=== PATIENT | male | born 1980 | race Native Hawaiian/Other Pacific Islander ===

== ENCOUNTER 2019-01-21 13:11 | Emergency (ER) | payer OTHER ==
[2019-01-21 13:20] VITALS: RESP 18
[2019-01-21] MEDS ORDERED: KETOROLAC 60 MG/2 ML VIAL IM STA (13:45)
--- NOTE | 2019-01-21 13:51 | ED ---
Back Pain HPI - General Chief Complaint: Back Pain/Injury Stated Complaint: back pain Time Seen by Provider: 01/21/19 13:37 Source: patient, RN notes reviewed Limitations: no limitations - History of Present Illness Initial Comments: 38-year-old male presents emergency Department with chief complaint of low back pain. Patient states he did fall a few weeks ago and then mild discomfort states he woke up this morning very stiff left low back pain rates into his hip. Patient states he has some symptoms associated numbness but no saddle anesthesias. Patient denies any bowel bladder incontinence or retention. Denies any abdominal pain. Patient is a known diabetic well-controlled. Patient denies any chest pain, shortness breath, headache, dizziness, fever or chills. - Related Data Previous Rx's Medication Instructions Recorded Cyclobenzaprine [Flexeril] 10 mg PO TID PRN #15 tab 01/21/19 Hydrocodone/Acetaminophen [[place] 1 tab PO Q6HR PRN #12 tab 01/21/19 5-325] Ibuprofen [Motrin] 600 mg PO Q8HR PRN #30 tab 01/21/19 Allergies Allergy/AdvReac Type Severity Reaction Status Date / Time No Known Allergies Allergy Verified 01/21/19 13:20 Review of Systems ROS Statement: Those systems with pertinent positive or pertinent negative responses have been documented in the HPI. ROS Other: All systems not noted in ROS Statement are negative. Past Medical History Past Medical History: Diabetes Mellitus History of Any Multi-Drug Resistant Organisms: None Reported Past Surgical History: No Surgical Hx Reported Past Psychological History: No Psychological Hx Reported Smoking Status: Current every day smoker Past Alcohol Use History: Occasional Past Drug Use History: None Reported General Exam Limitations: no limitations General appearance: alert, in no apparent distress Head exam: Present: atraumatic, normocephalic, normal inspection Eye exam: Present: normal appearance, PERRL, EOMI. Absent: scleral icterus, conjunctival injection, periorbital swelling ENT exam: Present: normal exam, mucous membranes moist Neck exam: Present: normal inspection, full ROM. Absent: tenderness, meningismus, lymphadenopathy Respiratory exam: Present: normal lung sounds bilaterally. Absent: respiratory distress, wheezes, rales, rhonchi, stridor Cardiovascular Exam: Present: regular rate, normal rhythm, normal heart sounds. Absent: systolic murmur, diastolic murmur, rubs, gallop, clicks GI/Abdominal exam: Present: soft, normal bowel sounds. Absent: distended, tenderness, guarding, rebound, rigid Extremities exam: Present: other (Lower extremity strength equal bilaterally, neurovascular intact equal color equal warmth there is pain with left straight leg raise) Back exam: Present: full ROM (Moderate discomfort), tenderness (Left low back), muscle spasm, paraspinal tenderness. Absent: vertebral tenderness Neurological exam: Present: alert, oriented X3, CN II-XII intact, reflexes normal. Absent: motor sensory deficit Skin exam: Present: warm, dry, intact, normal color. Absent: rash Course Vital Signs 01/21/19 13:18 Temperature 97.7 F Pulse Rate 83 Respiratory 18 Rate Blood Pressure 123/71 O2 Sat by Pulse 98 Oximetry Medical Decision Making - Medical Decision Making 38-year-old male presents emergency Department chief complaint of left low back pain. Patient's pain is worse with movement and reproducible. Patient symptoms consistent with lumbar region With it. X-rays obtained secondary to recent fall onto his back which showed no evidence of compression fracture though there is moderate spurring noted. Patient we discharged with pain medication, muscle relaxer. Disposition Clinical Impression: Lumbar radiculopathy Disposition: HOME SELF-CARE Condition: Stable Instructions (If sedation given, give patient instructions): Acute Low Back Pain (ED) Additional Instructions: Please return to the Emergency Department if symptoms worsen or any other concerns. Prescriptions: Cyclobenzaprine [Flexeril] 10 mg PO TID PRN #15 tab PRN Reason: Muscle Spasm Ibuprofen [Motrin] 600 mg PO Q8HR PRN #30 tab PRN Reason: Pain Hydrocodone/Acetaminophen [[place] 5-325] 1 tab PO Q6HR PRN #12 tab PRN Reason: Pain Is patient prescribed a controlled substance at d/c from ED?: No Referrals: Giuliano De Jesus MD [Primary Care Provider] - 1-2 days Time of Disposition: 14:29
--- NOTE | 2019-01-21 14:08 | XR ---
EXAMINATION TYPE: XR lumbosacral spine min 4V DATE OF EXAM: 01/21/2019 COMPARISON: NONE HISTORY: Back pain TECHNIQUE: 5 views FINDINGS: Lumbar vertebra have normal alignment. Posterior elements are intact. There is minor spurri ng of the endplates. Disc spaces are fairly normal. Sacroiliac joints appear normal. IMPRESSION: Minimal spurring. Otherwise negative exam. No fracture.
[2019-01-21 14:46] VITALS: BP 129/80; PULSE 76; TEMP 97.9
== END 2019-01-21 14:46 | disposition home or self-care (01) ==
LOC: EC 13:11
DX: M54.16 Radiculopathy, lumbar region (principal); F17.200 Nicotine dependence, unspecified, uncomplicated; Z91.81 History of falling
CPT/HCPCS: 72110; 99283; 96372; J1885

== ENCOUNTER → 2020-07-02 | Outpatient (CLI) | payer OTHER ==
[2020-07-02 11:57] LABS: Basophils % (A) 1 %; Eosinophils # (A) 0.2 k/uL (0-0.7); Eosinophils % (A) 3 %; HCT 44.4 % (39.0-53.0); HGB 14.4 gm/dL (13.0-17.5); Lymphocytes # (A) 1.4 k/uL (1.0-4.8); Lymphocytes % (A) 23 %; MCH 28.6 pg (25.0-35.0); MCHC 32.5 g/dL (31.0-37.0); MCV 88.1 fL (80.0-100.0); Mean Platelet Volume 7.3; Monocytes # (A) 0.2 k/uL (0-1.0); Monocytes % (A) 4 %; Neutrophils # (A) 4.1 k/uL (1.3-7.7); Neutrophils % (A) 68 %; Platelet Count 132 k/uL (150-450); RBC 5.04 m/uL (4.30-5.90); RDW 13.6 % (11.5-15.5)
[2020-07-03 01:01] LABS: Hemoglobin A1C 7.9 % (4.0-6.0)
[2020-07-03 03:44] LABS: African American GFR (CKD) 130.4 (60.0-200.0); Albumin 4.4 g/dL (3.80-4.90); Albumin/Globulin Ratio 1.52 (1.60-3.17); Anion Gap 9.1 mmol/L (4.00-12.00); BUN/Creat Ratio 18.75 Ratio (12.00-20.00); Calcium 9.3 mg/dL (8.7-10.3); Carbon Dioxide 26.9 mmol/L (21.6-31.8); Chol/HDL Ratio 6.79; Globulin 2.9 g/dL (1.6-3.3); LDL Cholesterol,Calculated 123.2 mg/dL (0.0-131.0); Non-African American GFR(CKD) 112.5 (60.0-200.0); Potassium 4.2 mmol/L (3.5-5.5); Total Bilirubin 0.6 mg/dL (0.3-1.2); Total Protein 7.3 g/dL (6.2-8.2); VLDL Calculation 38.8 mg/dL (5.00-40.00)
== END | disposition home or self-care (01) ==
LOC: LABWHC1 09:52
PROVIDERS: ATTEND Family Medicine
DX: E11.9 Type 2 diabetes mellitus without complications (principal); Z20.9 Contact with and (suspected) exposure to unspecified communicable disease
CPT/HCPCS: 36415; 80053; 80061; 83036; 85025; 86803

== ENCOUNTER → 2020-09-01 | Outpatient (CLI) | payer OTHER ==
[2020-09-01 10:33] LABS: Basophils # (A) 0.1 k/uL (0-0.2); Basophils % (A) 1 %; Eosinophils # (A) 0.2 k/uL (0-0.7); Eosinophils % (A) 3 %; HGB 14.8 gm/dL (13.0-17.5); Lymphocytes # (A) 1.2 k/uL (1.0-4.8); Lymphocytes % (A) 23 %; MCH 30.2 pg (25.0-35.0); MCHC 34.5 g/dL (31.0-37.0); MCV 87.5 fL (80.0-100.0); Mean Platelet Volume 7.3; Monocytes # (A) 0.3 k/uL (0-1.0); Monocytes % (A) 5 %; Neutrophils # (A) 3.4 k/uL (1.3-7.7); Neutrophils % (A) 67 %; Platelet Count 123 k/uL (150-450); RBC 4.92 m/uL (4.30-5.90); WBC 5.1 k/uL (3.8-10.6)
[2020-09-01 15:50] LABS: African American GFR (CKD) 124.3 (60.0-200.0); Albumin 4.4 g/dL (3.80-4.90); Albumin/Globulin Ratio 1.42 (1.60-3.17); Anion Gap 9.7 mmol/L (4.00-12.00); BUN/Creat Ratio 15.56 Ratio (12.00-20.00); Calcium 9.4 mg/dL (8.7-10.3); Carbon Dioxide 24.3 mmol/L (21.6-31.8); Chol/HDL Ratio 6.58; Globulin 3.1 g/dL (1.6-3.3); Non-African American GFR(CKD) 107.2 (60.0-200.0); Potassium 4.1 mmol/L (3.5-5.5); Total Bilirubin 0.6 mg/dL (0.2-1.2); Total Protein 7.5 g/dL (6.2-8.2)
== END | disposition home or self-care (01) ==
LOC: LABWHC1 09:25
PROVIDERS: ATTEND Nurse Practitioner Family
DX: E11.9 Type 2 diabetes mellitus without complications (principal)
CPT/HCPCS: 36415; 80053; 80061; 83036; 85025

== ENCOUNTER → 2020-09-03 | Outpatient (CLI) | payer OTHER ==
--- NOTE | 2020-09-03 12:04 | XR ---
EXAMINATION TYPE: XR tibia fibula LT DATE OF EXAM: 09/03/2020 COMPARISON: NONE HISTORY: Pain TECHNIQUE: Two views are submitted. FINDINGS: The osseous structures are intact. The joint spaces are preserved. Chronic deformity involving the medial malleolus. Large calcaneal spurs are seen and there is calcification along the plantar a bone erosive. Small amount of soft tissue edema posterior to the distal tibia and fibula. Correlate clinic ally. Pes planus deformity suspected. IMPRESSION: 1. No acute osseous abnormality. See above.
--- NOTE | 2020-09-03 12:06 | XR ---
EXAMINATION TYPE: XR wrist complete LT DATE OF EXAM: 09/03/2020 COMPARISON: NONE HISTORY: Pain TECHNIQUE: Four views submitted. FINDINGS: The osseous structures are intact. The joint spaces are preserved and there is no acute fracture or dislocation. Chronic appearing deformity of the fifth metacarpal. IMPRESSION: 1. No definite acute fracture or dislocation if symptoms persist, follow-up study in 7 to 10 days wo uld be suggested
== END | disposition home or self-care (01) ==
LOC: RADXRMAIN 11:35
PROVIDERS: ATTEND Nurse Practitioner Family
DX: M79.605 Pain in left leg (principal); M25.532 Pain in left wrist

== ENCOUNTER → 2020-09-12 | Outpatient (CLI) | payer OTHER ==
--- NOTE | 2020-09-12 09:41 | US ---
EXAMINATION TYPE: US venous doppler duplex LE LT DATE OF EXAM: 09/12/2020 8:44 AM COMPARISON: NONE CLINICAL HISTORY: M79.605 PAIN IN LT LEG. Pain in leg. No injury. No redness. No swelling. SIDE PERFORMED: Left TECHNIQUE: The lower extremity deep venous system is examined utilizing real time linear array sonog subhash with graded compression, doppler sonography and color-flow sonography. VESSELS IMAGED: Common Femoral Vein Deep Femoral Vein Greater Saphenous Vein * Femoral Vein Popliteal Vein Small Saphenous Vein * Proximal Calf Veins (* superficial vessels) Left Leg: Negative for DVT IMPRESSION: 1. Left lower extremity negative for deep venous thrombosis.
--- NOTE | 2020-09-14 10:22 | US ---
EXAMINATION TYPE: US liver DATE OF EXAM: 09/12/2020 COMPARISON: NONE CLINICAL HISTORY: R74.01 ELEVATED LEVELS OF LIVER TRANSINASE. Abnormal labs. EXAM MEASUREMENTS: Liver Length: 15.1 cm Gallbladder Wall: 0.2 cm Right Kidney: 12.0 x 5.8 x 6.5 cm Pancreas: Tail obscured by overlying bowel gas Liver: Echogenic and coarse. Hypoechoic area visualized adjacent to GB = 2.1 x 2.4 x 1.9 cm . This is nonspecific. Additional workup with contrast CT is recommended Gallbladder: wnl Evidence for sonographic Damon's sign: neg CBD: Obscured by overlying bowel gas Right Kidney: No hydronephrosis or masses seen IMPRESSION: 1. Moderate fatty infiltration liver. 2. Hypoechoic area adjacent to the gallbladder bed fossa. Consider CT examination with contrast for a dditional evaluation.
== END | disposition home or self-care (01) ==
LOC: RADUSWWP 08:17
PROVIDERS: ATTEND Family Medicine
DX: R74.01 Elevation of levels of liver transaminase levels (principal)
CPT/HCPCS: 76705

== ENCOUNTER → 2020-09-22 | Outpatient (CLI) | payer OTHER ==
[2020-09-22 11:29] LABS: African American GFR (CKD) >90 (>60 ml/min/1.73 sqM); Blood Urea Nitrogen 15 mg/dL (9-20); Non-African American GFR(CKD) >90 (>60 ml/min/1.73 sqM)
--- NOTE | 2020-09-22 12:27 | CT ---
EXAMINATION TYPE: CT abdomen w con DATE OF EXAM: 09/22/2020 COMPARISON: NONE HISTORY: 40-year-old male liver mass, R16.0 Hepatomegaly not elsewhere classified. TECHNIQUE: Contiguous axial scanning of the abdomen following administration of 100 ml Omnipaque 300 IV contrast. Delayed images through the kidneys and coronal/sagittal reconstructions performed. CT DLP: 2026.5 mGycm Automated exposure control for dose reduction was used. FINDINGS: Heart normal size without pericardial effusion. Strandy atelectasis inferior lingula. Lung bases othe rwise clear without pleural effusion. There is subtle contour nodularity of the liver. No focal lesion is seen. Liver measures 16.7 cm cran iocaudal which is upper limits of normal. Portal venous system is patent. No biliary ductal dilatatio n. Gallbladder hydropic at 12.0 x 5.4 cm but without any surrounding inflammation or wall thickening [place] arent by CT. The adrenal glands, kidneys, and pancreas appear within normal limits. Spleen enlarged at 18.1 cm. No dilated small bowel, free fluid, or free air. No mesenteric or retroperitoneal lymphadenopathy. Mild stool burden. No pericolonic inflammatory change. The pelvis is not imaged. Bones: Degenerative bridging ankylosis SI joints. DISH within the visualized lower thoracic spine. IMPRESSION: 1. SUBTLE CONTOUR NODULARITY OF THE LIVER. FURTHER CLINICAL CORRELATION/WORKUP RECOMMENDED FOR UNDERL EMILEE CIRRHOSIS. 2. SPLENOMEGALY AT 18.1 CM. 3. HYDROPIC GALLBLADDER PROBABLY DUE TO FASTING STATE. IF RIGHT UPPER QUADRANT PAIN, FOLLOW-UP ULTRAS OUND OR HIDA SCAN. 4. PELVIS NOT IMAGED.
== END | disposition home or self-care (01) ==
LOC: RADCTMAIN 10:08
PROVIDERS: ATTEND Family Medicine
DX: R16.1 Splenomegaly, not elsewhere classified (principal); K82.8 Other specified diseases of gallbladder; K76.89 Other specified diseases of liver
CPT/HCPCS: 82565; 84520; 74160; 36415; Q9967

== ENCOUNTER → 2020-09-29 | Outpatient (CLI) | payer OTHER ==
[2020-09-29 13:04] LABS: HCT 42.7 % (39.0-53.0); HGB 14.9 gm/dL (13.0-17.5); MCH 30.4 pg (25.0-35.0); MCHC 34.8 g/dL (31.0-37.0); MCV 87.2 fL (80.0-100.0); Mean Platelet Volume 7.5; Platelet Count 108 k/uL (150-450); RBC 4.89 m/uL (4.30-5.90); RDW 13.2 % (11.5-15.5); WBC 5.5 k/uL (3.8-10.6)
[2020-09-29 20:38] LABS: African American GFR (CKD) 130.4 (60.0-200.0); Albumin 4.7 g/dL (3.80-4.90); Albumin/Globulin Ratio 1.47 (1.60-3.17); Anion Gap 5.2 mmol/L (4.00-12.00); Calcium 9.6 mg/dL (8.7-10.3); Carbon Dioxide 29.8 mmol/L (21.6-31.8); Chol/HDL Ratio 6.75; Globulin 3.2 g/dL (1.6-3.3); LDL Cholesterol,Calculated 136.4 mg/dL (0.0-131.0); Non-African American GFR(CKD) 112.5 (60.0-200.0); Potassium 4.5 mmol/L (3.5-5.5); Total Bilirubin 0.5 mg/dL (0.3-1.2); Total Protein 7.9 g/dL (6.2-8.2); VLDL Calculation 47.6 mg/dL (5.00-40.00)
[2020-09-29 21:07] LABS: Hemoglobin A1C 8.2 % (4.0-6.0)
== END | disposition home or self-care (01) ==
LOC: LABWHC1 11:12
PROVIDERS: ATTEND Nurse Practitioner Family
DX: E11.9 Type 2 diabetes mellitus without complications (principal)
CPT/HCPCS: 36415; 80053; 80061; 83036; 85027

== ENCOUNTER → 2020-10-24 | Outpatient (CLI) | payer OTHER ==
[2020-10-24 11:12] LABS: Basophils # (A) 0.1 k/uL (0-0.2); Basophils % (A) 1 %; Eosinophils # (A) 0.1 k/uL (0-0.7); Eosinophils % (A) 3 %; HCT 42.4 % (39.0-53.0); HGB 14.8 gm/dL (13.0-17.5); Lymphocytes # (A) 1.2 k/uL (1.0-4.8); Lymphocytes % (A) 23 %; MCH 30.4 pg (25.0-35.0); MCHC 35.1 g/dL (31.0-37.0); MCV 86.7 fL (80.0-100.0); Mean Platelet Volume 7.3; Monocytes # (A) 0.3 k/uL (0-1.0); Monocytes % (A) 5 %; Neutrophils # (A) 3.5 k/uL (1.3-7.7); Neutrophils % (A) 67 %; Platelet Count 110 k/uL (150-450); RBC 4.88 m/uL (4.30-5.90); RDW 13.3 % (11.5-15.5); WBC 5.1 k/uL (3.8-10.6)
[2020-10-24 11:32] LABS: Prothrombin Time 10.7 sec (9.0-12.0)
[2020-10-24 15:28] LABS: Protein, Total 7.3 g/dL (6.2-8.2)
[2020-10-24 16:19] LABS: Hepatitis B Surface Antigen Non-Reactive (Non-Reactive)
[2020-10-24 16:20] LABS: Hepatitis A Antibody IgM Non-Reactive (Non-Reactive); Hepatitis B Core IgM Non-Reactive (Non-Reactive); Hepatitis C IgG Antibody Non-Reactive (Non-Reactive)
[2020-10-24 17:00] LABS: % Iron Saturation 23.59 (15.00-50.00); African American GFR (CKD) 124.3 (60.0-200.0); Albumin 4.6 g/dL (3.80-4.90); Albumin/Globulin Ratio 1.7 (1.60-3.17); Anion Gap 10.5 mmol/L (4.00-12.00); BUN/Creat Ratio 13.33 Ratio (12.00-20.00); Calcium 9.6 mg/dL (8.7-10.3); Carbon Dioxide 26.5 mmol/L (21.6-31.8); Globulin 2.7 g/dL (1.6-3.3); Non-African American GFR(CKD) 107.2 (60.0-200.0); Potassium 4.3 mmol/L (3.5-5.5); Total Bilirubin 0.7 mg/dL (0.2-1.2); Total Protein 7.3 g/dL (6.2-8.2)
[2020-10-24 17:41] LABS: HIV 2 AB Non-Reactive (Non-Reactive); HIV AB P24 Non-Reactive (Non-Reactive); HIV P24 AG Non-Reactive (Non-Reactive)
[2020-10-24 20:09] LABS: Alpha Fetoprotein, Tumor Mkr 2.9 ng/mL (0.0-7.9)
[2020-10-26 09:03] LABS: Ceruloplasmin 23.7 mg/dL (20.0-60.0)
== END | disposition home or self-care (01) ==
LOC: LABWHC1 09:45
PROVIDERS: ATTEND Nurse Practitioner
DX: D69.6 Thrombocytopenia, unspecified (principal); R74.01 Elevation of levels of liver transaminase levels; Z71.3 Dietary counseling and surveillance
CPT/HCPCS: 36415; 80053; 80074; 82103; 82105; 82390; 82728; 83516; 83540; 83550; 84165; 85025; 85610; 86038; 86376; 87390

== ENCOUNTER 2020-10-30 07:25 | Day surgery (SDC) | payer OTHER ==
[2020-10-29 10:45] VITALS: BMI 37.3
[~2020-10-30 07:25] MED LIST: LACTATED RINGERS 1,000 ML IV SCH; LIDOCAINE 1% (10MG/ML) FOR IV START INTRADERMA PRN
[2020-10-30 08:09] VITALS: RESP 16; TEMP 971
[2020-10-30 08:12] LABS: Glucose,Whole Blood 163 mg/dL (75-99)
[2020-10-30] MEDS ORDERED: PROPOFOL 10 MG/ML 20 ML VIAL IV ONE (08:43)
[2020-10-30] MEDS ORDERED: LIDOCAINE 1% INJ 10MG/ML (20 ML MDV) ONE (08:43)
--- NOTE | 2020-10-30 09:01 | P.PCN ---
Date of Procedure: 10/30/20 Description of Procedure: BRIEF HISTORY: Patient is a 40-year-old male presenting for EGD for evaluation of heartburn. The patient was seen in the clinic and started on omeprazole therapy for symptoms of reflux. He was also evaluated for elevated liver enzymes and splenomegaly and is scheduled to follow up in the clinic for results of serologic workup. PROCEDURE PERFORMED: Esophagogastroduodenoscopy with biopsy. PREOPERATIVE DIAGNOSIS: Heartburn, GERD, rule out esophageal varices. ESTIMATED BLOOD LOSS: Minimal. IV sedation per anesthesia. PROCEDURE: After informed consent was obtained, the patient was brought into the endoscopy unit. IV sedation was administered by Anesthesia under continuous monitoring. Initially the Olympus GIF-190 video endoscope was inserted into the mouth. Esophagus intubated without any difficulty. It was gradually advanced into the stomach and duodenum and carefully examined. The bulb and the second part of the duodenum appeared normal, with biopsies taken. The scope at this time was withdrawn to the stomach, adequately insufflated with air, and upon careful examination, mucosa of the antrum, body, cardia and the fundus appeared normal, except for some mild scattered erythema in the antrum and body suggestive of mild gastritis with biopsies taken. The scope was then withdrawn into the esophagus. The GE junction was located at 41 cm from the incisors. The esophagus appeared normal. There were no erosions or ulcerations or varices noted seen and the patient tolerated the procedure well. IMPRESSION: 1. Mild gastritis. 2. Normal-appearing esophagus with no varices noted. 3. Biopsies of the duodenum, antrum and body. RECOMMENDATIONS: The findings of this examination were discussed with the patient. Okay to resume diet. Okay to resume medications. Continue omeprazole therapy. Follow- up in GI clinic as scheduled. If diagnosis of cirrhosis is confirmed would recommend repeat EGD in 2 years for evaluation of esophageal varices.
[2020-10-30] MEDS ORDERED: ONDANSETRON 4 MG/2 ML VIAL ONE (09:02)
[2020-10-30 09:20] VITALS: BP 128/84; PULSE 66
== END 2020-10-30 09:54 | disposition home or self-care (01) ==
LOC: ORWHC2ENDO 07:25
PROVIDERS: ATTEND Internal Medicine
DX: K29.50 Unspecified chronic gastritis without bleeding (principal); B96.81 Helicobacter pylori [H. pylori] as the cause of diseases classified elsewhere; K21.9 Gastro-esophageal reflux disease without esophagitis; E11.9 Type 2 diabetes mellitus without complications; F17.200 Nicotine dependence, unspecified, uncomplicated; Z79.84 Long term (current) use of oral hypoglycemic drugs; Z79.899 Other long term (current) drug therapy
CPT/HCPCS: 43239; J2405; J2001; J2704; 88305; 88342

== ENCOUNTER → 2020-11-06 | Outpatient (CLI) | payer OTHER ==
--- NOTE | 2020-11-07 00:04 | MR ---
EXAMINATION TYPE: MR liver wo/w con DATE OF EXAM: 11/06/2020 COMPARISON: CT scan 09/22/2020 HISTORY: Abnormal CT, Liver Nodule CONTRAST: Standard multiplanar, multisequence MRI departmental protocol utilizing 12 mL intravenous Gadavist ga dolinium contrast. Spleen is moderately enlarged and measures 18 cm. Liver shows no focal defect. The bile ducts are not dilated. Common bile duct appears normal. Liver shows no focal defect. Spleen shows no focal defect. There is no sign of pancreatic mass. Gallbladder appears normal. I see no gallbladder wall thickenin g. There is no evidence of ascites. There is no adrenal mass. Heart size is normal. There is no sign of pericardial effusion. There is no ascites. There is no evidence of pleural effusion. There is normal flow-void in the portal venous sy stem. Contrast images show normal enhancement of the portal venous system. There is no pathologic enh ancement of the liver and spleen. Kidneys show normal contrast enhancement. Kidneys have normal size and contour. There is no hydronephrosis. IMPRESSION: There is moderate splenomegaly not changed compared to recent CT scan. No focal abnormality. No abnor mality of the liver.
== END | disposition home or self-care (01) ==
LOC: RADMRIMAIN 11:22
PROVIDERS: ATTEND Nurse Practitioner
DX: R16.1 Splenomegaly, not elsewhere classified (principal); R93.2 Abnormal findings on diagnostic imaging of liver and biliary tract
CPT/HCPCS: 74183; A9585

== ENCOUNTER 2020-11-27 08:40 | Day surgery (SDC) | payer OTHER ==
[2020-11-27 09:15] LABS: Platelet Count 116 k/uL (150-450)
[2020-11-27 09:30] VITALS: RESP 16; TEMP 98
[2020-11-27] MEDS ORDERED: ALPRAZolam 0.5 MG TAB PO STA (09:38)
[2020-11-27 09:39] LABS: Prothrombin Time 10.6 sec (9.0-12.0)
[2020-11-27] MEDS ORDERED: HYDROmorphone 0.5 MG/0.5 ML SYRINGE IVP STA (10:07)
--- NOTE | 2020-11-27 10:34 | CT ---
EXAMINATION TYPE: CT biopsy liver DATE OF EXAM: 11/27/2020 COMPARISON: NONE HISTORY: Elevated LFTs CT DLP: 1029mGycm The procedure was explained to the patient. The risks, complications, benefits, and alternatives wer e discussed and any questions were answered. Informed consent was obtained. Patient was placed supi ne on the CT table and prepped and draped in the usual sterile fashion. All elements of maximal barrier and sterile technique utilized. Utilizing CT guidance, an 18 gauge core biopsy needle access into the left lobe of the liver was ach ieved and a single 18 gauge core sample was obtained. The patient was stable throughout the procedur e and remained stable upon discharge. IMPRESSION: 1. Successful 18 gauge core biopsy of the liver.
[2020-11-27 13:33] VITALS: PULSE 78
[2020-11-27 14:13] VITALS: BP 116/69
== END 2020-11-27 14:26 | disposition home or self-care (01) ==
LOC: RADPROMAIN 08:40
PROVIDERS: ATTEND Internal Medicine Gastroenterology
DX: K74.60 Unspecified cirrhosis of liver (principal); K75.81 Nonalcoholic steatohepatitis (NASH); F17.210 Nicotine dependence, cigarettes, uncomplicated; E11.9 Type 2 diabetes mellitus without complications; E78.5 Hyperlipidemia, unspecified; E66.9 Obesity, unspecified; Z68.37 Body mass index [BMI] 37.0-37.9, adult; R16.1 Splenomegaly, not elsewhere classified; Z86.19 Personal history of other infectious and parasitic diseases; D69.6 Thrombocytopenia, unspecified; Z83.3 Family history of diabetes mellitus; Z79.84 Long term (current) use of oral hypoglycemic drugs; Z79.899 Other long term (current) drug therapy
CPT/HCPCS: 82947; 85049; 85610; 88313; 88307; 96374; 36415; 47000; 77012; J1170

== ENCOUNTER → 2020-12-02 | Outpatient (CLI) | payer OTHER ==
[2020-12-02 18:35] LABS: Basophils # (A) 0.03 X 10*3/uL (0.00-0.10); Basophils % (A) 0.6 %; Eosinophils % (A) 1.9 %; HCT 43.6 % (39.6-50.0); HGB 14.8 g/dL (13.0-17.0); Lymphocytes # (A) 1.29 X 10*3/uL (0.90-5.00); Lymphocytes % (A) 24.5 %; MCH 29.8 pg (27.0-32.0); MCHC 33.9 g/dL (32.0-37.0); MCV 87.9 fL (80.0-97.0); Mean Platelet Volume 10.3 fL (9.5-12.2); Monocytes # (A) 0.29 X 10*3/uL (0.20-1.00); Monocytes % (A) 5.5 %; Neutrophils # (A) 3.54 X 10*3/uL (1.80-7.70); Neutrophils % (A) 67.3 %; Platelet Count 127 X 10*3/uL (140-440); RBC 4.96 X 10*6/uL (4.40-5.60); RDW 13.2 % (11.5-14.5); WBC 5.26 X 10*3/uL (4.50-10.00)
[2020-12-02 18:59] LABS: Prothrombin Time 10.9 sec (9.9-11.9)
[2020-12-02 23:39] LABS: Albumin 4.3 g/dL (3.80-4.90); Albumin/Globulin Ratio 1.13 (1.60-3.17); Bilirubin, Conjugated 0.2 mg/dL (0.20-0.40); Bilirubin,Unconjugated 0.4 mg/dL; Globulin 3.8 g/dL (1.6-3.3); Total Bilirubin 0.6 mg/dL (0.3-1.2); Total Protein 8.1 g/dL (6.2-8.2)
== END | disposition home or self-care (01) ==
LOC: LABWHC1 10:08
PROVIDERS: ATTEND Nurse Practitioner
DX: R74.01 Elevation of levels of liver transaminase levels (principal); D73.1 Hypersplenism; A04.8 Other specified bacterial intestinal infections
CPT/HCPCS: 36415; 80076; 83013; 85025; 85610

== ENCOUNTER → 2021-01-05 | Outpatient (CLI) | payer OTHER ==
[2021-01-05 16:47] LABS: Hemoglobin A1C 7.3 % (4.0-6.0)
[2021-01-05 22:51] LABS: Chol/HDL Ratio 6.77
== END | disposition home or self-care (01) ==
LOC: LABWHC1 09:21
PROVIDERS: ATTEND Nurse Practitioner Family
DX: E11.9 Type 2 diabetes mellitus without complications (principal)
CPT/HCPCS: 36415; 80061; 83036

== ENCOUNTER 2021-02-09 16:11 | Emergency (ER) | payer OTHER ==
[2021-02-09 16:15] VITALS: RESP 18
[2021-02-09] MEDS ORDERED: SODIUM CHLORIDE 0.9% 1,000 ML IV STA (16:47)
[2021-02-09] MEDS ORDERED: MORPHINE SULFATE 4 MG/ML SYRINGE IVP STA (16:48)
[2021-02-09] MEDS ORDERED: PANTOPRAZOLE 40 MG/10 ML VIAL IVP STA (16:48)
--- NOTE | 2021-02-09 17:13 | ED ---
Dizziness HPI - General Chief Complaint: Dizziness Stated Complaint: Weakness Time Seen by Provider: 02/09/21 16:41 Source: patient, RN notes reviewed Mode of arrival: ambulatory Limitations: no limitations - History of Present Illness Initial Comments: Patient is a 40-year-old male that presents to emergency room complaining of dizziness and black stools. He notes that he was recently diagnosed with PRESTON. He notes over the last several days he's been lightheaded and noticed that his stools were dark in color. He denied any medical history involving his intestines stomach aresymmetric. He did note that he was recently told he might have irritable bowel syndrome. He was in no pain or discomfort while sitting up in bed during the exam interview. She denied any chest pain shortness of breath headache vomiting diarrhea constipation fever fatigue chills. - Related Data Home Medications Medication Instructions Recorded Confirmed metFORMIN HCL 1,000 mg PO BID 10/29/20 11/27/20 Multivitamins, Thera [Multivitamin 1 tab PO DAILY 11/12/20 11/27/20 (formulary)] Omeprazole 20 mg PO DAILY 11/12/20 11/12/20 Allergies Allergy/AdvReac Type Severity Reaction Status Date / Time No Known Allergies Allergy Verified 02/09/21 16:12 Review of Systems ROS Statement: Those systems with pertinent positive or pertinent negative responses have been documented in the HPI. ROS Other: All systems not noted in ROS Statement are negative. Past Medical History Past Medical History: Diabetes Mellitus, GERD/Reflux Additional Past Medical History / Comment(s): abnormal liver function---having liver biopsy 11/18/20 History of Any Multi-Drug Resistant Organisms: None Reported Past Surgical History: No Surgical Hx Reported Additional Past Surgical History / Comment(s): recent EGD--H.pylori found and on antibiotics. Should be done before liver biopsy planned for 11/18/20 Past Anesthesia/Blood Transfusion Reactions: No Reported Reaction Past Psychological History: No Psychological Hx Reported Smoking Status: Current every day smoker Past Alcohol Use History: Rare Past Drug Use History: None Reported - Past Family History Father Family Medical History: Liver Disease Additional Family Medical History / Comment(s): ETOH cirrhosis General Exam Limitations: no limitations General appearance: alert, in no apparent distress, obese Head exam: Present: atraumatic, normocephalic, normal inspection Eye exam: Present: normal appearance, PERRL, EOMI. Absent: scleral icterus, conjunctival injection, periorbital swelling ENT exam: Present: normal exam, mucous membranes moist Neck exam: Present: normal inspection Respiratory exam: Present: normal lung sounds bilaterally. Absent: respiratory distress, wheezes, rales, rhonchi, stridor Cardiovascular Exam: Present: regular rate, normal rhythm, normal heart sounds. Absent: systolic murmur, diastolic murmur, rubs, gallop, clicks GI/Abdominal exam: Present: soft, tenderness (In the left lower suprapubic and right upper quadrant.), normal bowel sounds. Absent: distended, guarding, rebound, rigid Extremities exam: Present: normal inspection, full ROM, normal capillary refill. Absent: tenderness, pedal edema, joint swelling, calf tenderness Neurological exam: Present: alert, oriented X3, CN II-XII intact Psychiatric exam: Present: normal affect, normal mood Skin exam: Present: warm, dry, intact, normal color. Absent: rash Course Vital Signs 02/09/21 16:13 Temperature 98.3 F Pulse Rate 97 Respiratory 18 Rate Blood Pressure 127/73 O2 Sat by Pulse 99 Oximetry Medical Decision Making - Medical Decision Making 40-year-old male complaining of dizziness with dark colored stools. Labs, occult blood test, EKG, laboratory monitor, CT of the abdomen and pelvis, 40 mg Protonix, 4 mg of morphine ordered Labs unremarkable. Case discussed with Dr. Figueredo, patient can discharge home with follow-up to primary care. - Lab Data Result diagrams: 02/09/21 17:45 02/09/21 17:45 Lab Results 02/09/21 02/09/21 02/09/21 Range/Units 17:45 17:45 17:45 WBC 3.4 L (3.8-10.6) k/uL RBC 5.05 (4.30-5.90) m/uL Hgb 14.5 (13.0-17.5) gm/dL Hct 43.3 (39.0-53.0) % MCV 85.8 (80.0-100.0) fL MCH 28.7 (25.0-35.0) pg MCHC 33.4 (31.0-37.0) g/dL RDW 14.0 (11.5-15.5) % Plt Count 106 L (150-450) k/uL MPV 7.2 Neutrophils % 54 % Lymphocytes % 31 % Monocytes % 9 % Eosinophils % 3 % Basophils % 1 % Neutrophils # 1.8 (1.3-7.7) k/uL Lymphocytes # 1.1 (1.0-4.8) k/uL Monocytes # 0.3 (0-1.0) k/uL Eosinophils # 0.1 (0-0.7) k/uL Basophils # 0.0 (0-0.2) k/uL PT 10.3 (9.0-12.0) sec INR 1.0 (<1.2) Sodium (137-145) mmol/L Potassium (3.5-5.1) mmol/L Chloride (98-107) mmol/L Carbon Dioxide (22-30) mmol/L Anion Gap mmol/L BUN (9-20) mg/dL Creatinine (0.66-1.25) mg/dL Est GFR (CKD-EPI)AfAm (>60 ml/min/1.73 sqM) Est GFR (CKD-EPI)NonAf (>60 ml/min/1.73 sqM) Glucose (74-99) mg/dL Plasma Lactic Acid Flo (0.7-2.0) mmol/L Calcium (8.4-10.2) mg/dL Total Bilirubin (0.2-1.3) mg/dL AST (17-59) U/L ALT (4-49) U/L Alkaline Phosphatase (38-126) U/L Total Protein (6.3-8.2) g/dL Albumin (3.5-5.0) g/dL Urine Color Urine Appearance (Clear) Urine pH (5.0-8.0) Ur Specific [place] (1.001-1.035) Urine Protein (Negative) Urine Glucose (UA) (Negative) Urine Ketones (Negative) Urine Blood (Negative) Urine Nitrite (Negative) Urine Bilirubin (Negative) Urine Urobilinogen (<2.0) mg/dL Ur Leukocyte Esterase (Negative) Stool Occult Blood Negative (Negative) 02/09/21 02/09/21 02/09/21 Range/Units 17:45 17:45 17:45 WBC (3.8-10.6) k/uL RBC (4.30-5.90) m/uL Hgb (13.0-17.5) gm/dL Hct (39.0-53.0) % MCV (80.0-100.0) fL MCH (25.0-35.0) pg MCHC (31.0-37.0) g/dL RDW (11.5-15.5) % Plt Count (150-450) k/uL MPV Neutrophils % % Lymphocytes % % Monocytes % % Eosinophils % % Basophils % % Neutrophils # (1.3-7.7) k/uL Lymphocytes # (1.0-4.8) k/uL Monocytes # (0-1.0) k/uL Eosinophils # (0-0.7) k/uL Basophils # (0-0.2) k/uL PT (9.0-12.0) sec INR (<1.2) Sodium 141 (137-145) mmol/L Potassium 4.0 (3.5-5.1) mmol/L Chloride 106 (98-107) mmol/L Carbon Dioxide 27 (22-30) mmol/L Anion Gap 8 mmol/L BUN 12 (9-20) mg/dL Creatinine 0.80 (0.66-1.25) mg/dL Est GFR (CKD-EPI)AfAm >90 (>60 ml/min/1.73 sqM) Est GFR (CKD-EPI)NonAf >90 (>60 ml/min/1.73 sqM) Glucose 117 H (74-99) mg/dL Plasma Lactic Acid Flo 1.0 (0.7-2.0) mmol/L Calcium 9.2 (8.4-10.2) mg/dL Total Bilirubin 0.6 (0.2-1.3) mg/dL AST 112 H (17-59) U/L ALT 115 H (4-49) U/L Alkaline Phosphatase 82 (38-126) U/L Total Protein 7.5 (6.3-8.2) g/dL Albumin 4.1 (3.5-5.0) g/dL Urine Color Yellow Urine Appearance Clear (Clear) Urine pH 5.5 (5.0-8.0) Ur Specific [place] 1.050 H (1.001-1.035) Urine Protein Negative (Negative) Urine Glucose (UA) Negative (Negative) Urine Ketones Negative (Negative) Urine Blood Negative (Negative) Urine Nitrite Negative (Negative) Urine Bilirubin Negative (Negative) Urine Urobilinogen <2.0 (<2.0) mg/dL Ur Leukocyte Esterase Negative (Negative) Stool Occult Blood (Negative) - EKG Data -: EKG Interpreted by Me EKG shows normal: sinus rhythm Rate: normal EKG Comments: Ventricular rate 84 bpm, AL interval 136 ms, QRS duration 88 ms, QT/QTC 366/432 ms, PRT axes 58/21/53. Normal sinus rhythm, normal ECG. - Radiology Data Radiology results: report reviewed, image reviewed CT of the abdomen and pelvis: Normal appendix. Splenomegaly unchanged. Dilated gallbladder unchanged and suggestive of gallbladder dysfunction. No dilated ducts. Disposition Clinical Impression: Dehydration Disposition: HOME SELF-CARE Condition: Stable Instructions (If sedation given, give patient instructions): Dizziness (ED) Additional Instructions: Please return to the Emergency Department if symptoms worsen or any other concerns. Increase oral fluid intake. Follow-up primary care in 3-5 days. Is patient prescribed a controlled substance at d/c from ED?: No Referrals: Irvin Hernandez MD [Primary Care Provider] - 1-2 days Time of Disposition: 20:35
[2021-02-09 18:02] LABS: Basophils % (A) 1 %; Eosinophils # (A) 0.1 k/uL (0-0.7); Eosinophils % (A) 3 %; HCT 43.3 % (39.0-53.0); HGB 14.5 gm/dL (13.0-17.5); Lymphocytes # (A) 1.1 k/uL (1.0-4.8); Lymphocytes % (A) 31 %; MCH 28.7 pg (25.0-35.0); MCHC 33.4 g/dL (31.0-37.0); MCV 85.8 fL (80.0-100.0); Mean Platelet Volume 7.2; Monocytes # (A) 0.3 k/uL (0-1.0); Monocytes % (A) 9 %; Neutrophils # (A) 1.8 k/uL (1.3-7.7); Neutrophils % (A) 54 %; Platelet Count 106 k/uL (150-450); RBC 5.05 m/uL (4.30-5.90); WBC 3.4 k/uL (3.8-10.6)
[2021-02-09 18:11] LABS: ALT 115 U/L (4-49); AST 112 U/L (17-59); African American GFR (CKD) >90 (>60 ml/min/1.73 sqM); Albumin 4.1 g/dL (3.5-5.0); Alkaline Phosphatase 82 U/L (38-126); Anion Gap 8 mmol/L; Blood Urea Nitrogen 12 mg/dL (9-20); Calcium 9.2 mg/dL (8.4-10.2); Carbon Dioxide 27 mmol/L (22-30); Chloride 106 mmol/L (98-107); Glucose 117 mg/dL (74-99); Non-African American GFR(CKD) >90 (>60 ml/min/1.73 sqM); Sodium 141 mmol/L (137-145); Total Bilirubin 0.6 mg/dL (0.2-1.3); Total Protein 7.5 g/dL (6.3-8.2)
[2021-02-09 18:18] LABS: Prothrombin Time 10.3 sec (9.0-12.0)
--- NOTE | 2021-02-09 19:27 | CT ---
EXAMINATION TYPE: CT abdomen pelvis w con DATE OF EXAM: 02/09/2021 COMPARISON: 09/22/2020 HISTORY: Abdominal pain and dark stool. CT DLP: 1909.6 mGycm Automated exposure control for dose reduction was used. CONTRAST: Performed with IV Contrast, patient injected with 100ml mL of Isovue 300. Lung bases are clear. There is no pleural effusion. Heart size is normal. There is no pericardial eff usion. The liver spleen stomach pancreas appear intact. Spleen is enlarged and measures 18 cm. The bile duct s are not dilated. Gallbladder is dilated and measures 5.2 cm in diameter. I see no gallbladder wall thickening. There is no adrenal mass. Kidneys show satisfactory contrast opacification. There is no hydronephrosi s. Ureters are not dilated. There is no retroperitoneal adenopathy. Appendix is posterior and appears normal. Bladder distends smoothly. There is no inguinal hernia. There is no evidence of pelvic mass. There is no mesenteric edema. There is no ascites or free air. There is no bowel obstruction. The lum bar vertebra have normal alignment. There is no compression fracture. The bony pelvis is intact. Hip joints are intact. There is normal sacroiliac joints. There is no evidence of pelvic mass. IMPRESSION: Normal appendix. Splenomegaly unchanged. Dilated gallbladder unchanged and suggestive of gallbladder dysfunction. No dilated ducts.
[2021-02-09 19:55] LABS: Appearance,Urine Clear (Clear); Bilirubin,Urine Negative (Negative); Blood,Urine Negative (Negative); Color,Urine Yellow; Glucose,Urine (UA) Negative (Negative); Ketones,Urine Negative (Negative); Leukocyte Esterase,Urine Negative (Negative); Nitrite,Urine Negative (Negative); PH, Urine 5.5 (5.0-8.0); Protein,Urine Negative (Negative); Urobilinogen,Urine <2.0 mg/dL (<2.0)
[2021-02-09 20:53] VITALS: BP 111/74; PULSE 95; TEMP 98.1
== END 2021-02-09 20:53 | disposition home or self-care (01) ==
LOC: EC 16:11
DX: E86.0 Dehydration (principal); E11.9 Type 2 diabetes mellitus without complications; K21.9 Gastro-esophageal reflux disease without esophagitis; F17.200 Nicotine dependence, unspecified, uncomplicated; Z79.84 Long term (current) use of oral hypoglycemic drugs
CPT/HCPCS: 36415; 93005; 80053; 83605; 85025; 85610; 82272; 81003; 74177; 99285; 96374; 96361; C9113; Q9967

== ENCOUNTER → 2021-04-02 | Outpatient (CLI) | payer OTHER ==
[2021-04-02 15:22] LABS: Basophils # (A) 0.04 X 10*3/uL (0.00-0.10); Basophils % (A) 0.9 %; Eosinophils # (A) 0.13 X 10*3/uL (0.04-0.35); Eosinophils % (A) 2.9 %; HCT 39.4 % (39.6-50.0); HGB 13.2 g/dL (13.0-17.0); Lymphocytes # (A) 1.26 X 10*3/uL (0.90-5.00); Lymphocytes % (A) 27.8 %; MCH 29.3 pg (27.0-32.0); MCHC 33.5 g/dL (32.0-37.0); MCV 87.6 fL (80.0-97.0); Mean Platelet Volume 10.5 fL (9.5-12.2); Monocytes # (A) 0.25 X 10*3/uL (0.20-1.00); Monocytes % (A) 5.5 %; Neutrophils # (A) 2.85 X 10*3/uL (1.80-7.70); Neutrophils % (A) 62.7 %; Platelet Count 100 X 10*3/uL (140-440); RDW 13.5 % (11.5-14.5); WBC 4.54 X 10*3/uL (4.50-10.00)
[2021-04-02 15:44] LABS: African American GFR (CKD) 123.4 (60.0-200.0); Albumin 4.2 g/dL (3.80-4.90); Albumin/Globulin Ratio 1.35 (1.60-3.17); Anion Gap 6.6 mmol/L (4.00-12.00); BUN/Creat Ratio 13.33 Ratio (12.00-20.00); Calcium 9.1 mg/dL (8.7-10.3); Carbon Dioxide 27.4 mmol/L (21.6-31.8); Chol/HDL Ratio 6.36; Globulin 3.1 g/dL (1.6-3.3); LDL Cholesterol,Calculated 103.6 mg/dL (0.0-131.0); Non-African American GFR(CKD) 106.5 (60.0-200.0); Potassium 4.1 mmol/L (3.5-5.5); Total Bilirubin 0.7 mg/dL (0.3-1.2); Total Protein 7.3 g/dL (6.2-8.2); VLDL Calculation 30.4 mg/dL (5.00-40.00)
[2021-04-02 15:46] LABS: T4, Free (Free Thyroxine) 0.9 ng/dL (0.80-1.80)
[2021-04-02 17:39] LABS: Hemoglobin A1C 8.2 % (4.0-6.0)
== END | disposition home or self-care (01) ==
LOC: LABWHC1 09:53
PROVIDERS: ATTEND Family Medicine
DX: E11.9 Type 2 diabetes mellitus without complications (principal)
CPT/HCPCS: 36415; 80053; 80061; 83036; 84439; 84443; 85025

== ENCOUNTER → 2021-07-10 | Outpatient (CLI) | payer OTHER ==
[2021-07-10 15:04] LABS: Basophils # (A) 0.03 X 10*3/uL (0.00-0.10); Basophils % (A) 0.8 %; Eosinophils # (A) 0.09 X 10*3/uL (0.04-0.35); Eosinophils % (A) 2.5 %; HCT 41.4 % (39.6-50.0); HGB 13.7 g/dL (13.0-17.0); Lymphocytes # (A) 1.06 X 10*3/uL (0.90-5.00); Lymphocytes % (A) 28.9 %; MCH 27.8 pg (27.0-32.0); MCHC 33.1 g/dL (32.0-37.0); Mean Platelet Volume 10.2 fL (9.5-12.2); Monocytes # (A) 0.26 X 10*3/uL (0.20-1.00); Monocytes % (A) 7.1 %; Neutrophils # (A) 2.22 X 10*3/uL (1.80-7.70); Neutrophils % (A) 60.4 %; Platelet Count 100 X 10*3/uL (140-440); RBC 4.93 X 10*6/uL (4.40-5.60); RDW 12.8 % (11.5-14.5); WBC 3.67 X 10*3/uL (4.50-10.00)
[2021-07-10 18:01] LABS: African American GFR (CKD) 123.7 (60.0-200.0); Albumin 4.2 g/dL (3.8-4.9); Albumin/Globulin Ratio 1.23 (1.60-3.17); Anion Gap 13.3 mmol/L (4.00-12.00); BUN/Creat Ratio 12.42 Ratio (12.00-20.00); Blood Urea Nitrogen 11.1 mg/dL (9.0-27.0); Calcium 9.3 mg/dL (8.7-10.3); Carbon Dioxide 24.5 mmol/L (21.6-31.8); Chol/HDL Ratio 6.94 Ratio; Globulin 3.4 g/dL (1.6-3.3); HDL Cholesterol 18.6 mg/dL (40.00-60.00); LDL Cholesterol,Calculated 46.6 mg/dL (0.0-131.0); Non-African American GFR(CKD) 106.8 (60.0-200.0); Potassium 4.2 mmol/L (3.5-5.5); Total Bilirubin 1.1 mg/dL (0.30-1.20); Total Protein 7.7 g/dL (6.2-8.2); VLDL Calculation 63.8 mg/dL (5.00-40.00)
== END | disposition home or self-care (01) ==
LOC: LABWHC1 10:28
PROVIDERS: ATTEND Family Medicine
DX: E11.9 Type 2 diabetes mellitus without complications (principal)
CPT/HCPCS: 36415; 80053; 80061; 83036; 85025

== ENCOUNTER → 2021-07-27 | Outpatient (CLI) | payer OTHER ==
[2021-07-27 19:21] LABS: Basophils # (A) 0.03 X 10*3/uL (0.00-0.10); Eosinophils # (A) 0.07 X 10*3/uL (0.04-0.35); Eosinophils % (A) 2.3 %; HCT 42.8 % (39.6-50.0); HGB 13.9 g/dL (13.0-17.0); Lymphocytes # (A) 1.03 X 10*3/uL (0.90-5.00); Lymphocytes % (A) 33.8 %; MCH 28.3 pg (27.0-32.0); MCHC 32.5 g/dL (32.0-37.0); MCV 87.2 fL (80.0-97.0); Mean Platelet Volume 10.5 fL (9.5-12.2); Monocytes # (A) 0.17 X 10*3/uL (0.20-1.00); Monocytes % (A) 5.6 %; Neutrophils # (A) 1.74 X 10*3/uL (1.80-7.70); Platelet Count 99 X 10*3/uL (140-440); RBC 4.91 X 10*6/uL (4.40-5.60); RDW 13.3 % (11.5-14.5); WBC 3.05 X 10*3/uL (4.50-10.00)
[2021-07-27 19:30] LABS: Prothrombin Time 10.9 sec (9.9-11.9)
[2021-07-27 21:31] LABS: African American GFR (CKD) 129.5 (60.0-200.0); Albumin 4.3 g/dL (3.8-4.9); Albumin/Globulin Ratio 1.34 (1.60-3.17); Anion Gap 12.7 mmol/L (4.00-12.00); BUN/Creat Ratio 12.13 Ratio (12.00-20.00); Blood Urea Nitrogen 9.7 mg/dL (9.0-27.0); Calcium 9.5 mg/dL (8.7-10.3); Carbon Dioxide 23.3 mmol/L (21.6-31.8); Globulin 3.2 g/dL (1.6-3.3); Non-African American GFR(CKD) 111.7 (60.0-200.0); Potassium 4.2 mmol/L (3.5-5.5); Total Bilirubin 0.6 mg/dL (0.30-1.20); Total Protein 7.5 g/dL (6.2-8.2)
== END | disposition home or self-care (01) ==
LOC: LABWHC1 11:19
PROVIDERS: ATTEND Nurse Practitioner
DX: K74.60 Unspecified cirrhosis of liver (principal)
CPT/HCPCS: 36415; 80053; 82105; 85025; 85610

== ENCOUNTER → 2021-10-05 | Outpatient (CLI) | payer OTHER ==
[2021-10-05 21:02] LABS: ALT 61 U/L (10-49); AST 37 U/L (14-35); African American GFR (CKD) 123.4 (60.0-200.0); Albumin 4.3 g/dL (3.8-4.9); Albumin/Globulin Ratio 1.39 (1.60-3.17); Alkaline Phosphatase 82 U/L (41-126); BUN/Creat Ratio 10.78 Ratio (12.00-20.00); Blood Urea Nitrogen 9.7 mg/dL (9.0-27.0); Calcium 9.2 mg/dL (8.7-10.3); Carbon Dioxide 24.1 mmol/L (20.0-27.5); Chloride 104 mmol/L (96-109); Chol/HDL Ratio 5.21 Ratio; Globulin 3.1 g/dL (1.6-3.3); Glucose 199 mg/dL (70-110); Non-African American GFR(CKD) 106.5 (60.0-200.0); Potassium 4.4 mmol/L (3.5-5.5); Sodium 141 mmol/L (135-145); Total Protein 7.4 g/dL (6.2-8.2)
== END | disposition home or self-care (01) ==
LOC: LABWHC1 10:12
PROVIDERS: ATTEND Family Medicine
DX: E11.9 Type 2 diabetes mellitus without complications (principal)
CPT/HCPCS: 36415; 80053; 80061; 83036

== ENCOUNTER → 2022-01-04 | Outpatient (CLI) | payer OTHER ==
[2022-01-04 18:22] LABS: ALT 45 U/L (10-49); AST 41 U/L (14-35); African American GFR (CKD) 134.3 (60.0-200.0); Albumin/Globulin Ratio 1.45 (1.60-3.17); Alkaline Phosphatase 67 U/L (41-126); BUN/Creat Ratio 16.39 Ratio (12.00-20.00); Calcium 8.7 mg/dL (8.7-10.3); Carbon Dioxide 23.1 mmol/L (20.0-27.5); Chloride 109 mmol/L (96-109); Chol/HDL Ratio 3.36 Ratio; Globulin 2.8 g/dL (1.6-3.3); Glucose 140 mg/dL (70-110); Non-African American GFR(CKD) 115.9 (60.0-200.0); Potassium 4.3 mmol/L (3.5-5.5); Sodium 143 mmol/L (135-145); Total Protein 6.8 g/dL (6.2-8.2)
== END | disposition home or self-care (01) ==
LOC: LABWHC1 13:28
PROVIDERS: ATTEND Family Medicine
DX: E11.9 Type 2 diabetes mellitus without complications (principal)
CPT/HCPCS: 36415; 80053; 80061; 83036

== ENCOUNTER → 2022-03-16 | Outpatient (CLI) | payer OTHER ==
[2022-03-16 23:41] LABS: Basophils # (A) 0.02 X 10*3/uL (0.00-0.10); Basophils % (A) 0.5 %; Eosinophils # (A) 0.07 X 10*3/uL (0.04-0.35); Eosinophils % (A) 1.8 %; HCT 40.7 % (39.6-50.0); HGB 13.8 g/dL (13.0-17.0); Immature Grans, Automated 0.5 %; Lymphocytes # (A) 0.96 X 10*3/uL (0.90-5.00); Lymphocytes % (A) 24.4 %; MCH 28.8 pg (27.0-32.0); MCHC 33.9 g/dL (32.0-37.0); Mean Platelet Volume 10.4 fL (9.5-12.2); Monocytes # (A) 0.22 X 10*3/uL (0.20-1.00); Monocytes % (A) 5.6 %; NRBC Per 100 WBC 0 /100 WBCS (0.0-0.0); Neutrophils # (A) 2.65 X 10*3/uL (1.80-7.70); Neutrophils % (A) 67.2 %; Platelet Count 93 X 10*3/uL (140-440); RBC 4.79 X 10*6/uL (4.40-5.60); RDW 13.2 % (11.5-14.5); WBC 3.94 X 10*3/uL (4.50-10.00)
[2022-03-16 23:57] LABS: African American GFR (CKD) 128.6 (60.0-200.0); Albumin 4.2 g/dL (3.8-4.9); Albumin/Globulin Ratio 1.4 (1.60-3.17); BUN/Creat Ratio 13.38 Ratio (12.00-20.00); Blood Urea Nitrogen 10.7 mg/dL (9.0-27.0); Calcium 9.2 mg/dL (8.7-10.3); Potassium 3.6 mmol/L (3.5-5.5); Total Bilirubin 0.6 mg/dL (0.30-1.20); Total Protein 7.2 g/dL (6.2-8.2)
== END | disposition home or self-care (01) ==
LOC: LABWHC1 15:25
PROVIDERS: ATTEND Internal Medicine Gastroenterology
DX: K74.60 Unspecified cirrhosis of liver (principal)
CPT/HCPCS: 36415; 80053; 82105; 85025

== ENCOUNTER → 2022-03-25 | Outpatient (CLI) | payer OTHER ==
--- NOTE | 2022-03-25 09:10 | US ---
EXAMINATION TYPE: US liver DATE OF EXAM: 03/25/2022 COMPARISON: CT 2020 ultrasound 09/12/2020 CLINICAL HISTORY: K74.60 CIRRHOSIS OF LIVER. EXAM MEASUREMENTS: Liver Length: 14.0 cm Gallbladder Wall: 0.2 cm CBD: 0.4 cm Right Kidney: 10.1 x 5.9 x 6.5 cm Pancreas: obscured by overlying midline bowel gas Liver: mildly heterogeneous, scanned intercostally, limited by rib shadowing and overlying bowel gas Gallbladder: wnl Evidence for sonographic Damon's sign: no CBD: visualized portions wnl, limited by overlying bowel gas Right Kidney: wnl IMPRESSION: 1. Minimal fatty infiltration of the liver
== END | disposition home or self-care (01) ==
LOC: RADUSWWP 08:19
PROVIDERS: ATTEND Internal Medicine Gastroenterology
DX: K76.0 Fatty (change of) liver, not elsewhere classified (principal)
CPT/HCPCS: 76705

== ENCOUNTER → 2022-04-13 | Outpatient (CLI) | payer OTHER ==
[2022-04-13 18:57] LABS: Chol/HDL Ratio 4.11 Ratio; LDL Cholesterol,Calculated 82.8 mg/dL (0.0-131.0); VLDL Calculation 16.26 mg/dL (5.00-40.00)
[2022-04-13 19:09] LABS: ALT 32 U/L (10-49); AST 28 U/L (14-35); African American GFR (CKD) 123.7 (60.0-200.0); Albumin 4.5 g/dL (3.8-4.9); Albumin/Globulin Ratio 1.51 (1.60-3.17); Alkaline Phosphatase 80 U/L (41-126); BUN/Creat Ratio 13.64 Ratio (12.00-20.00); Calcium 9.3 mg/dL (8.7-10.3); Carbon Dioxide 24.3 mmol/L (20.0-27.5); Chloride 106 mmol/L (96-109); Glucose 129 mg/dL (70-110); Non-African American GFR(CKD) 106.7 (60.0-200.0); Potassium 3.9 mmol/L (3.5-5.5); Sodium 142 mmol/L (135-145); Total Protein 7.4 g/dL (6.2-8.2)
== END | disposition home or self-care (01) ==
LOC: LABWHC1 12:01
PROVIDERS: ATTEND Family Medicine
DX: E11.9 Type 2 diabetes mellitus without complications (principal)
CPT/HCPCS: 36415; 80053; 80061; 83036

== ENCOUNTER → 2022-09-10 | Outpatient (CLI) | payer OTHER ==
[2022-09-10 18:35] LABS: Basophils # (A) 0.01 X 10*3/uL (0.00-0.10); Basophils % (A) 0.3 %; Eosinophils # (A) 0.08 X 10*3/uL (0.04-0.35); Eosinophils % (A) 2.3 %; HCT 41.8 % (39.6-50.0); HGB 13.8 g/dL (13.0-17.0); Immature Grans, Automated 0.3 %; Lymphocytes # (A) 0.96 X 10*3/uL (0.90-5.00); Lymphocytes % (A) 27.6 %; MCH 28.8 pg (27.0-32.0); MCV 87.1 fL (80.0-97.0); Mean Platelet Volume 9.8 fL (9.5-12.2); Monocytes # (A) 0.25 X 10*3/uL (0.20-1.00); Monocytes % (A) 7.2 %; NRBC Per 100 WBC 0 /100 WBCS (0.0-0.0); Neutrophils # (A) 2.17 X 10*3/uL (1.80-7.70); Neutrophils % (A) 62.3 %; Platelet Count 101 X 10*3/uL (140-440); RDW 13.2 % (11.5-14.5); WBC 3.48 X 10*3/uL (4.50-10.00)
[2022-09-10 18:38] LABS: African American GFR (CKD) 107.9 (60.0-200.0); Albumin 4.4 g/dL (3.8-4.9); Albumin/Globulin Ratio 1.52 (1.60-3.17); Anion Gap 8.3 mmol/L (10.00-18.00); BUN/Creat Ratio 14.3 Ratio (12.00-20.00); Blood Urea Nitrogen 14.3 mg/dL (9.0-27.0); Calcium 9.6 mg/dL (8.7-10.3); Carbon Dioxide 28.7 mmol/L (20.0-27.5); Globulin 2.9 g/dL (1.6-3.3); Non-African American GFR(CKD) 93.1 (60.0-200.0); Potassium 4.1 mmol/L (3.5-5.5); Total Bilirubin 0.7 mg/dL (0.30-1.20); Total Protein 7.3 g/dL (6.2-8.2)
== END | disposition home or self-care (01) ==
LOC: LABWHC1 13:06
PROVIDERS: ATTEND Internal Medicine Gastroenterology
DX: K74.60 Unspecified cirrhosis of liver (principal)
CPT/HCPCS: 36415; 80053; 82105; 85025

== ENCOUNTER → 2022-09-27 | Outpatient (CLI) | payer OTHER ==
--- NOTE | 2022-09-27 11:48 | US ---
EXAMINATION TYPE: US liver DATE OF EXAM: 09/27/2022 COMPARISON: CT 02/09/2021, ultrasound 03/25/2021 CLINICAL HISTORY: K74.60 UNSPECIFIED CIRRHOSIS OF LIVER. Abnormal labs TECHNIQUE: Multiple sonographic images of the right upper quadrant are obtained. FINDINGS: EXAM MEASUREMENTS: Liver Length: 14.3 cm Gallbladder Wall: 0.2 cm CBD: 0.8 cm Right Kidney: 11.1 x 4.7 x 6.1 cm Pancreas: Head obscured by overlying bowel gas Liver: Appears coarse in appearance. There is a nodular contour present.. No focal lesions seen at time of scan. Gallbladder: wnl Evidence for sonographic Damon's sign: neg CBD: Slightly dilated Right Kidney: No hydronephrosis or masses seen IMPRESSION: Hepatic cirrhosis without evidence of suspicious mass.
== END | disposition home or self-care (01) ==
LOC: RADUSWWP 10:43
PROVIDERS: ATTEND Internal Medicine Gastroenterology
DX: K74.60 Unspecified cirrhosis of liver (principal)
CPT/HCPCS: 76705

== ENCOUNTER → 2022-09-27 | Outpatient (CLI) | payer OTHER ==
[2022-09-27 16:21] LABS: ALT 35 U/L (10-49); AST 29 U/L (14-35); African American GFR (CKD) 122.5 (60.0-200.0); Albumin 4.3 g/dL (3.8-4.9); Alkaline Phosphatase 73 U/L (41-126); BUN/Creat Ratio 12.22 Ratio (12.00-20.00); Carbon Dioxide 25.6 mmol/L (20.0-27.5); Chloride 107 mmol/L (96-109); Chol/HDL Ratio 3.93 Ratio; Globulin 3.3 g/dL (1.6-3.3); Glucose 137 mg/dL (70-110); LDL Cholesterol,Calculated 87.7 mg/dL (0.0-131.0); Non-African American GFR(CKD) 105.7 (60.0-200.0); Potassium 4.3 mmol/L (3.5-5.5); Sodium 141 mmol/L (135-145); Total Protein 7.6 g/dL (6.2-8.2)
[2022-09-27 16:54] LABS: Basophils # (A) 0.04 X 10*3/uL (0.00-0.10); Eosinophils # (A) 0.07 X 10*3/uL (0.04-0.35); Eosinophils % (A) 1.8 %; HCT 42.9 % (39.6-50.0); HGB 14.3 g/dL (13.0-17.0); Immature Grans, Automated 0.3 %; Lymphocytes # (A) 1.15 X 10*3/uL (0.90-5.00); Lymphocytes % (A) 29.9 %; MCH 29.1 pg (27.0-32.0); MCHC 33.3 g/dL (32.0-37.0); MCV 87.2 fL (80.0-97.0); Mean Platelet Volume 10.2 fL (9.5-12.2); Monocytes # (A) 0.24 X 10*3/uL (0.20-1.00); Monocytes % (A) 6.2 %; NRBC Per 100 WBC 0 /100 WBCS (0.0-0.0); Neutrophils # (A) 2.34 X 10*3/uL (1.80-7.70); Neutrophils % (A) 60.8 %; Platelet Count 100 X 10*3/uL (140-440); RBC 4.92 X 10*6/uL (4.40-5.60); RDW 13.3 % (11.5-14.5); WBC 3.85 X 10*3/uL (4.50-10.00)
== END | disposition home or self-care (01) ==
LOC: LABWHC1 11:43
PROVIDERS: ATTEND Family Medicine
DX: E11.9 Type 2 diabetes mellitus without complications (principal)
CPT/HCPCS: 36415; 80053; 80061; 83036; 85025

== ENCOUNTER → 2023-01-13 | Outpatient (CLI) | payer OTHER ==
[2023-01-13 15:43] LABS: Basophils # (A) 0.03 X 10*3/uL (0.00-0.10); Basophils % (A) 0.7 %; Eosinophils % (A) 2.5 %; HGB 14.1 g/dL (13.0-17.0); Immature Grans, Automated 0.2 %; Lymphocytes # (A) 1.23 X 10*3/uL (0.90-5.00); Lymphocytes % (A) 30.3 %; MCH 28.5 pg (27.0-32.0); MCHC 34.4 g/dL (32.0-37.0); Mean Platelet Volume 9.4 fL (9.5-12.2); Monocytes # (A) 0.36 X 10*3/uL (0.20-1.00); Monocytes % (A) 8.9 %; NRBC Per 100 WBC 0 /100 WBCS (0.0-0.0); Neutrophils # (A) 2.33 X 10*3/uL (1.80-7.70); Neutrophils % (A) 57.4 %; Platelet Count 97 X 10*3/uL (140-440); RBC 4.94 X 10*6/uL (4.40-5.60); RDW 13.5 % (11.5-14.5); WBC 4.06 X 10*3/uL (4.50-10.00)
[2023-01-13 16:05] LABS: African American GFR (CKD) 104.1 (60.0-200.0); Albumin 4.4 g/dL (3.8-4.9); Albumin/Globulin Ratio 1.42 (1.60-3.17); Anion Gap 11.9 mmol/L (10.00-18.00); BUN/Creat Ratio 13.11 Ratio (12.00-20.00); Blood Urea Nitrogen 13.5 mg/dL (9.0-27.0); Calcium 9.5 mg/dL (8.7-10.3); Carbon Dioxide 26.2 mmol/L (20.0-27.5); Globulin 3.1 g/dL (1.6-3.3); Non-African American GFR(CKD) 89.8 (60.0-200.0); Total Bilirubin 0.8 mg/dL (0.30-1.20); Total Protein 7.5 g/dL (6.2-8.2)
== END | disposition home or self-care (01) ==
LOC: LABWHC1 09:13
PROVIDERS: ATTEND Nurse Practitioner Family
DX: K74.60 Unspecified cirrhosis of liver (principal)
CPT/HCPCS: 36415; 80053; 82105; 85025

== ENCOUNTER 2023-02-25 07:47 | Day surgery (SDC) | payer OTHER ==
[~2023-02-25 07:47] MED LIST changes: -LIDOCAINE 1% (10MG/ML) FOR IV START INTRADERMA PRN
[2023-02-25 08:13] VITALS: RESP 14; TEMP 97.1
[2023-02-25 08:42] LABS: Glucose,Whole Blood 181 mg/dL (70-110)
[2023-02-25] MEDS ORDERED: LIDOCAINE 2% INJ 20 MG/ML (2 ML VIAL) ONE (08:45)
[2023-02-25] MEDS ORDERED: PROPOFOL 10 MG/ML 20 ML VIAL IV ONE (08:45)
--- NOTE | 2023-02-25 09:29 | P.PCN ---
Date of Procedure: 02/25/23 Procedure(s) Performed: Brief history: Patient is a pleasant [id number] white male scheduled for an elective upper endoscopy as well as colonoscopy as a part of evaluation of liver cirrhosis of screening for esophageal varices and intermittent rectal bleeding/abdominal pain Procedure performed: Esophagogastroduodenoscopy Colonoscopy with snare polypectomy and argon plasma coagulation and cold biopsy Preoperative diagnosis: Cirrhosis of the liver/screening for esophageal varices Lower abdominal pain and rectal bleeding Anesthesia: MAC Procedure: After informed consent was obtained from the patient was brought into the endoscopy unit and IV sedation was administered by anesthesia under continuous monitoring. Initially upper endoscopy was done. The Olympus GF 160 video endoscope was inserted inserted into the mouth and esophagus intubated without any difficulty and was gradually advanced into the stomach and duodenum and carefully examined. The bulb and second part of the duodenum appeared normal. The scope was then withdrawn into the stomach adequately insufflated with air and upon careful examination the antrum and body, changes consistent with mild portal hypertensive gastropathy. Mucosa of the cardia and fundus appeared normal. The gastric varices identified. The scope was then withdrawn into the esophagus. The GE junction was located at 40 cm to the incisors. It appeared regular with no erythema erosions or ulcerations. No esophageal varices seen. Rest of the esophagus appeared normal. Patient tolerated the procedure well. At this time the patient continued to remain sedation. Initial digital rectal examination was normal. Olympus CF 160 video colonoscope was then inserted into the rectum and gradually advanced to the cecum without any difficulty. Careful examination was performed as the scope was gradually being withdrawn. The prep was excellent. In the base of cecum there was a 3 cm broad-based polypoid lesion identified. Polypectomy was performed in a piecemeal fashion. At the polyp was mostly removed at [facility] that the polyp was involving the appendiceal orifice and part of it was inside appendiceal orifice that could not be removed completely. At this time I performed argon plasma coagulation. The erest of the cecum, ascending colon appeared normal. The transverse colon there was a 3- 4 mm polyp that was removed by cold biopsy. Rest of the, transverse colon, descending colon, sigmoid colon and rectum appeared normal. Retroflexion was performed in the rectum and no lesions were noted. Patient tolerated the procedure well. Impression: 1. Upper endoscopy revealed mild portal hypertensive gastropathy but no evidence of gastric or esophageal varices 2. Colonoscopy revealed a 3 cm broad-based polyp involving the appendiceal orifice status post piecemeal snare polypectomy followed plasma coagulation. As the polyp was involving the appendiceal orifice complete polypectomy could not be accomplished. Recommendations: Findings of this examination were discussed with the patient as well as his family. He was advised to follow with the biopsy results. He'll be seen in office in 2 weeks.. Since the polyp was involving the appendiceal orifice were discussed with the patient regarding surgical intervention. . He was advised to have a repeat upper endoscopy every 2-3 years to screen for esophageal varices
[2023-02-25 09:53] VITALS: BP 109/75; PULSE 87
== END 2023-02-25 10:22 | disposition home or self-care (01) ==
LOC: ORWHC2ENDO 07:47
PROVIDERS: ATTEND Internal Medicine Gastroenterology
DX: D12.0 Benign neoplasm of cecum (principal); D12.3 Benign neoplasm of transverse colon; K62.5 Hemorrhage of anus and rectum; K74.60 Unspecified cirrhosis of liver; K31.89 Other diseases of stomach and duodenum; K76.6 Portal hypertension; E78.5 Hyperlipidemia, unspecified; G47.33 Obstructive sleep apnea (adult) (pediatric); E11.9 Type 2 diabetes mellitus without complications; K21.9 Gastro-esophageal reflux disease without esophagitis; Z79.899 Other long term (current) drug therapy
CPT/HCPCS: 88305; 45380; 45385; 43235; J2704; J2001; 45388

== ENCOUNTER → 2023-03-22 | Outpatient (CLI) | payer OTHER ==
[2023-03-22 20:17] LABS: Basophils # (A) 0.04 X 10*3/uL (0.00-0.10); Basophils % (A) 0.9 %; Eosinophils # (A) 0.07 X 10*3/uL (0.04-0.35); Eosinophils % (A) 1.6 %; HCT 43.5 % (39.6-50.0); HGB 14.5 d/dL (12.0-15.0); Lymphocytes # (A) 1.09 X 10*3/uL (0.90-5.00); Lymphocytes % (A) 25.5 %; MCH 27.9 pg (27.0-32.0); MCHC 33.3 d/dL (32.0-37.0); MCV 83.8 FL (80.0-97.0); Mean Platelet Volume 10.4 FL (9.5-12.2); Monocytes # (A) 0.28 X 10*3/uL (0.20-1.00); Monocytes % (A) 6.6 %; NRBC Per 100 WBC 0 X 10*3/uL (0.00-0.01); Neutrophils # (A) 2.74 X 10*3/uL (1.80-7.70); Neutrophils % (A) 64.2 %; Platelet Count 100 X 10*3/uL (140-440); RBC 5.19 X 10*6/uL (4.40-5.60); RDW 13.4 % (11.5-14.5); WBC 4.27 X 10*3/uL (4.50-10.00)
[2023-03-23 05:21] LABS: Blood Urea Nitrogen 12.1 mg/dL (9.0-27.0); Carbon Dioxide 26.9 mmol/L (21.6-31.8); Chloride 102 mmol/L (96-109); Glucose 210 mg/dL (70-110); LDL Cholesterol,Calculated 116.5 mg/dL (0.0-131.0); Potassium 4.2 mmol/L (3.5-5.5); Sodium 140 mmol/L (135-145)
[2023-03-23 05:22] LABS: ALT 54 U/L (10-49); AST 44 U/L (14-35); Albumin 4.5 d/dL (3.8-4.9); Albumin/Globulin Ratio 1.45 Ratio (1.60-3.17); Alkaline Phosphatase 86 U/L (41-126); Calcium 9.4 mg/dL (8.7-10.3); Globulin 3.1 d/dL (1.6-3.3); Total Bilirubin 0.8 mg/dL (0.3-1.2); Total Protein 7.6 d/dL (6.2-8.2)
== END | disposition home or self-care (01) ==
LOC: LABWHC1 10:29
PROVIDERS: ATTEND Internal Medicine Gastroenterology
DX: E78.5 Hyperlipidemia, unspecified (principal)
CPT/HCPCS: 36415; 80053; 80061; 83036; 84443; 85025

== ENCOUNTER → 2023-03-25 | Outpatient (CLI) | payer OTHER | END | disposition home or self-care (01) | LOC: LABWHC1 09:01 | PROVIDERS: ATTEND Family Medicine | DX: Z53.9 Procedure and treatment not carried out, unspecified reason (principal) ==

== ENCOUNTER → 2023-06-20 | Outpatient (CLI) | payer OTHER ==
[2023-06-20 15:24] LABS: Basophils # (A) 0.04 X 10*3/uL (0.00-0.10); Basophils % (A) 0.9 %; Eosinophils # (A) 0.07 X 10*3/uL (0.04-0.35); Eosinophils % (A) 1.6 %; HCT 45.8 % (39.6-50.0); HGB 15.8 d/dL (13.0-17.0); Lymphocytes % (A) 25.6 %; MCH 28.8 pg (27.0-32.0); MCHC 34.5 d/dL (32.0-37.0); MCV 83.6 FL (80.0-97.0); Mean Platelet Volume 10.3 FL (9.5-12.2); NRBC Per 100 WBC 0 X 10*3/uL (0.00-0.01); Neutrophils # (A) 2.77 X 10*3/uL (1.80-7.70); Neutrophils % (A) 64.4 %; Platelet Count 107 X 10*3/uL (140-440); RBC 5.48 X 10*6/uL (4.40-5.60); RDW 13.2 % (11.5-14.5)
[2023-06-20 15:35] LABS: ALT 68 U/L (10-49); AST 43 U/L (14-35); Albumin 4.8 d/dL (3.8-4.9); Albumin/Globulin Ratio 1.45 Ratio (1.60-3.17); Alkaline Phosphatase 104 U/L (41-126); Blood Urea Nitrogen 9.8 mg/dL (9.0-27.0); Calcium 9.9 mg/dL (8.7-10.3); Carbon Dioxide 25.8 mmol/L (21.6-31.8); Chloride 101 mmol/L (96-109); Chol/HDL Ratio 5.93 Ratio; Globulin 3.3 d/dL (1.6-3.3); Glucose 340 mg/dL (70-110); LDL Cholesterol,Calculated 118.3 mg/dL (0.0-131.0); Potassium 4.3 mmol/L (3.5-5.5); Sodium 140 mmol/L (135-145); Total Bilirubin 0.7 mg/dL (0.3-1.2); Total Protein 8.1 d/dL (6.2-8.2)
== END | disposition home or self-care (01) ==
LOC: LABWHC1 10:39
PROVIDERS: ATTEND Family Medicine
DX: E11.9 Type 2 diabetes mellitus without complications (principal)
CPT/HCPCS: 36415; 80053; 80061; 82043; 82570; 83036; 84443; 85025

== ENCOUNTER → 2023-09-20 | Outpatient (CLI) | payer OTHER ==
[2023-09-20 15:10] LABS: Basophils # (A) 0.04 X 10*3/uL (0.00-0.10); Eosinophils # (A) 0.09 X 10*3/uL (0.04-0.35); Eosinophils % (A) 2.2 %; HGB 14.7 g/dL (13.0-17.0); Immature Grans, Automated 0 %; Lymphocytes # (A) 1.01 X 10*3/uL (0.90-5.00); Lymphocytes % (A) 25.1 %; MCH 28.4 pg (27.0-32.0); MCHC 34.2 g/dL (32.0-37.0); MCV 83.2 FL (80.0-97.0); Mean Platelet Volume 10.1 FL (9.5-12.2); Monocytes # (A) 0.29 X 10*3/uL (0.20-1.00); Monocytes % (A) 7.2 %; NRBC Per 100 WBC 0 X 10*3/uL (0.00-0.01); Neutrophils % (A) 64.5 %; Platelet Count 101 X 10*3/uL (140-440); RBC 5.17 X 10*6/uL (4.40-5.60); RDW 13.2 % (11.5-14.5); WBC 4.03 X 10*3/uL (4.50-10.00)
[2023-09-20 15:32] LABS: BUN/Creat Ratio 12.78 Ratio (12.00-20.00); Blood Urea Nitrogen 11.5 mg/dL (9.0-27.0); Chol/HDL Ratio 6.93 Ratio; Glucose 278 mg/dL (70-110)
[2023-09-20 15:33] LABS: ALT 66 U/L (10-49); AST 46 U/L (14-35); Albumin 4.4 g/dL (3.8-4.9); Albumin/Globulin Ratio 1.38 Ratio (1.60-3.17); Alkaline Phosphatase 95 U/L (41-126); Calcium 9.4 mg/dL (8.7-10.3); Carbon Dioxide 25.9 mmol/L (21.6-31.8); Chloride 102 mmol/L (96-109); Globulin 3.2 g/dL (1.6-3.3); LDL Cholesterol,Calculated 97.9 mg/dL (0.0-131.0); Potassium 3.9 mmol/L (3.5-5.5); Sodium 139 mmol/L (135-145); T4, Free (Free Thyroxine) 1.15 ng/dL (0.80-1.80); Total Bilirubin 0.8 mg/dL (0.3-1.2); Total Protein 7.6 g/dL (6.2-8.2)
== END | disposition home or self-care (01) ==
LOC: LABWHC1 11:18
PROVIDERS: ATTEND Family Medicine
DX: E11.69 Type 2 diabetes mellitus with other specified complication (principal)
CPT/HCPCS: 36415; 80053; 80061; 83036; 84439; 84443; 85025

== ENCOUNTER 2023-10-12 14:30 | Emergency (ER) | payer OTHER ==
--- NOTE | 2023-10-12 16:24 | ED ---
Abdominal Pain HPI - General Source: patient Mode of arrival: ambulatory Limitations: no limitations <Shae Garcia - Last Filed: 10/12/23 16:24> <Epifanio Yi - Last Filed: 10/12/23 19:25> - General Chief Complaint: Abdominal Pain Stated Complaint: Abd Pain, Diarrhea Time Seen by Provider: 10/12/23 16:24 - History of Present Illness Initial Comments: Quick note: 43 y/o male presenting with CC of diarrhea and LLQ pain Electronically signed Shae Garcia PA-C (Shae Garcia) - Related Data Home Medications Medication Instructions Recorded Confirmed Atorvastatin [Lipitor] 20 mg PO DAILY 11/23/22 02/25/23 Dulaglutide [Trulicity] 3 mg SQ WE 11/23/22 02/25/23 Glimepiride [Amaryl] 1 mg PO DAILY 11/23/22 02/25/23 metFORMIN HCL 1,000 mg PO BID 11/23/22 02/25/23 Previous Rx's Medication Instructions Recorded Dicyclomine [Bentyl] 10 mg PO TID PRN 7 Days #21 capsule 11/23/22 Allergies Allergy/AdvReac Type Severity Reaction Status Date / Time No Known Allergies Allergy Verified 10/12/23 14:54 Review of Systems ROS Other: All systems not noted in ROS Statement are negative. <Shae Garcia - Last Filed: 10/12/23 16:24> ROS Other: All systems not noted in ROS Statement are negative. <Epifanio Yi - Last Filed: 10/12/23 19:25> ROS Statement: Those systems with pertinent positive or pertinent negative responses have been documented in the HPI. Past Medical History Past Medical History: Diabetes Mellitus, GERD/Reflux, Hyperlipidemia Additional Past Medical History / Comment(s): abnormal liver function---having liver biopsy 11/18/20 History of Any Multi-Drug Resistant Organisms: None Reported Past Surgical History: No Surgical Hx Reported Additional Past Surgical History / Comment(s): recent EGD--H.pylori found and on antibiotics. Should be done before liver biopsy planned for 11/18/20 Past Anesthesia/Blood Transfusion Reactions: No Reported Reaction Additional Past Anesthesia/Blood Transfusion Reaction / Comment(s): HAS NEVER GENERAL ANESTHESIA. Past Psychological History: No Psychological Hx Reported Smoking Status: Current every day smoker Past Alcohol Use History: Rare Past Drug Use History: Marijuana - Past Family History Father Family Medical History: Liver Disease Additional Family Medical History / Comment(s): ETOH cirrhosis <Shae Garcia - Last Filed: 10/12/23 16:24> General Exam Limitations: no limitations General appearance: alert, in no apparent distress Head exam: Present: atraumatic, normocephalic Eye exam: Present: normal appearance Neck exam: Present: normal inspection Respiratory exam: Absent: respiratory distress Neurological exam: Present: alert, oriented X3 Psychiatric exam: Present: normal affect, normal mood <Shae Garcia - Last Filed: 10/12/23 16:24> Course Vital Signs 10/12/23 14:52 Temperature 98.4 F Pulse Rate 113 H Respiratory 18 Rate Blood Pressure 128/84 O2 Sat by Pulse 98 Oximetry Medical Decision Making - Lab Data Result diagrams: 10/12/23 16:33 10/12/23 16:33 <Epifanio Yi - Last Filed: 10/12/23 19:25> - Lab Data Lab Results 10/12/23 10/12/23 10/12/23 Range/Units 16:33 16:33 16:33 WBC 9.6 (3.8-10.6) k/uL RBC 5.89 (4.30-5.90) m/uL Hgb 17.5 (13.0-17.5) gm/dL Hct 49.2 (39.0-53.0) % MCV 83.6 (80.0-100.0) fL MCH 29.7 (25.0-35.0) pg MCHC 35.5 (31.0-37.0) g/dL RDW 14.2 (11.5-15.5) % Plt Count 114 L (150-450) k/uL MPV 7.7 Neutrophils % 83 % Lymphocytes % 10 % Monocytes % 5 % Eosinophils % 1 % Basophils % 0 % Neutrophils # 8.0 H (1.3-7.7) k/uL Lymphocytes # 0.9 L (1.0-4.8) k/uL Monocytes # 0.5 (0-1.0) k/uL Eosinophils # 0.1 (0-0.7) k/uL Basophils # 0.0 (0-0.2) k/uL Sodium 141 (137-145) mmol/L Potassium 4.4 (3.5-5.1) mmol/L Chloride 105 (98-107) mmol/L Carbon Dioxide 18 L (22-30) mmol/L Anion Gap 18 mmol/L BUN 15 (9-20) mg/dL Creatinine 0.81 (0.66-1.25) mg/dL Est GFR (CKD-EPI)AfAm >90 (>60 ml/min/1.73 sqM) Est GFR (CKD-EPI)NonAf >90 (>60 ml/min/1.73 sqM) Glucose 242 H (74-99) mg/dL Plasma Lactic Acid Flo (0.7-2.0) mmol/L Calcium 9.4 (8.4-10.2) mg/dL Total Bilirubin 1.8 H (0.2-1.3) mg/dL AST 63 H (17-59) U/L ALT 80 H (4-49) U/L Alkaline Phosphatase 102 (38-126) U/L Total Protein 9.4 H (6.3-8.2) g/dL Albumin 4.9 (3.5-5.0) g/dL Amylase 58 (30-110) U/L Lipase 155 (23-300) U/L Urine Color Yellow Urine Appearance Clear (Clear) Urine pH 5.5 (5.0-8.0) Ur Specific [place] 1.026 (1.001-1.035) Urine Protein 1+ H (Negative) Urine Glucose (UA) 1+ H (Negative) Urine Ketones Negative (Negative) Urine Blood Negative (Negative) Urine Nitrite Negative (Negative) Urine Bilirubin Negative (Negative) Urine Urobilinogen <2.0 (<2.0) mg/dL Ur Leukocyte Esterase Negative (Negative) Urine RBC 1 (0-5) /hpf Urine WBC 1 (0-5) /hpf Ur Squamous Epith Cells <1 (0-4) /hpf Urine Mucus Moderate H (None) /hpf 10/12/23 Range/Units 16:33 WBC (3.8-10.6) k/uL RBC (4.30-5.90) m/uL Hgb (13.0-17.5) gm/dL Hct (39.0-53.0) % MCV (80.0-100.0) fL MCH (25.0-35.0) pg MCHC (31.0-37.0) g/dL RDW (11.5-15.5) % Plt Count (150-450) k/uL MPV Neutrophils % % Lymphocytes % % Monocytes % % Eosinophils % % Basophils % % Neutrophils # (1.3-7.7) k/uL Lymphocytes # (1.0-4.8) k/uL Monocytes # (0-1.0) k/uL Eosinophils # (0-0.7) k/uL Basophils # (0-0.2) k/uL Sodium (137-145) mmol/L Potassium (3.5-5.1) mmol/L Chloride (98-107) mmol/L Carbon Dioxide (22-30) mmol/L Anion Gap mmol/L BUN (9-20) mg/dL Creatinine (0.66-1.25) mg/dL Est GFR (CKD-EPI)AfAm (>60 ml/min/1.73 sqM) Est GFR (CKD-EPI)NonAf (>60 ml/min/1.73 sqM) Glucose (74-99) mg/dL Plasma Lactic Acid Flo 1.4 (0.7-2.0) mmol/L Calcium (8.4-10.2) mg/dL Total Bilirubin (0.2-1.3) mg/dL AST (17-59) U/L ALT (4-49) U/L Alkaline Phosphatase (38-126) U/L Total Protein (6.3-8.2) g/dL Albumin (3.5-5.0) g/dL Amylase (30-110) U/L Lipase (23-300) U/L Urine Color Urine Appearance (Clear) Urine pH (5.0-8.0) Ur Specific [place] (1.001-1.035) Urine Protein (Negative) Urine Glucose (UA) (Negative) Urine Ketones (Negative) Urine Blood (Negative) Urine Nitrite (Negative) Urine Bilirubin (Negative) Urine Urobilinogen (<2.0) mg/dL Ur Leukocyte Esterase (Negative) Urine RBC (0-5) /hpf Urine WBC (0-5) /hpf Ur Squamous Epith Cells (0-4) /hpf Urine Mucus (None) /hpf Disposition <Shae Garcia - Last Filed: 10/12/23 16:24> Is patient prescribed a controlled substance at d/c from ED?: No Time of Disposition: 19:25 <Epifanio Yi - Last Filed: 10/12/23 19:25> Clinical Impression: Abdominal pain, Gastroenteritis Disposition: HOME SELF-CARE Condition: Good Instructions (If sedation given, give patient instructions): Abdominal Pain (ED), Gastroenteritis (ED) Referrals: Irvin Hernandez MD [Primary Care Provider] - 1-2 days
[2023-10-12 17:50] LABS: ALT 80 U/L (4-49); AST 63 U/L (17-59); African American GFR (CKD) >90 (>60 ml/min/1.73 sqM); Albumin 4.9 g/dL (3.5-5.0); Alkaline Phosphatase 102 U/L (38-126); Amylase 58 U/L (30-110); Anion Gap 18 mmol/L; Blood Urea Nitrogen 15 mg/dL (9-20); Calcium 9.4 mg/dL (8.4-10.2); Carbon Dioxide 18 mmol/L (22-30); Chloride 105 mmol/L (98-107); Glucose 242 mg/dL (74-99); Lipase 155 U/L (23-300); Non-African American GFR(CKD) >90 (>60 ml/min/1.73 sqM); Potassium 4.4 mmol/L (3.5-5.1); Sodium 141 mmol/L (137-145); Total Bilirubin 1.8 mg/dL (0.2-1.3); Total Protein 9.4 g/dL (6.3-8.2)
[2023-10-12 18:04] LABS: Basophils % (A) 0 %; Eosinophils # (A) 0.1 k/uL (0-0.7); Eosinophils % (A) 1 %; HCT 49.2 % (39.0-53.0); HGB 17.5 gm/dL (13.0-17.5); Lymphocytes # (A) 0.9 k/uL (1.0-4.8); Lymphocytes % (A) 10 %; MCH 29.7 pg (25.0-35.0); MCHC 35.5 g/dL (31.0-37.0); MCV 83.6 fL (80.0-100.0); Mean Platelet Volume 7.7; Monocytes # (A) 0.5 k/uL (0-1.0); Monocytes % (A) 5 %; Neutrophils % (A) 83 %; Platelet Count 114 k/uL (150-450); RBC 5.89 m/uL (4.30-5.90); RDW 14.2 % (11.5-15.5); WBC 9.6 k/uL (3.8-10.6)
[2023-10-12 18:11] LABS: Appearance,Urine Clear (Clear); Bilirubin,Urine Negative (Negative); Blood,Urine Negative (Negative); Color,Urine Yellow; Glucose,Urine (UA) 1+ (Negative); Ketones,Urine Negative (Negative); Leukocyte Esterase,Urine Negative (Negative); Mucus,Urine Moderate /hpf; Nitrite,Urine Negative (Negative); PH, Urine 5.5 (5.0-8.0); Protein,Urine 1+ (Negative); RBC,Urine 1 /hpf (0-5); Specific Gravity,Urine 1.026 (1.001-1.035); Squamous Epithelial Cell,Urine <1 /hpf (0-4); Urobilinogen,Urine <2.0 mg/dL (<2.0); WBC,Urine 1 /hpf (0-5)
--- NOTE | 2023-10-12 18:30 | CT ---
EXAMINATION TYPE: CT abdomen pelvis w con CT DLP: 1640.1 mGycm, Automated exposure control for dose reduction was used. DATE OF EXAM: 10/12/2023 6:08 PM COMPARISON: CT abdomen pelvis most recent from 11/23/2022. CLINICAL INDICATION:Male, 43 years old with history of abdominal pain; Abdominal pain and diarrhea x2 days. TECHNIQUE: Axial CT abdomen pelvis w con;Sagittal and coronal reformats were created on a separate w orkstation. Contrast used:100 ml mL of Isovue 300 with IV Contrast, (none if empty) Oral contrast used: without Oral Contrast (none if empty) FINDINGS: LOWER CHEST: Unremarkable ABDOMEN LIVER: Unremarkable GALLBLADDER AND BILE DUCTS: Unremarkable. PANCREAS: Unremarkable. SPLEEN: Unremarkable. ADRENAL GLANDS: Unremarkable. KIDNEYS AND URETERS: No evidence of hydronephrosis or renal calculus. The ureters are unremarkable. PELVIS BLADDER: Unremarkable REPRODUCTIVE: Unremarkable. ABDOMEN & PELVIS STOMACH AND BOWEL: No evidence of bowel obstruction. Appendix may be surgically absent. PERITONEUM/RETROPERITONEUM: No evidence of pneumoperitoneum or free fluid. VASCULATURE: No evidence of aortic aneurysm. MUSCULOSKELETAL: No acute osseous abnormalities. Mild disc degeneration changes are present throughou t the thoracolumbar spine. LYMPH NODES: No gross evidence for lymphadenopathy. SOFT TISSUE/ABDOMINAL WALL: Fat-containing umbilical hernia. Bilateral fat-containing inguinal hernia s. IMPRESSION: 1. No evidence for acute abdominal process. 2. Fat-containing inguinal hernias and umbilical hernia.
[2023-10-12] MEDS ORDERED: ONDANSETRON 4 MG ODT STARTER PACK 2 TAB BTL PO STA (19:24)
[2023-10-12] MEDS ORDERED: SODIUM CHLORIDE 0.9% 2,000 ML IV STA (19:24)
[2023-10-12] MEDS ORDERED: DIPHENOX-ATROP STARTER PACK 8 TAB BTL PO STA (19:24)
[2023-10-12] MEDS ORDERED: KETOROLAC 15 MG/ML 1 ML VIAL IVP STA (19:24)
[2023-10-12] MEDS ORDERED: ONDANSETRON 4 MG/2 ML VIAL IVP STA (19:24)
[2023-10-12 20:30] VITALS: BP 127/68; PULSE 89; RESP 16; TEMP 98.1
== END 2023-10-12 20:22 | disposition home or self-care (01) ==
LOC: EC 14:30
DX: K52.9 Noninfective gastroenteritis and colitis, unspecified (principal); E11.9 Type 2 diabetes mellitus without complications; E78.5 Hyperlipidemia, unspecified; F17.200 Nicotine dependence, unspecified, uncomplicated; F12.90 Cannabis use, unspecified, uncomplicated; Z79.84 Long term (current) use of oral hypoglycemic drugs; Z79.899 Other long term (current) drug therapy
CPT/HCPCS: 36415; 80053; 82150; 83605; 83690; 85025; 81001; 74177; 99284; 96374; 96375; 96361; J2405; J1885; S0119; Q9967

== ENCOUNTER → 2023-12-19 | Outpatient (CLI) | payer OTHER ==
[2023-12-19 16:34] LABS: ALT 45 U/L (10-49); AST 38 U/L (14-35); Albumin 4.1 g/dL (3.8-4.9); Albumin/Globulin Ratio 1.21 Ratio (1.60-3.17); Alkaline Phosphatase 95 U/L (41-126); BUN/Creat Ratio 12.75 Ratio (12.00-20.00); Blood Urea Nitrogen 10.2 mg/dL (9.0-27.0); Carbon Dioxide 24.7 mmol/L (21.6-31.8); Chloride 102 mmol/L (96-109); Chol/HDL Ratio 7.17 Ratio; Globulin 3.4 g/dL (1.6-3.3); Glucose 244 mg/dL (70-110); LDL Cholesterol,Calculated 98.5 mg/dL (0.0-131.0); Potassium 3.8 mmol/L (3.5-5.5); Sodium 138 mmol/L (135-145); Total Bilirubin 0.9 mg/dL (0.3-1.2); Total Protein 7.5 g/dL (6.2-8.2)
[2023-12-21 00:43] LABS: HIV 2 AB Non-Reactive (Non-Reactive); HIV AB P24 Non-Reactive (Non-Reactive); HIV P24 AG Non-Reactive (Non-Reactive)
== END | disposition home or self-care (01) ==
LOC: LABWHC1 08:24
PROVIDERS: ATTEND Nurse Practitioner Family
DX: Z12.5 Encounter for screening for malignant neoplasm of prostate (principal); E78.5 Hyperlipidemia, unspecified; E11.65 Type 2 diabetes mellitus with hyperglycemia
CPT/HCPCS: 36415; 80053; 80061; 82043; 82306; 82570; 83036; 84153; 84443; 87390

== ENCOUNTER → 2023-12-21 | Outpatient (CLI) | payer OTHER ==
[2023-12-21 16:59] LABS: Basophils # (A) 0.02 X 10*3/uL (0.00-0.10); Basophils % (A) 0.7 %; Eosinophils # (A) 0.06 X 10*3/uL (0.04-0.35); HCT 41.1 % (39.6-50.0); Immature Grans, Automated 0 %; Lymphocytes # (A) 0.71 X 10*3/uL (0.90-5.00); Lymphocytes % (A) 23.8 %; MCH 28.6 pg (27.0-32.0); MCHC 34.1 g/dL (32.0-37.0); Mean Platelet Volume 10.5 FL (9.5-12.2); Monocytes # (A) 0.23 X 10*3/uL (0.20-1.00); Monocytes % (A) 7.7 %; NRBC Per 100 WBC 0 X 10*3/uL (0.00-0.01); Neutrophils # (A) 1.96 X 10*3/uL (1.80-7.70); Neutrophils % (A) 65.8 %; Platelet Count 88 X 10*3/uL (140-440); RBC 4.89 X 10*6/uL (4.40-5.60); RDW 13.5 % (11.5-14.5); WBC 2.98 X 10*3/uL (4.50-10.00)
[2023-12-21 18:18] LABS: HIV 2 AB Non-Reactive (Non-Reactive); HIV AB P24 Non-Reactive (Non-Reactive); HIV P24 AG Non-Reactive (Non-Reactive)
== END | disposition home or self-care (01) ==
LOC: LABWHC1 08:55
PROVIDERS: ATTEND Family Medicine
DX: Z11.4 Encounter for screening for human immunodeficiency virus [HIV] (principal)
CPT/HCPCS: 36415; 85025; 87390

== ENCOUNTER → 2024-01-06 | Outpatient (CLI) | payer OTHER ==
[2024-01-06 18:47] LABS: Basophils # (A) 0.04 X 10*3/uL (0.00-0.10); Basophils % (A) 0.9 %; Eosinophils # (A) 0.08 X 10*3/uL (0.04-0.35); Eosinophils % (A) 1.8 %; HCT 45.7 % (39.6-50.0); HGB 15.6 g/dL (13.0-17.0); Lymphocytes # (A) 1.23 X 10*3/uL (0.90-5.00); Lymphocytes % (A) 27.5 %; MCH 28.6 pg (27.0-32.0); MCHC 34.1 g/dL (32.0-37.0); MCV 83.9 FL (80.0-97.0); Mean Platelet Volume 10.5 FL (9.5-12.2); Monocytes # (A) 0.31 X 10*3/uL (0.20-1.00); Monocytes % (A) 6.9 %; NRBC Per 100 WBC 0 X 10*3/uL (0.00-0.01); Neutrophils % (A) 62.7 %; Platelet Count 108 X 10*3/uL (140-440); RBC 5.45 X 10*6/uL (4.40-5.60); RDW 13.2 % (11.5-14.5); WBC 4.47 X 10*3/uL (4.50-10.00)
[2024-01-06 20:00] LABS: Iron 63 UG/DL (65-175); Rheumatoid Factor, Qnt <15 IU/mL (0-15); Total Iron Binding Capacity 360 UG/DL (228-460)
== END | disposition home or self-care (01) ==
LOC: LABWHC1 15:09
PROVIDERS: ATTEND Family Medicine
DX: D72.819 Decreased white blood cell count, unspecified (principal); R53.83 Other fatigue
CPT/HCPCS: 36415; 82607; 82728; 82746; 83540; 83550; 85025; 86038; 86431

== ENCOUNTER → 2024-01-16 | Outpatient (CLI) | payer OTHER ==
[2024-01-16 20:03] LABS: Basophils # (A) 0.02 X 10*3/uL (0.00-0.10); Basophils % (A) 0.6 %; Eosinophils # (A) 0.07 X 10*3/uL (0.04-0.35); Eosinophils % (A) 2.2 %; HCT 43.5 % (39.6-50.0); HGB 14.5 g/dL (13.0-17.0); Lymphocytes # (A) 0.85 X 10*3/uL (0.90-5.00); Lymphocytes % (A) 26.8 %; MCH 28.9 pg (27.0-32.0); MCHC 33.3 g/dL (32.0-37.0); MCV 86.8 FL (80.0-97.0); Mean Platelet Volume 10.8 FL (9.5-12.2); Monocytes # (A) 0.21 X 10*3/uL (0.20-1.00); Monocytes % (A) 6.6 %; NRBC Per 100 WBC 0 X 10*3/uL (0.00-0.01); Neutrophils # (A) 2.01 X 10*3/uL (1.80-7.70); Neutrophils % (A) 63.5 %; Platelet Count 90 X 10*3/uL (140-440); RBC 5.01 X 10*6/uL (4.40-5.60); RDW 13.5 % (11.5-14.5); WBC 3.17 X 10*3/uL (4.50-10.00)
[2024-01-16 22:40] LABS: EBV-EA (IgG) <0.2 AI; EBV-EBNA(IgG) >8.0; EBV-VCA (IgG) >8.0 AI; EBV-VCA (IgM) <0.2 AI
== END | disposition home or self-care (01) ==
LOC: LABWHC1 13:39
PROVIDERS: ATTEND Family Medicine
DX: D72.819 Decreased white blood cell count, unspecified (principal); R53.81 Other malaise
CPT/HCPCS: 36415; 82105; 85025; 86618; 86663; 86664; 86665

== ENCOUNTER → 2024-03-19 | Outpatient (CLI) | payer OTHER ==
[2024-03-19 19:19] LABS: Basophils # (A) 0.03 X 10*3/uL (0.00-0.10); Basophils % (A) 0.7 %; Eosinophils # (A) 0.09 X 10*3/uL (0.04-0.35); Eosinophils % (A) 2.2 %; HCT 45.4 % (39.6-50.0); HGB 14.8 g/dL (13.0-17.0); Lymphocytes # (A) 1.14 X 10*3/uL (0.90-5.00); Lymphocytes % (A) 27.5 %; MCH 28.6 pg (27.0-32.0); MCHC 32.6 g/dL (32.0-37.0); MCV 87.6 FL (80.0-97.0); Mean Platelet Volume 10.7 FL (9.5-12.2); Monocytes # (A) 0.26 X 10*3/uL (0.20-1.00); Monocytes % (A) 6.3 %; NRBC Per 100 WBC 0 X 10*3/uL (0.00-0.01); Neutrophils # (A) 2.62 X 10*3/uL (1.80-7.70); Neutrophils % (A) 63.1 %; Platelet Count 102 X 10*3/uL (140-440); RBC 5.18 X 10*6/uL (4.40-5.60); RDW 13.6 % (11.5-14.5); WBC 4.15 X 10*3/uL (4.50-10.00)
[2024-03-19 19:39] LABS: ALT 84 U/L (10-49); AST 85 U/L (14-35); Albumin 4.3 g/dL (3.8-4.9); Albumin/Globulin Ratio 1.23 Ratio (1.60-3.17); Alkaline Phosphatase 99 U/L (41-126); BUN/Creat Ratio 13.11 Ratio (12.00-20.00); Blood Urea Nitrogen 11.8 mg/dL (9.0-27.0); Calcium 9.3 mg/dL (8.7-10.3); Carbon Dioxide 25.2 mmol/L (21.6-31.8); Chloride 102 mmol/L (96-109); Chol/HDL Ratio 7.74 Ratio; Globulin 3.5 g/dL (1.6-3.3); Glucose 184 mg/dL (70-110); LDL Cholesterol,Calculated 127.4 mg/dL (0.0-131.0); Potassium 3.9 mmol/L (3.5-5.5); Sodium 138 mmol/L (135-145); Total Bilirubin 1.1 mg/dL (0.3-1.2); Total Protein 7.8 g/dL (6.2-8.2)
[2024-03-19 21:05] LABS: Microalbumin Creatinine Ratio <8 mg/g Cr (0-30)
== END | disposition home or self-care (01) ==
LOC: LABWHC1 13:11
PROVIDERS: ATTEND Internal Medicine Gastroenterology
DX: E11.65 Type 2 diabetes mellitus with hyperglycemia (principal)
CPT/HCPCS: 36415; 80053; 80061; 82043; 82570; 83036; 85025

== ENCOUNTER 2024-04-07 01:29 | Emergency (ER) | payer OTHER ==
[2024-04-07 02:10] LABS: Appearance,Urine Clear (Clear); Bilirubin,Urine Negative (Negative); Blood,Urine Negative (Negative); Color,Urine Yellow; Glucose,Urine (UA) Negative (Negative); Ketones,Urine Negative (Negative); Leukocyte Esterase,Urine Negative (Negative); Nitrite,Urine Negative (Negative); Protein,Urine Trace (Negative); Specific Gravity,Urine 1.022 (1.001-1.035)
--- NOTE | 2024-04-07 02:11 | ED ---
General Adult HPI - General Chief complaint: Urogenital Stated complaint: Leg Pain Time Seen by Provider: 04/07/24 01:38 Source: patient, RN notes reviewed, old records reviewed Mode of arrival: ambulatory Limitations: no limitations - History of Present Illness Initial comments: 44-year-old male pain on the dorsum of his penis. Has been present for the past 2 days. Patient believes that he injured this on a toilet seat. He does have pain with urination. No fever. No vomiting. Testicular or scrotal pain. No rash. No discharge. States he has had an erection since the injury without any deformity noted. - Related Data Home Medications Medication Instructions Recorded Confirmed Atorvastatin [Lipitor] 20 mg PO DAILY 11/23/22 02/25/23 Dulaglutide [Trulicity] 3 mg SQ WE 11/23/22 02/25/23 Glimepiride [Amaryl] 1 mg PO DAILY 11/23/22 02/25/23 metFORMIN HCL 1,000 mg PO BID 11/23/22 02/25/23 Previous Rx's Medication Instructions Recorded Dicyclomine [Bentyl] 10 mg PO TID PRN 7 Days #21 capsule 11/23/22 Allergies Allergy/AdvReac Type Severity Reaction Status Date / Time No Known Allergies Allergy Verified 04/07/24 01:31 Review of Systems ROS Statement: Those systems with pertinent positive or pertinent negative responses have been documented in the HPI. ROS Other: All systems not noted in ROS Statement are negative. Past Medical History Past Medical History: Diabetes Mellitus, GERD/Reflux, Hyperlipidemia Additional Past Medical History / Comment(s): abnormal liver function---having liver biopsy 11/18/20 History of Any Multi-Drug Resistant Organisms: None Reported Past Surgical History: Appendectomy Additional Past Surgical History / Comment(s): recent EGD--H.pylori found and on antibiotics. Should be done before liver biopsy planned for 11/18/20. penile surg at the age of 5 (unsure what was the procedure was). Past Anesthesia/Blood Transfusion Reactions: No Reported Reaction Additional Past Anesthesia/Blood Transfusion Reaction / Comment(s): HAS NEVER GENERAL ANESTHESIA. Past Psychological History: Anxiety Smoking Status: Vaper Past Alcohol Use History: Rare Past Drug Use History: None Reported - Past Family History Father Family Medical History: Liver Disease Additional Family Medical History / Comment(s): ETOH cirrhosis General Exam Limitations: no limitations General appearance: alert, in no apparent distress Head exam: Present: atraumatic, normocephalic Eye exam: Present: normal appearance, PERRL ENT exam: Present: normal exam Neck exam: Present: normal inspection. Absent: tenderness, meningismus Respiratory exam: Present: normal lung sounds bilaterally. Absent: respiratory distress, wheezes Cardiovascular Exam: Present: regular rate, normal rhythm GI/Abdominal exam: Present: soft. Absent: distended, tenderness, guarding exam: Present: normal inspection. Absent: urethral discharge, scrotal swelling Extremities exam: Present: normal inspection, normal capillary refill Course Vital Signs 04/07/24 01:31 Temperature 98.2 F Pulse Rate 85 Respiratory 20 Rate Blood Pressure 114/76 O2 Sat by Pulse 98 Oximetry Medical Decision Making - Medical Decision Making Was pt. sent in by a medical professional or institution ([facility] Moreno, [employer]LE [employer], urgent care, hospital, or residential...) When possible be specific @ -No Did you speak to anyone other than the patient for history (EMS, parent, family, police, friend...)? What history was obtained from this source @ -No Did you review nursing and triage notes (agree or disagree)? Why? @ -I reviewed and agree with nursing and triage notes Were old charts reviewed (outside hosp., previous admission, EMS record, old EKG, old radiological studies, urgent care reports/EKG's, residential records)? Report findings @ -No old charts were reviewed Differential Diagnosis traumatic injury to the penis. Referred pain from renal colic, urinary tract infection, STD EKG interpreted by me (3pts min.). @ -As above X-rays interpreted by me (1pt min.). @ -None done CT interpreted by me (1pt min.). @ -None done U/S interpreted by me (1pt. min.). @ -None done What testing was considered but not performed or refused? (CT, X-rays, U/S, labs)? Why? @ -None What meds were considered but not given or refused? Why? @ -None Did you discuss the management of the patient with other professionals (professionals i.e. IMANI Moreno, TILE GRADER, lab, RT, psych nurse, psychiatric social worker, wildland firefighter, teacher, supervisory cbp officer, shelter case manager)? Give summary @ -No Was smoking cessation discussed for >3mins.? @ -No Was critical care preformed (if so, how long)? @ -No Were there social determinants of health that impacted care today? How? (Homelessness, low income, unemployed, alcoholism, drug addiction, transportation, low edu. Level, literacy, decrease access to med. care, fci, rehab)? @ -No Was there de-escalation of care discussed even if they declined (Discuss DNR or withdrawal of care, Hospice)? DNR status @ -No What co-morbidities impacted this encounter? (DM, HTN, Smoking, COPD, CAD, Cancer, CVA, ARF, Chemo, Hep., AIDS, mental health diagnosis, sleep apnea, morbid obesity)? @ -None Was patient admitted / discharged? Hospital course, mention meds given and route, prescriptions, significant lab abnormalities, going to OR and other pertinent info. @44-year-old male with pain at the dorsum of the penis. Mild tenderness to palpation without external signs of trauma. No scrotal pain or swelling. Urinalysis is unremarkable. Patient will take Tylenol Motrin and follow-up with urology if symptoms persist. Undiagnosed new problem with uncertain prognosis? @ -No Drug Therapy requiring intensive monitoring for toxicity (Heparin, Nitro, Insulin, Cardizem)? @ -No Were any procedures done? @ -No Diagnosis/symptom? @ -Penile pain Acute, or Chronic, or Acute on Chronic? @Acute Uncomplicated (without systemic symptoms) or Complicated (systemic symptoms)? @ -Default Side effects of treatment? @ -No Exacerbation, Progression, or Severe Exacerbation? @ -No Poses a threat to life or bodily function? How? (Chest pain, [place], [place], pneumonia, PE, COPD, DKA, ARF, appy, cholecystitis, CVA, Diverticulitis, Homicidal, Suicidal, threat to staff... and all critical care pts) @ -No - Lab Data Lab Results 04/07/24 Range/Units 01:57 Urine Color Yellow Urine Appearance Clear (Clear) Urine pH 6.0 (5.0-8.0) Ur Specific [place] 1.022 (1.001-1.035) Urine Protein Trace H (Negative) Urine Glucose (UA) Negative (Negative) Urine Ketones Negative (Negative) Urine Blood Negative (Negative) Urine Nitrite Negative (Negative) Urine Bilirubin Negative (Negative) Urine Urobilinogen 2.0 (<2.0) mg/dL Ur Leukocyte Esterase Negative (Negative) Disposition Clinical Impression: Penile pain Disposition: HOME SELF-CARE Condition: Fair Instructions (If sedation given, give patient instructions): Dysuria (ED) Is patient prescribed a controlled substance at d/c from ED?: No Referrals: Irvin Hernandez MD [Primary Care Provider] - 1-2 days Greg Pate MD [STAFF PHYSICIAN] - 1-2 days Time of Disposition: 02:13
[2024-04-07 02:27] VITALS: BP 108/70; PULSE 90; RESP 16; TEMP 97.9
== END 2024-04-07 02:26 | disposition home or self-care (01) ==
LOC: EC 01:29
DX: N48.89 Other specified disorders of penis (principal); F17.290 Nicotine dependence, other tobacco product, uncomplicated
CPT/HCPCS: 81003; 99283

== ENCOUNTER → 2024-06-05 | Outpatient (CLI) | payer OTHER ==
[2024-06-05 19:06] LABS: Basophils # (A) 0.03 X 10*3/uL (0.00-0.10); Basophils % (A) 0.7 %; Eosinophils # (A) 0.11 X 10*3/uL (0.04-0.35); Eosinophils % (A) 2.6 %; HCT 42.2 % (39.6-50.0); HGB 14.5 g/dL (13.0-17.0); Lymphocytes # (A) 1.04 X 10*3/uL (0.90-5.00); Lymphocytes % (A) 24.9 %; MCH 29.9 pg (27.0-32.0); MCHC 34.4 g/dL (32.0-37.0); Mean Platelet Volume 10.2 FL (9.5-12.2); Monocytes # (A) 0.32 X 10*3/uL (0.20-1.00); Monocytes % (A) 7.7 %; NRBC Per 100 WBC 0 X 10*3/uL (0.00-0.01); Neutrophils # (A) 2.67 X 10*3/uL (1.80-7.70); Neutrophils % (A) 63.9 %; Platelet Count 93 X 10*3/uL (140-440); RBC 4.85 X 10*6/uL (4.40-5.60); RDW 13.4 % (11.5-14.5); WBC 4.18 X 10*3/uL (4.50-10.00)
[2024-06-05 21:05] LABS: BUN/Creat Ratio 9.67 Ratio (12.00-20.00); Blood Urea Nitrogen 8.7 mg/dL (9.0-27.0); Carbon Dioxide 24.7 mmol/L (21.6-31.8); Chloride 104 mmol/L (96-109); Glucose 209 mg/dL (70-110); Sodium 140 mmol/L (135-145)
[2024-06-05 21:06] LABS: ALT 59 U/L (10-49); AST 49 U/L (14-35); Albumin 4.3 g/dL (3.8-4.9); Albumin/Globulin Ratio 1.39 Ratio (1.60-3.17); Alkaline Phosphatase 100 U/L (41-126); Calcium 9.3 mg/dL (8.7-10.3); Globulin 3.1 g/dL (1.6-3.3); Total Bilirubin 0.7 mg/dL (0.3-1.2); Total Protein 7.4 g/dL (6.2-8.2)
== END | disposition home or self-care (01) ==
LOC: LABWHC1 15:33
PROVIDERS: ATTEND Internal Medicine Gastroenterology
DX: K74.60 Unspecified cirrhosis of liver (principal)
CPT/HCPCS: 36415; 80053; 82105; 85025

== ENCOUNTER → 2024-06-15 | Outpatient (CLI) | payer OTHER ==
[2024-06-15 19:04] LABS: Basophils # (A) 0.03 X 10*3/uL (0.00-0.10); Basophils % (A) 0.7 %; Eosinophils # (A) 0.08 X 10*3/uL (0.04-0.35); Eosinophils % (A) 1.9 %; HCT 41.3 % (39.6-50.0); HGB 14.4 g/dL (13.0-17.0); Lymphocytes # (A) 1.08 X 10*3/uL (0.90-5.00); Lymphocytes % (A) 26.1 %; MCH 29.4 pg (27.0-32.0); MCHC 34.9 g/dL (32.0-37.0); MCV 84.5 FL (80.0-97.0); Monocytes # (A) 0.32 X 10*3/uL (0.20-1.00); Monocytes % (A) 7.7 %; NRBC Per 100 WBC 0 X 10*3/uL (0.00-0.01); Neutrophils # (A) 2.62 X 10*3/uL (1.80-7.70); Neutrophils % (A) 63.4 %; Platelet Count 102 X 10*3/uL (140-440); RBC 4.89 X 10*6/uL (4.40-5.60); RDW 13.2 % (11.5-14.5); WBC 4.14 X 10*3/uL (4.50-10.00)
[2024-06-15 20:36] LABS: ALT 52 U/L (10-49); AST 40 U/L (14-35); Albumin 4.2 g/dL (3.8-4.9); Albumin/Globulin Ratio 1.35 Ratio (1.60-3.17); Alkaline Phosphatase 96 U/L (41-126); BUN/Creat Ratio 12.22 Ratio (12.00-20.00); Calcium 9.4 mg/dL (8.7-10.3); Carbon Dioxide 24.2 mmol/L (21.6-31.8); Chloride 104 mmol/L (96-109); Chol/HDL Ratio 4.01 Ratio; Globulin 3.1 g/dL (1.6-3.3); Glucose 116 mg/dL (70-110); LDL Cholesterol,Calculated 61.9 mg/dL (0.0-131.0); Potassium 4.1 mmol/L (3.5-5.5); Sodium 140 mmol/L (135-145); Total Bilirubin 0.9 mg/dL (0.3-1.2); Total Protein 7.3 g/dL (6.2-8.2); VLDL Calculation 15.42 mg/dL (5.00-40.00)
== END | disposition home or self-care (01) ==
LOC: LABWHC1 14:42
PROVIDERS: ATTEND Family Medicine
DX: E11.65 Type 2 diabetes mellitus with hyperglycemia (principal)
CPT/HCPCS: 36415; 80053; 80061; 83036; 85025

== ENCOUNTER 2024-07-23 22:43 | Emergency (ER) | payer OTHER ==
[2024-07-23 23:03] VITALS: RESP 18; TEMP 98.4
[2024-07-23 23:06] LABS: Glucose,Whole Blood 263 mg/dL (70-110)
[2024-07-24] MEDS: IBUPROFEN 400 MG TAB PO STA (00:14)
[2024-07-24] MEDS: SODIUM CHLORIDE 0.9% 2,000 ML IV ONE (00:17)
[2024-07-24] MEDS: INSULIN REGULAR 100 UNIT/ML VIAL (IV) IV STA (00:17)
[2024-07-24 00:18] LABS: Basophils % (A) 1 %; Eosinophils # (A) 0.1 k/uL (0-0.7); Eosinophils % (A) 3 %; HCT 41.7 % (39.0-53.0); Lymphocytes % (A) 25 %; MCH 29.7 pg (25.0-35.0); MCHC 33.6 g/dL (31.0-37.0); MCV 88.4 fL (80.0-100.0); Mean Platelet Volume 7.4; Monocytes # (A) 0.2 k/uL (0-1.0); Monocytes % (A) 5 %; Neutrophils # (A) 2.5 k/uL (1.3-7.7); Neutrophils % (A) 66 %; RBC 4.72 m/uL (4.30-5.90); RDW 13.5 % (11.5-15.5); WBC 3.9 k/uL (3.8-10.6)
[2024-07-24] MEDS: ACETAMINOPHEN TAB 325 MG TAB PO STA (00:19)
[2024-07-24 00:43] LABS: Glucose,Whole Blood 168 mg/dL (70-110)
[2024-07-24 00:55] LABS: ALT 53 U/L (4-49); AST 52 U/L (17-59); African American GFR (CKD) >90 (>60 ml/min/1.73 sqM); Alkaline Phosphatase 84 U/L (38-126); Anion Gap 9 mmol/L; Blood Urea Nitrogen 8 mg/dL (9-20); Calcium 8.9 mg/dL (8.4-10.2); Carbon Dioxide 26 mmol/L (22-30); Chloride 104 mmol/L (98-107); Glucose 217 mg/dL (74-99); Non-African American GFR(CKD) >90 (>60 ml/min/1.73 sqM); Potassium 3.7 mmol/L (3.5-5.1); Sodium 139 mmol/L (137-145); Total Protein 7.3 g/dL (6.3-8.2)
[2024-07-24 01:15] LABS: Platelet Count 92 k/uL (150-450); Tear Drop Cells Present
[2024-07-24 01:30] LABS: Glucose,Whole Blood 135 mg/dL (70-110)
[2024-07-24 01:35] VITALS: BP 113/70; PULSE 79
--- NOTE | 2024-07-24 01:42 | ED ---
Headache HPI - General Chief Complaint: Headache Stated Complaint: abnormal labs Time Seen by Provider: 07/23/24 23:41 Mode of arrival: ambulatory Limitations: no limitations - History of Present Illness Initial Comments: Patient is 44-year-old man with temporal headache. Patient states headache occurred without exertion. No thunderclap headache. No neck pain or stiffness. No neurologic signs MD Complaint: headache -: hour(s) Onset Description: gradual Location: temporal Severity: moderate Quality: aching Consistency: constant Improves With: nothing Worsens With: none Context: occurred at rest Treatments Prior to Arrival: none - Related Data Home Medications Medication Instructions Recorded Confirmed Atorvastatin [Lipitor] 20 mg PO DAILY 11/23/22 02/25/23 Dulaglutide [Trulicity] 3 mg SQ WE 11/23/22 02/25/23 Glimepiride [Amaryl] 1 mg PO DAILY 11/23/22 02/25/23 metFORMIN HCL 1,000 mg PO BID 11/23/22 02/25/23 Previous Rx's Medication Instructions Recorded Dicyclomine [Bentyl] 10 mg PO TID PRN 7 Days #21 capsule 11/23/22 Allergies Allergy/AdvReac Type Severity Reaction Status Date / Time No Known Allergies Allergy Verified 07/23/24 23:04 Review of Systems ROS Statement: Those systems with pertinent positive or pertinent negative responses have been documented in the HPI. ROS Other: All systems not noted in ROS Statement are negative. Constitutional: Denies: fever, chills, weakness Eyes: Denies: eye pain, vision change Respiratory: Denies: cough, dyspnea Cardiovascular: Denies: chest pain Gastrointestinal: Denies: abdominal pain, nausea, vomiting Musculoskeletal: Denies: back pain Skin: Denies: rash Neurological: Reports: headache. Denies: weakness, numbness, confusion, vertigo Past Medical History Past Medical History: Diabetes Mellitus, GERD/Reflux, Hyperlipidemia Additional Past Medical History / Comment(s): abnormal liver function---having liver biopsy 11/18/20 History of Any Multi-Drug Resistant Organisms: None Reported Past Surgical History: Appendectomy Additional Past Surgical History / Comment(s): recent EGD--H.pylori found and on antibiotics. Should be done before liver biopsy planned for 11/18/20. penile surg at the age of 5 (unsure what was the procedure was). Past Anesthesia/Blood Transfusion Reactions: No Reported Reaction Additional Past Anesthesia/Blood Transfusion Reaction / Comment(s): HAS NEVER GENERAL ANESTHESIA. Past Psychological History: Anxiety Smoking Status: Vaper Past Alcohol Use History: Rare Past Drug Use History: None Reported - Past Family History Father Family Medical History: Liver Disease Additional Family Medical History / Comment(s): ETOH cirrhosis General Exam Limitations: no limitations General appearance: alert, in no apparent distress Head exam: Present: atraumatic, normocephalic Eye exam: Present: normal appearance, PERRL, EOMI. Absent: scleral icterus, conjunctival injection, nystagmus ENT exam: Present: normal oropharynx Neck exam: Present: normal inspection, full ROM. Absent: meningismus Extremities exam: Present: normal inspection, normal capillary refill. Absent: pedal edema, calf tenderness Back exam: Present: normal inspection. Absent: CVA tenderness (R), CVA tenderness (L) Neurological exam: Present: alert, oriented X3, CN II-XII intact. Absent: motor sensory deficit Skin exam: Present: warm, dry, intact, normal color. Absent: rash Course Vital Signs 07/23/24 07/24/24 23:00 01:03 Temperature 98.4 F Pulse Rate 99 79 Respiratory 18 18 Rate Blood Pressure 120/78 113/70 O2 Sat by Pulse 100 98 Oximetry Medical Decision Making - Medical Decision Making Was pt. sent in by a medical professional or institution (IMANI Moreno, [employer], urgent care, hospital, or jail...) When possible be specific @ -[No] Did you speak to anyone other than the patient for history (EMS, parent, family, police, friend...)? What history was obtained from this source @ -[No] Did you review nursing and triage notes (agree or disagree)? Why? @ -[I reviewed and agree with nursing and triage notes] Were old charts reviewed (outside hosp., previous admission, EMS record, old EKG, old radiological studies, urgent care reports/EKG's, jail records)? Report findings @ -[No old charts were reviewed] Differential Diagnosis (chest pain, altered mental status, abdominal pain women, abdominal pain men, vaginal bleeding, weakness, fever, dyspnea, syncope, head ache, dizziness, GI bleed, back pain, seizure, CVA, palpatations, mental health, musculoskeletal)? @ -[Differential Headache: Migraine, tension, cluster, carbon monoxide, central venous thrombosis, pension karma temporal arteritis, acute closure glaucoma, intercranial hemorrhage, mastoiditis, sinusitis, head injury, this is not meant to be an all-inclusive list. EKG interpreted by me (3pts min.). @ -[As above] X-rays interpreted by me (1pt min.). @ -[None done] CT interpreted by me (1pt min.). @ -[None done] U/S interpreted by me (1pt. min.). @ -[None done] What testing was considered but not performed or refused? (CT, X-rays, U/S, labs)? Why? @ -[None] What meds were considered but not given or refused? Why? @ -[None] Did you discuss the management of the patient with other professionals (professionals i.e. , PA, AUTOMATIC LATHE TENDER, lab, RT, psych nurse, social worker school, chimney mechanic, teacher, officer lieutenant, window caser)? Give summary @ -[No] Was smoking cessation discussed for >3mins.? @ -[No] Was critical care preformed (if so, how long)? @ -[No] Were there social determinants of health that impacted care today? How? (Homelessness, low income, unemployed, alcoholism, drug addiction, tr ansportation, low edu. Level, literacy, decrease access to med. care, halfway, rehab)? @ -[No] Was there de-escalation of care discussed even if they declined (Discuss DNR or withdrawal of care, Hospice)? DNR status @ -[No] What co-morbidities impacted this encounter? (DM, HTN, Smoking, COPD, CAD, Ca ncer, CVA, ARF, Chemo, Hep., AIDS, mental health diagnosis, sleep apnea, morbid obesity)? @ -[Diabetes Was patient admitted / discharged? Hospital course, mention meds given and route, prescriptions, significant lab abnormalities, going to OR and other pertinent info. @ -[Patient is 44-year-old man here to have evaluation for headache. The patient's headache does not have concerning features. Physical exam is benign as well. The patient did have good response to treatment. Patient also found to have hyperglycemia and was treated for this as well. Undiagnosed new problem with uncertain prognosis? @ -[No] Drug Therapy requiring intensive monitoring for toxicity (Heparin, Nitro, Insulin, Cardizem)? @ -[No] Were any procedures done? @ -[No] Diagnosis/symptom? @ -[Acute headache Hyperglycemia and diabetic patient Acute, or Chronic, or Acute on Chronic? @ -[Acute Uncomplicated (without systemic symptoms) or Complicated (systemic symptoms)? @ -[Uncomplicated Side effects of treatment? @ -[No] Exacerbation, Progression, or Severe Exacerbation? @ -[No] Poses a threat to life or bodily function? How? (Chest pain, USA, VT, pneumonia, PE, COPD, DKA, ARF, appy, cholecystitis, CVA, Diverticulitis, Homicidal, Suicidal, threat to staff... and all critical care pts) @ -[No] - Lab Data Result diagrams: 07/24/24 00:12 07/24/24 00:12 Lab Results 07/23/24 07/24/24 07/24/24 Range/Units 23:04 00:12 00:12 WBC 3.9 (3.8-10.6) k/uL RBC 4.72 (4.30-5.90) m/uL Hgb 14.0 (13.0-17.5) gm/dL Hct 41.7 (39.0-53.0) % MCV 88.4 (80.0-100.0) fL MCH 29.7 (25.0-35.0) pg MCHC 33.6 (31.0-37.0) g/dL RDW 13.5 (11.5-15.5) % Plt Count 92 L (150-450) k/uL MPV 7.4 Neutrophils % 66 % Lymphocytes % 25 % Monocytes % 5 % Eosinophils % 3 % Basophils % 1 % Neutrophils # 2.5 (1.3-7.7) k/uL Lymphocytes # 1.0 (1.0-4.8) k/uL Monocytes # 0.2 (0-1.0) k/uL Eosinophils # 0.1 (0-0.7) k/uL Basophils # 0.0 (0-0.2) k/uL Manual Slide Review Performed Tear Drop Cells Present Sodium 139 (137-145) mmol/L Potassium 3.7 (3.5-5.1) mmol/L Chloride 104 (98-107) mmol/L Carbon Dioxide 26 (22-30) mmol/L Anion Gap 9 mmol/L BUN 8 L (9-20) mg/dL Creatinine 0.67 (0.66-1.25) mg/dL Est GFR (CKD-EPI)AfAm >90 (>60 ml/min/1.73 sqM) Est GFR (CKD-EPI)NonAf >90 (>60 ml/min/1.73 sqM) Glucose 217 H (74-99) mg/dL POC Glucose (mg/dL) 263 H (70-110) mg/dL POC Glu Marine Diesel Technician ID Otto Aguayo Calcium 8.9 (8.4-10.2) mg/dL Total Bilirubin 1.0 (0.2-1.3) mg/dL AST 52 (17-59) U/L ALT 53 H (4-49) U/L Alkaline Phosphatase 84 (38-126) U/L Total Protein 7.3 (6.3-8.2) g/dL Albumin 4.0 (3.5-5.0) g/dL Acetone, Qual Negative (Negative) 07/24/24 07/24/24 Range/Units 00:42 01:28 WBC (3.8-10.6) k/uL RBC (4.30-5.90) m/uL Hgb (13.0-17.5) gm/dL Hct (39.0-53.0) % MCV (80.0-100.0) fL MCH (25.0-35.0) pg MCHC (31.0-37.0) g/dL RDW (11.5-15.5) % Plt Count (150-450) k/uL MPV Neutrophils % % Lymphocytes % % Monocytes % % Eosinophils % % Basophils % % Neutrophils # (1.3-7.7) k/uL Lymphocytes # (1.0-4.8) k/uL Monocytes # (0-1.0) k/uL Eosinophils # (0-0.7) k/uL Basophils # (0-0.2) k/uL Manual Slide Review Tear Drop Cells Sodium (137-145) mmol/L Potassium (3.5-5.1) mmol/L Chloride (98-107) mmol/L Carbon Dioxide (22-30) mmol/L Anion Gap mmol/L BUN (9-20) mg/dL Creatinine (0.66-1.25) mg/dL Est GFR (CKD-EPI)AfAm (>60 ml/min/1.73 sqM) Est GFR (CKD-EPI)NonAf (>60 ml/min/1.73 sqM) Glucose (74-99) mg/dL POC Glucose (mg/dL) 168 H 135 H (70-110) mg/dL POC Glu Marine Diesel Technician ID Steffi Susy Steffi Susy Calcium (8.4-10.2) mg/dL Total Bilirubin (0.2-1.3) mg/dL AST (17-59) U/L ALT (4-49) U/L Alkaline Phosphatase (38-126) U/L Total Protein (6.3-8.2) g/dL Albumin (3.5-5.0) g/dL Acetone, Qual (Negative) Disposition Clinical Impression: Headache, Hyperglycemia Disposition: HOME SELF-CARE Condition: Good Instructions (If sedation given, give patient instructions): Acute Headache (ED), Diabetic Hyperglycemia (ED) Is patient prescribed a controlled substance at d/c from ED?: No Referrals: Irvin Hernandez MD [Primary Care Provider] - 1-2 days Parvin Pizano [STAFF PHYSICIAN] - 1-2 days
== END 2024-07-24 01:53 | disposition home or self-care (01) ==
LOC: EC 22:43
DX: R51.9 Headache, unspecified (principal); E11.65 Type 2 diabetes mellitus with hyperglycemia; F17.290 Nicotine dependence, other tobacco product, uncomplicated
CPT/HCPCS: 36415; 80053; 82009; 85025; 96360; 96361; 99284

== ENCOUNTER → 2024-07-25 | Outpatient (CLI) | payer OTHER ==
--- NOTE | 2024-07-25 11:06 | FL ---
EXAMINATION TYPE: FL UGI w esophagus DATE OF EXAM: 07/25/2024 CLINICAL INDICATION: 44-year-old male R13.19, dysphagia. Patient with GERD. Sensation of certain lorraine ds such as apples getting stuck in the throat area. Intermittent hoarseness. COMPARISON: Correlation CT 10/12/2023 Total fluoroscopy time 1 minute 53 seconds. Total images: 56. Total DAP: 50 mGycm2. FINDINGS: The swallowing mechanism is normal. However, there is some prominent anterior endplate spondylosis C5 -C6 impressing on to the back wall of the cervical esophagus. In addition, there is some suspected th ickening of the cricopharyngeus muscle. A small Zenker's diverticulum is also demonstrated on prone d rinking. The thoracic portion has a normal course and caliber and normal motility. The mucosa is normal and no persistent filling defect is encountered. There is a small sliding hiatal hernia. Mild gastroesophageal reflux is seen during the course of the exam. The stomach and duodenum are free of any persistent filling defect and demonstrate a normal mucosal p attern. IMPRESSION: 1. Some backwall impression onto the cervical esophagus likely due to combination of anterior endplat e spurring at C5-C6 and some thickening of the cricopharyngeus. This results in relative mild stenosi s. 2. Small Zenker's diverticulum. 3. Small sliding hiatal hernia with at least mild gastroesophageal reflux. 4. Note additional incidental findings on patient's prior 10/12/2023 CT suspicious for underlying fatt y liver, cirrhosis, and concurrent portal venous hypertension given the recanalized umbilical vein an d splenomegaly. GI referral recommended. [facility], , 07/25/2024 11:04 AM
== END | disposition home or self-care (01) ==
LOC: RADFLMAIN 09:00
PROVIDERS: ATTEND Family Medicine
CPT/HCPCS: 74240

== ENCOUNTER 2024-08-24 08:25 | Day surgery (SDC) | payer OTHER ==
[2024-08-24 08:53] VITALS: TEMP 98
[2024-08-24] MEDS: IV FLUID CONTINUATION 1,000 ML IV ONE (09:01)
[2024-08-24] MEDS: LACTATED RINGERS 1,000 ML IV SCH (09:01)
[2024-08-24 09:03] LABS: Glucose,Whole Blood 220 mg/dL (70-110)
[2024-08-24] MEDS ORDERED: LIDOCAINE 1% INJ 10MG/ML (20 ML MDV) ONE (09:03)
[2024-08-24] MEDS ORDERED: PROPOFOL 10 MG/ML 20 ML VIAL IV ONE (09:03)
--- NOTE | 2024-08-24 09:13 | P.PCN ---
Date of Procedure: 08/24/24 Procedure(s) Performed: BRIEF HISTORY: Patient is a 44-year-old, pleasant, white male scheduled upper endoscopy as a part evaluation of intermittent dysphagia to solids for the last 6 months duration. He does have longstanding stable GERD and is presently on Pepcid 20 mg daily with good relief of his symptoms. PROCEDURE PERFORMED: Esophagogastroduodenoscopy with biopsy. PREOPERATIVE DIAGNOSIS: Intermittent dysphagia to solids for the last 6 months duration. IV sedation per anesthesia. PROCEDURE: After informed consent was obtained, the patient was brought into the endoscopy unit. IV sedation was administered by Anesthesia under continuous monitoring. Initially the Olympus GIF-140 video endoscope was inserted into the mouth. Esophagus intubated without any difficulty. It was gradually advanced into the stomach and duodenum and carefully examined. The bulb and the second part of the duodenum appeared normal. The scope at this time was withdrawn to the stomach, adequately insufflated with air, and upon careful examination, mucosa of the antrum, body, cardia and the fundus appeared normal. Amount of solid food noted in the stomach suggestive of diabetic gastroparesis. No evidence of gastric outlet obstruction. The scope was then withdrawn into the esophagus. The GE junction was located at 44 cm from the incisors. The esophagus appeared normal. There were no erosions or ulcerations seen. No evidence of esophageal stricture. In the proximal esophagus there was a 3 mm polyp id entified which was removed by cold biopsy. Also biopsies were done from the mid and distal esophagus rule out eosinophilic esophagitis and the patient tolerated the procedure well. IMPRESSION: 1. Moderate amount of retained solid food in the stomach suggestive of diabetic gastroparesis. 2. No evidence of esophagitis or esophageal stricture 3. 3 mm proximal esophageal polyp status post biopsy. RECOMMENDATIONS: The findings of this examination were discussed with the patient as well as his family. He was advised to follow-up with the biopsy results. His symptoms are likely related to get diabetic gastroparesis and hence he was advised to be on small frequent meals and aggressive control of blood sugars. Meantime we will also await biopsy results and he will be seen in the office in 2 weeks..
[2024-08-24 09:44] VITALS: RESP 18
[2024-08-24 09:58] VITALS: BP 128/72; PULSE 82
== END 2024-08-24 10:16 | disposition home or self-care (01) ==
LOC: ORWHC2ENDO 08:25
PROVIDERS: ATTEND Internal Medicine Gastroenterology
DX: K22.81 Esophageal polyp (principal); K21.9 Gastro-esophageal reflux disease without esophagitis; E78.5 Hyperlipidemia, unspecified; F17.210 Nicotine dependence, cigarettes, uncomplicated; E11.9 Type 2 diabetes mellitus without complications; K75.81 Nonalcoholic steatohepatitis (NASH); Z90.89 Acquired absence of other organs; Z79.02 Long term (current) use of antithrombotics/antiplatelets; Z79.4 Long term (current) use of insulin; Z79.899 Other long term (current) drug therapy
CPT/HCPCS: 88305; 43239; J2003; J2704

== ENCOUNTER → 2024-09-11 | Outpatient (CLI) | payer OTHER ==
[2024-09-11 16:00] LABS: Basophils # (A) 0.03 X 10*3/uL (0.00-0.10); Basophils % (A) 0.7 %; Eosinophils # (A) 0.07 X 10*3/uL (0.04-0.35); Eosinophils % (A) 1.6 %; HCT 45.1 % (39.6-50.0); HGB 15.1 g/dL (13.0-17.0); Lymphocytes # (A) 1.06 X 10*3/uL (0.90-5.00); Lymphocytes % (A) 24.7 %; MCH 29.3 pg (27.0-32.0); MCHC 33.5 g/dL (32.0-37.0); MCV 87.6 FL (80.0-97.0); Mean Platelet Volume 11.1 FL (9.5-12.2); Monocytes # (A) 0.27 X 10*3/uL (0.20-1.00); Monocytes % (A) 6.3 %; NRBC Per 100 WBC 0 X 10*3/uL (0.00-0.01); Neutrophils # (A) 2.85 X 10*3/uL (1.80-7.70); Neutrophils % (A) 66.5 %; Platelet Count 104 X 10*3/uL (140-440); RBC 5.15 X 10*6/uL (4.40-5.60); RDW 13.4 % (11.5-14.5); WBC 4.29 X 10*3/uL (4.50-10.00)
[2024-09-11 16:16] LABS: ALT 44 U/L (10-49); AST 37 U/L (14-35); Albumin 4.4 g/dL (3.8-4.9); Albumin/Globulin Ratio 1.26 Ratio (1.60-3.17); Alkaline Phosphatase 114 U/L (41-126); BUN/Creat Ratio 10.11 Ratio (12.00-20.00); Blood Urea Nitrogen 9.1 mg/dL (9.0-27.0); Calcium 9.3 mg/dL (8.7-10.3); Carbon Dioxide 26.9 mmol/L (21.6-31.8); Chloride 105 mmol/L (96-109); Chol/HDL Ratio 4.56 Ratio; Globulin 3.5 g/dL (1.6-3.3); Glucose 157 mg/dL (70-110); LDL Cholesterol,Calculated 65.8 mg/dL (0.0-131.0); Potassium 4.1 mmol/L (3.5-5.5); Sodium 142 mmol/L (135-145); Total Bilirubin 0.9 mg/dL (0.3-1.2); Total Protein 7.9 g/dL (6.2-8.2)
[2024-09-11 21:18] LABS: HIV 2 AB Non-Reactive (Non-Reactive); HIV AB P24 Non-Reactive (Non-Reactive); HIV P24 AG Non-Reactive (Non-Reactive)
== END | disposition home or self-care (01) ==
LOC: LABWHC1 11:02
PROVIDERS: ATTEND Family Medicine
DX: Z11.4 Encounter for screening for human immunodeficiency virus [HIV] (principal); E11.65 Type 2 diabetes mellitus with hyperglycemia; E55.9 Vitamin D deficiency, unspecified
CPT/HCPCS: 36415; 80053; 80061; 82306; 83036; 84443; 85025; 87390

== ENCOUNTER → 2024-10-02 | Outpatient (CLI) | payer OTHER ==
--- NOTE | 2024-10-02 10:39 | US ---
EXAMINATION TYPE: US liver DATE OF EXAM: 10/02/2024 COMPARISON: CT abdomen and pelvis 10/12/2023, gallbladder ultrasound 11/23/2022, ultrasound liver 2021, 03/25/2022 CLINICAL INDICATION: Male, 44 years old with history of K74.60 Unspecified cirrhosis of liver; known cirrhosis, no symptoms TECHNIQUE: Grayscale and color Doppler imaging of the right upper quadrant was performed. FINDINGS: EXAM MEASUREMENTS: Liver Length: 14.4 Gallbladder Wall: 0.2cm CBD: 0.4 cm Right Kidney: 10.7 x 5.3 x 6.4 cm Pancreas: portions seen appear wnl Liver: difficult to penetrate Gallbladder: wnl Evidence for sonographic Damon's sign: no CBD: wnl Right Kidney: wnl Liver demonstrates heterogenous appearance with surface nodularity and difficult to penetrate. No foc al lesion identified within these limitations. The visualized portions of the pancreas are unremarkab le. The gallbladder demonstrates no stones, wall thickening or surrounding fluid. Negative sonographi c Damon's sign. Common bile duct is within normal limits. Right kidney demonstrates no shadowing saravanan culi, hydronephrosis, or solid mass. IMPRESSION: Hepatic cirrhosis without focal lesion. [facility], , 10/02/2024 10:37 AM
== END | disposition home or self-care (01) ==
LOC: RADUSWWP 09:36
PROVIDERS: ATTEND Internal Medicine Gastroenterology
DX: K74.60 Unspecified cirrhosis of liver (principal)
CPT/HCPCS: 76705

== ENCOUNTER → 2024-10-02 | Outpatient (CLI) | payer OTHER ==
--- NOTE | 2024-10-02 10:21 | XR ---
EXAMINATION TYPE: XR shoulder complete 3 views RT DATE OF EXAM: 10/02/2024 10:11 AM COMPARISON: None CLINICAL INDICATION: Male, 44 years old with history of M24.811 joint derangement R shoulder, shoulde r pain FINDINGS: Moderate degenerative change AC joint with some joint space narrowing. Subacromial space is preserved . Some bony hypertrophy at the inferior glenoid suggesting triceps enthesopathy. No acute fracture, s ubluxation, or dislocation is seen. IMPRESSION: No acute osseous abnormality seen. [facility], , 10/02/2024 10:19 AM
== END | disposition home or self-care (01) ==
LOC: RADXRMAIN 09:59
PROVIDERS: ATTEND Family Medicine
DX: M24.811 Other specific joint derangements of right shoulder, not elsewhere classified (principal)

== ENCOUNTER 2024-11-24 02:13 | Observation (INO) | payer OTHER ==
[2024-11-24 03:29] LABS: Glucose,Whole Blood 232 mg/dL (70-110)
[2024-11-24 03:42] LABS: Basophils % (A) 1 %; Eosinophils # (A) 0.1 k/uL (0-0.7); Eosinophils % (A) 3 %; HCT 40.4 % (39.0-53.0); HGB 13.9 gm/dL (13.0-17.5); Lymphocytes # (A) 0.9 k/uL (1.0-4.8); Lymphocytes % (A) 23 %; MCH 29.3 pg (25.0-35.0); MCHC 34.4 g/dL (31.0-37.0); MCV 85.3 fL (80.0-100.0); Mean Platelet Volume 7.7; Monocytes # (A) 0.2 k/uL (0-1.0); Monocytes % (A) 6 %; Neutrophils # (A) 2.6 k/uL (1.3-7.7); Neutrophils % (A) 67 %; RBC 4.73 m/uL (4.30-5.90); RDW 13.6 % (11.5-15.5); WBC 3.9 k/uL (3.8-10.6)
[2024-11-24] MEDS: ASPIRIN 81 MG PO STA (03:51)
[2024-11-24] MEDS: MORPHINE SULFATE 4 MG/ML SYRINGE IVP STA (03:52)
[2024-11-24] MEDS: SODIUM CHLORIDE 0.9% 1,000 ML IV STA (03:52)
[2024-11-24] MEDS: ONDANSETRON 4 MG/2 ML VIAL IVP STA (03:53)
[2024-11-24 03:57] LABS: INR 1.1 (<1.2); Partial Thromboplastin Time 25.2 sec (22.0-30.0); Prothrombin Time 11.7 sec (10.0-12.5)
[2024-11-24 04:10] LABS: ALT 59 U/L (4-49); AST 49 U/L (17-59); African American GFR (CKD) >90 (>60 ml/min/1.73 sqM); Albumin 3.9 g/dL (3.5-5.0); Alkaline Phosphatase 99 U/L (38-126); Anion Gap 11 mmol/L; Blood Urea Nitrogen 12 mg/dL (9-20); Calcium 8.6 mg/dL (8.4-10.2); Carbon Dioxide 26 mmol/L (22-30); Chloride 102 mmol/L (98-107); Glucose 200 mg/dL (74-99); Magnesium 1.9 mg/dL (1.6-2.3); Non-African American GFR(CKD) >90 (>60 ml/min/1.73 sqM); Potassium 4.1 mmol/L (3.5-5.1); Sodium 139 mmol/L (137-145); Total Protein 6.9 g/dL (6.3-8.2)
[2024-11-24 04:21] LABS: Influenza A Not Detected (Not Detectd); Influenza B Not Detected (Not Detectd); RSV Not Detected (Not Detectd)
--- NOTE | 2024-11-24 04:38 | ED ---
General Adult HPI - General Chief complaint: Dizziness Stated complaint: Neuro Symptoms Time Seen by Provider: 11/24/24 02:29 Source: patient Mode of arrival: wheelchair Limitations: no limitations - History of Present Illness Initial comments: Patient is a 44-year-old gentleman history diabetes, hyperlipidemia, Worley presenting today for generalized weakness. Patient states a p.m. last night he was at [facility] with his significant other when he began feeling weak, dizzy, felt like he had to lean onto the shelf in the aisle to hold himself up. He als o felt like he has difficulty with word finding, stating he was on the phone with his mother and could not answer some of her questions. He went to bed at 130 woke up with persistent generalized weakness and not feeling well. Significant other checked his blood pressure states that systolics were in the 170s and diastolic was 120 prompting his presentation to the ER. Patient has no history of prior CVA. Last known well was 8 PM. He denies loss of vision, headache, focal numbness or weakness. States that dizziness is described as a lightheadedness exacerbated upon standing. Not currently dizzy. Also notes and went to the ER he began experiencing sharp pain under his left axilla. Denies shortness of breath or difficulty in breathing. Denies abdominal pain nausea or vomiting. Denies fevers or chills. Patient's significant other did have influenza last week. Patient denies cough. No first-degree relatives with prior CVA or ACS. - Related Data Home Medications Medication Instructions Recorded Confirmed Dulaglutide [Trulicity] 4.5 mg SQ FR 11/23/22 11/24/24 Glimepiride [Amaryl] 1 mg PO DAILY 11/23/22 11/24/24 Insulin Glargine,Hum.rec.anlog 50 units SQ DAILY 08/23/24 11/24/24 [Lantus Solostar Pen] Atorvastatin [Lipitor] 40 mg PO DAILY 11/24/24 11/24/24 Cholestyramine (with Sugar) 4 gm PO BID-W/MEALS 11/24/24 11/24/24 [Questran Packet] Dicyclomine [Bentyl] 20 mg PO QID PRN 11/24/24 11/24/24 Emtricitabine/Tenofovir (Tdf) 1 tab PO DAILY 11/24/24 11/24/24 [Emtricitabine-Tenofv 200-300Mg] Ergocalciferol (Vitamin D2) 1,250 mcg PO MO 11/24/24 11/24/24 [Drisdol (50,000 Iu)] Famotidine [Pepcid] 20 mg PO BID 11/24/24 11/24/24 Lactulose 10 gm PO TID 11/24/24 11/24/24 Meclizine [Antivert] 25 mg PO TID PRN 11/24/24 11/24/24 Omeprazole 20 mg PO AC-BID 11/24/24 11/24/24 hydrOXYzine HCL [Atarax] 25 mg PO TID PRN 11/24/24 11/24/24 lisinopriL [Zestril] 2.5 mg PO DAILY 11/24/24 11/24/24 metFORMIN HCL 500 mg PO BID 11/24/24 11/24/24 Previous Rx's Medication Instructions Recorded Aspirin 81 mg PO DAILY #30 tab 11/26/24 Allergies Allergy/AdvReac Type Severity Reaction Status Date / Time No Known Allergies Allergy Verified 11/24/24 09:09 Review of Systems ROS Statement: Those systems with pertinent positive or pertinent negative responses have been documented in the HPI. ROS Other: All systems not noted in ROS Statement are negative. Past Medical History Past Medical History: Diabetes Mellitus, GERD/Reflux, Hyperlipidemia, Liver Disease Additional Past Medical History / Comment(s): WORLEY - nonalcoholic steatohepatitis, Hx. H.Pylori,Type II DM History of Any Multi-Drug Resistant Organisms: None Reported Past Surgical History: Appendectomy Additional Past Surgical History / Comment(s): penile surg at the age of 5 (unsure what was the procedure was), liver biopsy, EGD/colonoscopy Past Anesthesia/Blood Transfusion Reactions: No Reported Reaction Additional Past Anesthesia/Blood Transfusion Reaction / Comment(s): HAS NEVER GENERAL ANESTHESIA. Past Psychological History: Anxiety Smoking Status: Vaper Past Alcohol Use History: None Reported Past Drug Use History: None Reported - Past Family History Father Family Medical History: Liver Disease Additional Family Medical History / Comment(s): ETOH cirrhosis General Exam - General Exam Comments Initial Comments: PE: CONSTITUTIONAL: [no apparent distress, well appearing] SKIN: [warm, dry, no jaundice, hives or petechiae] EYES:[ pupils are equally round, extraocular movements intact without nystagmus, clear conjunctiva, non-icteric sclera] HENT: [normocephalic, atraumatic, moist mucus membranes, oropharynx clear without exudates] NECK: , [Full range of motion, normal appearance] PULMONARY: [clear to auscultation without wheezes, rhonchi, or rales, normal excursion, no accessory muscle use and no stridor] CARDIOVASCULAR:[ regular rate, rhythm, normal S1 and S2. No appreciated murmurs, rubs or gallops. Strong radial pulses with intact distal perfusion. No lower extremity edema] GASTROINTESTINAL: [soft, active bowel sounds throughout, non-tender, non- distended, no palpable masses, no rebound or guarding. No hepatosplenomegaly] GENITOURINARY: MUSCULOSKELETAL: [Extremities have no gross deformity, no edema, redness, or swelling. No calf swelling ] NEUROLOGIC: [_a/o x 3, GCS 15, normal mentation and speech. Moves all extremities x 4 without motor or sensory deficit, cranial nerves: II (visual lemon without defects), III, IV and (extraocular movements are intact, pupils are equal with normal reaction to light), V (intact facial sensation and jaw opening), VII (no facial droop), IX and X (normal palate movement, midline uvula, normal voice), XI (symmetrical shoulder shrug and lateral head rotation against resistance), XII (midline tongue protrusion). Motor strength is 5/5 in all extremities. No abnormal movements. Normal muscle tone. Sensation to light touch is intact bilaterally. No cerebellar signs ([id number], [id number], and rapid alternating movements are normal)] PSYCHIATRIC:[ _normal mood and affect, thought process is clear and linear] Limitations: no limitations Course Vital Signs 11/24/24 11/24/24 11/24/24 02:14 04:00 05:00 Temperature 98.6 F Pulse Rate 103 H 95 84 Respiratory 16 Rate Blood Pressure 123/86 111/74 110/75 O2 Sat by Pulse 97 98 98 Oximetry 11/24/24 11/24/24 11/24/24 06:00 08:00 09:00 Temperature Pulse Rate 78 68 86 Respiratory 19 16 20 Rate Blood Pressure 99/60 111/75 120/68 O2 Sat by Pulse 96 98 98 Oximetry 11/24/24 11/25/24 11/25/24 11:00 02:53 04:00 Temperature Pulse Rate 78 85 81 Respiratory 20 16 16 Rate Blood Pressure 130/68 101/68 98/74 O2 Sat by Pulse 98 96 95 Oximetry EKG Findings - EKG Comments: EKG Findings:: Sinus rhythm, rate 90 bpm MN interval 124 ms QT/QTc 369/460 ms, normal axis, no ST elevations or depressions no STEMI or arrhythmia Medical Decision Making - Medical Decision Making Was pt. sent in by a medical professional or institution (, PA, REPAIR WEAVER, urgent care, hospital, or group home...) When possible be specific @ -No Did you speak to anyone other than the patient for history (EMS, parent, family, police, friend...)? What history was obtained from this source @ -No Did you review nursing and triage notes (agree or disagree)? Why? @ -I reviewed nursing and triage notes Were old charts reviewed (outside hosp., previous admission, EMS record, old EKG, old radiological studies, urgent care reports/EKG's, group home records)? Report findings @ -Medical records reviewed Differential Diagnosis (chest pain, altered mental status, abdominal pain women, abdominal pain men, vaginal bleeding, weakness, fever, dyspnea, syncope, headache, dizziness, GI bleed, back pain, seizure, CVA, palpatations, mental health, musculoskeletal)? Torrential diagnosis remains broad over top considerations include Ischemic stroke, hemorrhagic stroke, brain tumor, atypical migraine, Wernicke's encephalopathy, seizure, multiple sclerosis, meningitis, encephalitis, hypoglycemia, Guillain-Carrizales, electrolytes disturbance, myasthenia gravis.... This is not meant to be an all-inclusive list EKG interpreted by me (3pts min.). @ -As above X-rays interpreted by me (1pt min.). @ -No cardiomegaly, consolidations or pleural effusions noted CT interpreted by me (1pt min.). @ -CT brain, CTA head and neck reviewed, I see no evidence of hemorrhage or mass effect on CT brain, no evidence of large vessel occlusion or dissection on CTA U/S interpreted by me (1pt. min.). @ -None done What testing was considered but not performed or refused? (CT, X-rays, U/S, labs)? Why? @ -None What meds were considered but not given or refused? Why? @ -None Did you discuss the management of the patient with other professionals (professionals i.e. , PA, REPAIR WEAVER, lab, RT, psych nurse, community mental health social worker, animal therapist, teacher, military police officer, rehabilitation caseworker)? Give summary @ -No Was smoking cessation discussed for >3mins.? @ -No Was critical care preformed (if so, how long)? @ -No Were there social determinants of health that impacted care today? How? (Homelessness, low income, unemployed, alcoholism, drug addiction, transportation, low edu. Level, literacy, decrease access to med. care, correction, rehab)? @ -No Was there de-escalation of care discussed even if they declined (Discuss DNR or withdrawal of care, Hospice)? @ -No What co-morbidities impacted this encounter? (DM, HTN, Smoking, COPD, CAD, Cancer, CVA, ARF, Chemo, Hep., AIDS, mental health diagnosis, sleep apnea, morbid obesity)? Hyperlipidemia diabetes Was patient admitted / discharged? Hospital course, mention meds given and route, prescriptions, significant lab abnormalities, going to OR and other pertinent info. @ -Admission -this is a 44-year-old gentleman presenting today for generalized weakness, aphasia, dizziness and hypertension. Last known well was 8 PM. No history of CVA. On my assessment patient has no focal deficits and an NIH of 0. Does not appear aphasic during exam, speech is fluent and mentation is clear. Does have a history of Worley. Differential diagnosis above however top considerations include hyperammonemia, infection, electrolyte abnormality, CVA, ACS this is not an inclusive list. A stroke alert was not activated given NIH 0 on assessment, no signs LVO and LNK outside window for tNK. Comprehensive labs, imaging ordered. Patient did not endorse sharp pain underneath his left axilla as well and out of the hospital. He is comfortable appearing and denies additional chest pain or shortness of breath. ACS labs we ordered as well. Patient and significant other agreeable plan of care. Labs reviewed. Significant for ammonia 54. Patient does take lactulose at home. This could be contributing to his symptoms, dose lactulose was ordered here. Imaging negative for acute process. Patient endorses improvement of symptoms. Symptoms could be contributed to elevated ammonia however unclear whether or not symptoms attributable to TIA so patient will be admitted for observation and TIA workup. Patient agreeable plan of care. Patient accepted for admission by ISAAC Vaca Undiagnosed new problem with uncertain prognosis? @ -No Drug Therapy requiring intensive monitoring for toxicity (Heparin, Nitro, Insulin, Cardizem)? @ -No Were any procedures done? @ -No Diagnosis/symptom? @, Dizziness, generalized weakness Acute, or Chronic, or Acute on Chronic? @ -Acute Uncomplicated (without systemic symptoms) or Complicated (systemic symptoms)? @Complicated Side effects of treatment? @ -No Exacerbation, Progression, or Severe Exacerbation? @ -No Poses a threat to life or bodily function? How? (Chest pain, USA, MA, pneumonia, PE, COPD, DKA, ARF, appy, cholecystitis, CVA, Diverticulitis, Homicidal, Suicidal, threat to staff... and all critical care pts) @Potentially - Lab Data Result diagrams: 11/25/24 02:35 11/25/24 02:35 Lab Results 11/24/24 11/24/24 11/24/24 Range/Units 02:30 02:30 02:30 WBC 3.9 (3.8-10.6) k/uL RBC 4.73 (4.30-5.90) m/uL Hgb 13.9 (13.0-17.5) gm/dL Hct 40.4 (39.0-53.0) % MCV 85.3 (80.0-100.0) fL MCH 29.3 (25.0-35.0) pg MCHC 34.4 (31.0-37.0) g/dL RDW 13.6 (11.5-15.5) % Plt Count 96 L (150-450) k/uL MPV 7.7 Neutrophils % 67 % Lymphocytes % 23 % Monocytes % 6 % Eosinophils % 3 % Basophils % 1 % Neutrophils # 2.6 (1.3-7.7) k/uL Lymphocytes # 0.9 L (1.0-4.8) k/uL Monocytes # 0.2 (0-1.0) k/uL Eosinophils # 0.1 (0-0.7) k/uL Basophils # 0.0 (0-0.2) k/uL Manual Slide Review Performed PT 11.7 (10.0-12.5) sec INR 1.1 (<1.2) APTT 25.2 (22.0-30.0) sec Sodium 139 (137-145) mmol/L Potassium 4.1 (3.5-5.1) mmol/L Chloride 102 (98-107) mmol/L Carbon Dioxide 26 (22-30) mmol/L Anion Gap 11 mmol/L BUN 12 (9-20) mg/dL Creatinine 0.85 (0.66-1.25) mg/dL Est GFR (CKD-EPI)AfAm >90 (>60 ml/min/1.73 sqM) Est GFR (CKD-EPI)NonAf >90 (>60 ml/min/1.73 sqM) Glucose 200 H (74-99) mg/dL POC Glucose (mg/dL) (70-110) mg/dL POC Glu Claims Vice President ID Calcium 8.6 (8.4-10.2) mg/dL Magnesium 1.9 (1.6-2.3) mg/dL Total Bilirubin 1.0 (0.2-1.3) mg/dL AST 49 (17-59) U/L ALT 59 H (4-49) U/L Alkaline Phosphatase 99 (38-126) U/L Ammonia (<30) umol/L Troponin I (0.000-0.034) ng/mL Total Protein 6.9 (6.3-8.2) g/dL Albumin 3.9 (3.5-5.0) g/dL Urine Color Urine Appearance (Clear) Urine pH (5.0-8.0) Ur Specific [place] (1.001-1.035) Urine Protein (Negative) Urine Glucose (UA) (Negative) Urine Ketones (Negative) Urine Blood (Negative) Urine Nitrite (Negative) Urine Bilirubin (Negative) Urine Urobilinogen (<2.0) mg/dL Ur Leukocyte Esterase (Negative) Influenza Type A (PCR) (Not Detectd) Influenza Type B (PCR) (Not Detectd) RSV (PCR) (Not Detectd) SARS-CoV-2 (PCR) (Not Detectd) 11/24/24 11/24/24 11/24/24 Range/Units 02:30 02:30 02:30 WBC (3.8-10.6) k/uL RBC (4.30-5.90) m/uL Hgb (13.0-17.5) gm/dL Hct (39.0-53.0) % MCV (80.0-100.0) fL MCH (25.0-35.0) pg MCHC (31.0-37.0) g/dL RDW (11.5-15.5) % Plt Count (150-450) k/uL MPV Neutrophils % % Lymphocytes % % Monocytes % % Eosinophils % % Basophils % % Neutrophils # (1.3-7.7) k/uL Lymphocytes # (1.0-4.8) k/uL Monocytes # (0-1.0) k/uL Eosinophils # (0-0.7) k/uL Basophils # (0-0.2) k/uL Manual Slide Review PT (10.0-12.5) sec INR (<1.2) APTT (22.0-30.0) sec Sodium (137-145) mmol/L Potassium (3.5-5.1) mmol/L Chloride (98-107) mmol/L Carbon Dioxide (22-30) mmol/L Anion Gap mmol/L BUN (9-20) mg/dL Creatinine (0.66-1.25) mg/dL Est GFR (CKD-EPI)AfAm (>60 ml/min/1.73 sqM) Est GFR (CKD-EPI)NonAf (>60 ml/min/1.73 sqM) Glucose (74-99) mg/dL POC Glucose (mg/dL) (70-110) mg/dL POC Glu Claims Vice President ID Calcium (8.4-10.2) mg/dL Magnesium (1.6-2.3) mg/dL Total Bilirubin (0.2-1.3) mg/dL AST (17-59) U/L ALT (4-49) U/L Alkaline Phosphatase (38-126) U/L Ammonia 54 H (<30) umol/L Troponin I <0.012 (0.000-0.034) ng/mL Total Protein (6.3-8.2) g/dL Albumin (3.5-5.0) g/dL Urine Color Urine Appearance (Clear) Urine pH (5.0-8.0) Ur Specific [place] (1.001-1.035) Urine Protein (Negative) Urine Glucose (UA) (Negative) Urine Ketones (Negative) Urine Blood (Negative) Urine Nitrite (Negative) Urine Bilirubin (Negative) Urine Urobilinogen (<2.0) mg/dL Ur Leukocyte Esterase (Negative) Influenza Type A (PCR) Not Detected (Not Detectd) Influenza Type B (PCR) Not Detected (Not Detectd) RSV (PCR) Not Detected (Not Detectd) SARS-CoV-2 (PCR) Not Detected (Not Detectd) 11/24/24 11/24/24 Range/Units 03:28 05:00 WBC (3.8-10.6) k/uL RBC (4.30-5.90) m/uL Hgb (13.0-17.5) gm/dL Hct (39.0-53.0) % MCV (80.0-100.0) fL MCH (25.0-35.0) pg MCHC (31.0-37.0) g/dL RDW (11.5-15.5) % Plt Count (150-450) k/uL MPV Neutrophils % % Lymphocytes % % Monocytes % % Eosinophils % % Basophils % % Neutrophils # (1.3-7.7) k/uL Lymphocytes # (1.0-4.8) k/uL Monocytes # (0-1.0) k/uL Eosinophils # (0-0.7) k/uL Basophils # (0-0.2) k/uL Manual Slide Review PT (10.0-12.5) sec INR (<1.2) APTT (22.0-30.0) sec Sodium (137-145) mmol/L Potassium (3.5-5.1) mmol/L Chloride (98-107) mmol/L Carbon Dioxide (22-30) mmol/L Anion Gap mmol/L BUN (9-20) mg/dL Creatinine (0.66-1.25) mg/dL Est GFR (CKD-EPI)AfAm (>60 ml/min/1.73 sqM) Est GFR (CKD-EPI)NonAf (>60 ml/min/1.73 sqM) Glucose (74-99) mg/dL POC Glucose (mg/dL) 232 H (70-110) mg/dL POC Glu Claims Vice President ID [facility] Calcium (8.4-10.2) mg/dL Magnesium (1.6-2.3) mg/dL Total Bilirubin (0.2-1.3) mg/dL AST (17-59) U/L ALT (4-49) U/L Alkaline Phosphatase (38-126) U/L Ammonia (<30) umol/L Troponin I (0.000-0.034) ng/mL Total Protein (6.3-8.2) g/dL Albumin (3.5-5.0) g/dL Urine Color Light Yellow Urine Appearance Clear (Clear) Urine pH 6.5 (5.0-8.0) Ur Specific [place] 1.038 H (1.001-1.035) Urine Protein Negative (Negative) Urine Glucose (UA) 3+ H (Negative) Urine Ketones Negative (Negative) Urine Blood Negative (Negative) Urine Nitrite Negative (Negative) Urine Bilirubin Negative (Negative) Urine Urobilinogen 2.0 (<2.0) mg/dL Ur Leukocyte Esterase Negative (Negative) Influenza Type A (PCR) (Not Detectd) Influenza Type B (PCR) (Not Detectd) RSV (PCR) (Not Detectd) SARS-CoV-2 (PCR) (Not Detectd) Disposition Clinical Impression: Generalized weakness, Hyperammonemia Disposition: ADMITTED IP TO THIS [facility] Condition: Stable
[2024-11-24] MEDS: LACTULOSE 20 GM/30 ML CUP PO ONE (05:20)
--- NOTE | 2024-11-24 05:23 | CT ---
EXAM: CT Angiography Head With Intravenous Contrast CLINICAL HISTORY: ITS.REASON CT Reason: dizziness, trouble word finding TECHNIQUE: Axial computed tomographic angiography images of the head with intravenous contrast. CTDI is 57.4 mGy and DLP is 1184.9 mGy-cm. This CT exam was performed using one or more of the following dose reduction techniques: automated exposure control, adjustment of the mA and/or kV according to patient size, and/or use of iterative reconstruction technique. MIP reconstructed images were created and reviewed. COMPARISON: No relevant prior studies available. FINDINGS: Right internal carotid artery: No significant stenosis. No aneurysm. Right anterior cerebral artery: No significant stenosis. No aneurysm. Right middle cerebral artery: No significant stenosis. No aneurysm. Right posterior cerebral artery: No significant stenosis. No aneurysm. Right vertebral artery: Unremarkable. Left internal carotid artery: No significant stenosis. No aneurysm. Left anterior cerebral artery: No significant stenosis. No aneurysm. Left middle cerebral artery: No significant stenosis. No aneurysm. Left posterior cerebral artery: No significant stenosis. No aneurysm. Left vertebral artery: Unremarkable. Basilar artery: No significant stenosis. No aneurysm. IMPRESSION: No significant stenosis. EXAM: CT Angiography Neck With Intravenous Contrast CLINICAL HISTORY: ITS.REASON CT Reason: dizziness, trouble word finding TECHNIQUE: Routine carotid CT angiography protocol was performed with intravenous contrast. NASCET criteria using the distal ICAs for comparison were used for evaluation of stenoses. CTDI is 57.4 mGy and DLP is 1184.9 mGy-cm. This CT exam was performed using one or more of the following dose reduction techniques: automated exposure control, adjustment of the mA and/or kV according to patient size, and/or use of iterative reconstruction technique. MIP reconstructed images were created and reviewed. COMPARISON: None. FINDINGS: VASCULATURE: Right common carotid artery: No significant stenosis. No dissection. Right internal carotid artery: No significant stenosis. No dissection. Right vertebral artery: No significant stenosis. No dissection. Left common carotid artery: No significant stenosis. No dissection. Left internal carotid artery: No significant stenosis. No dissection. Left vertebral artery: No significant stenosis. No dissection. NECK: Lung apices: Clear. CAROTID STENOSIS REFERENCE USING NASCET CRITERIA: % ICA stenosis = (1 - narrowest ICA diameter/diameter of distal cervical ICA) x 100. Mild - <50% stenosis. Moderate - 50-69% stenosis. Severe - 70-94% stenosis. Near occlusion - 95-99% stenosis. Occluded - 100% stenosis. IMPRESSION: No significant stenosis.
--- NOTE | 2024-11-24 07:16 | CT ---
EXAMINATION TYPE: CT brain wo con DATE OF EXAM: 11/24/2024 5:19 AM COMPARISON: 01/07/2010 CLINICAL INDICATION: Male, 44 years old with history of dizziness, trouble word finding, TECHNIQUE: CT of the brain is performed utilizing 3 mm thick sections through the posterior fossa and 3 mm thick sections through the remaining calvarium. Study is performed within 24 hours of arrival to the hospital. Contrast used: mL of , (none if empty) CT DLP: 42.0 mGycm, Automated exposure control for dose reduction was used. FINDINGS: No abnormal hyperdensity is present to suggest an acute intracranial hemorrhage. No mass lesion is evident. No acute infarcts are evident. Ventricles and sulci are appropriate for the patient age. Paranasal sinuses and mastoid air cells within the [id number] are clear. IMPRESSION: 1. No acute intracranial process. Follow up MRI can be performed as clinically indicated. [facility], , 11/24/2024 7:13 AM
--- NOTE | 2024-11-24 07:18 | XR ---
EXAMINATION TYPE: XR chest 2V DATE OF EXAM: 11/24/2024 4:23 AM COMPARISON: None. CLINICAL INDICATION: Male, 44 years old with history of dizziness, left axillary pain, TECHNIQUE: XR chest 2V view(s) obtained. FINDINGS: The heart size is normal. The pulmonary vasculature is normal. The lungs are clear. IMPRESSION: 1. No acute pulmonary process. [facility], , 11/24/2024 7:16 AM
[2024-11-24 07:24] LABS: Appearance,Urine Clear (Clear); Bilirubin,Urine Negative (Negative); Blood,Urine Negative (Negative); Color,Urine Light Yellow; Glucose,Urine (UA) 3+ (Negative); Ketones,Urine Negative (Negative); Leukocyte Esterase,Urine Negative (Negative); Nitrite,Urine Negative (Negative); PH, Urine 6.5 (5.0-8.0); Protein,Urine Negative (Negative); Specific Gravity,Urine 1.038 (1.001-1.035)
[2024-11-24 07:29] LABS: Platelet Count 96 k/uL (150-450)
[2024-11-24] MEDS ORDERED: DICYCLOMINE 20 MG TAB PO PRN (09:47)
[2024-11-24] MEDS ORDERED: DEXTROSE 50% SYRINGE 50 ML IVP PRN ×2 (09:48)
[2024-11-24 10:55] LABS: Glucose,Whole Blood 251 mg/dL (70-110)
[2024-11-24] MEDS: INSULIN LISPRO (HumaLOG) 100 UNIT/ML 10 mL VL SQ SCH (11:55)
[2024-11-24] MEDS: ATORVASTATIN 40 MG TAB PO SCH (11:55)
--- NOTE | 2024-11-24 13:03 | P.HPIM ---
History of Present Illness H&P Date: 11/24/24 History of present illness; patient is a 44-year-old gentleman with past medical history significant for hypertension, hyperlipidemia who presented the ER because of complaints of not feeling his usual self. Patient stated that he was with his significant other in the [employer] when he felt that he was a hard time expressing out his words. Patient felt dizzy and weak. There was no noticeable weakness of any extremity. Patient felt confused and was unable to answer questions. There was no slurring of speech. There was no facial droop. There was no complaint of numbness on extremity. Patient went to bed and woke up with similar symptoms and decided to come the ER. Patient also mentioned that he was having some pain underneath his left axilla, nonradiating, no aggravating or relieving factors associated with this axillary pain. Denies any shortness of breath. Denies any orthopnea or PND Initial lab work done in the ER showed WBC 3.9, hemoglobin 13.9, platelet count 96, sodium 139, potassium 4.1, BUN 12, creatinine 0.85, glucose 200, calcium 8.6, magnesium 1.9, AST 49, ALT 59, troponin 0.012, UA negative for infection Influenza A not detected Influenza B not detected RSV not detected COVID-19 not detected EKG done in the ER showed heart rate of90 , no ST segment elevation or depression seen, no T-wave inversions seen. Chest x-ray done in the ER showed no acute pulmonary process CT head done showed no acute intracranial process CTA head and neck done showed no significant stenosis, aneurysm or thrombus in the intracranial circulation Patient admitted to internal medicine service REVIEW OF SYSTEMS: CONSTITUTIONAL: No fever, no malaise, no fatigue. HEENT: No recent visual problems or hearing problems. Denied any sore throat. CARDIOVASCULAR: As mentioned above PULMONARY: Mentioned above GASTROINTESTINAL: No diarrhea, no nausea, no vomiting, no abdominal pain. NEUROLOGICAL: As mentioned above HEMATOLOGICAL: Denies any bleeding or petechiae. GENITOURINARY: Denies any burning micturition, frequency, or urgency. MUSCULOSKELETAL/RHEUMATOLOGICAL: Denies any joint pain, swelling, or any muscle pain. ENDOCRINE: Denies any polyuria or polydipsia. The rest of the 14-point review of systems is negative. PHYSICAL EXAMINATION: GENERAL: The patient is alert and oriented x3, not in any acute distress. Well developed, well nourished. HEENT: Pupils are round and equally reacting to light. EOMI. No scleral icterus. No conjunctival pallor. Normocephalic, atraumatic. No pharyngeal erythema. No thyromegaly. CARDIOVASCULAR: S1 and S2 present. No murmurs, rubs, or gallops. PULMONARY: Chest is clear to auscultation, no wheezing or crackles. ABDOMEN: Soft, nontender, nondistended, normoactive bowel sounds. No palpable organomegaly. MUSCULOSKELETAL: No joint swelling or deformity. EXTREMITIES: No cyanosis, clubbing, or pedal edema. NEUROLOGICAL: Gross neurological examination did not reveal any focal deficits. SKIN: No rashes. Assessment and plan TIA Left axilla pain Hyperammonemia Hypertension Hyperlipidemia History of [place] Monitor vital signs Monitor CBC Monitor CMP Continue telemetry monitoring Trend troponin Ordered D-dimer Ordered lactulose Resume home med Consult neurology Labs and medication were reviewed.. Continue same treatment. Continue with symptomatic treatment. Resume home medication. Monitor labs and vitals. DVT and GI prophylaxis. Further recommendations as per clinical course of the patient Dictation was produced using [email or web address] dictation software. please excuse any grammatical, word or spelling errors. Past Medical History Past Medical History: Diabetes Mellitus, GERD/Reflux, Hyperlipidemia, Liver Disease Additional Past Medical History / Comment(s): PRESTON - nonalcoholic steatohepatitis, Hx. H.Pylori,Type II DM History of Any Multi-Drug Resistant Organisms: None Reported Past Surgical History: Appendectomy Additional Past Surgical History / Comment(s): penile surg at the age of 5 (unsure what was the procedure was), liver biopsy, EGD/colonoscopy Past Anesthesia/Blood Transfusion Reactions: No Reported Reaction Additional Past Anesthesia/Blood Transfusion Reaction / Comment(s): HAS NEVER GENERAL ANESTHESIA. Past Psychological History: Anxiety Smoking Status: Vaper Past Alcohol Use History: None Reported Past Drug Use History: None Reported - Past Family History Father Family Medical History: Liver Disease Additional Family Medical History / Comment(s): ETOH cirrhosis Medications and Allergies Home Medications Medication Instructions Recorded Confirmed Type Dulaglutide [Trulicity] 4.5 mg SQ FR 11/23/22 11/24/24 History Glimepiride [Amaryl] 1 mg PO DAILY 11/23/22 11/24/24 History Insulin Glargine,Hum.rec.anlog 50 units SQ DAILY 08/23/24 11/24/24 History [Lantus Solostar Pen] Atorvastatin [Lipitor] 40 mg PO DAILY 11/24/24 11/24/24 History Cholestyramine (with Sugar) 4 gm PO BID-W/MEALS 11/24/24 11/24/24 History [Questran] Dicyclomine [Bentyl] 20 mg PO QID PRN 11/24/24 11/24/24 History Emtricitabine/Tenofovir (Tdf) 1 tab PO DAILY 11/24/24 11/24/24 History [Emtricitabine-Tenofv 200-300Mg] Ergocalciferol (Vitamin D2) 1,250 mcg PO MO 11/24/24 11/24/24 History [Drisdol (50,000 Iu)] Famotidine [Pepcid] 20 mg PO BID 11/24/24 11/24/24 History Ibuprofen [Motrin] 800 mg PO BID PRN 11/24/24 11/24/24 History Lactulose 10 gm PO TID 11/24/24 11/24/24 History Meclizine [Antivert] 25 mg PO TID PRN 11/24/24 11/24/24 History Meloxicam [Mobic] 7.5 mg PO BID 11/24/24 11/24/24 History Omeprazole 20 mg PO AC-BID 11/24/24 11/24/24 History hydrOXYzine HCL [Atarax] 25 mg PO TID PRN 11/24/24 11/24/24 History lisinopriL [Zestril] 2.5 mg PO DAILY 11/24/24 11/24/24 History metFORMIN HCL 500 mg PO BID 11/24/24 11/24/24 History Allergies Allergy/AdvReac Type Severity Reaction Status Date / Time No Known Allergies Allergy Verified 11/24/24 09:09 Physical Exam Vitals: Vital Signs Temp Pulse Resp BP Pulse Ox 11/24/24 08:00 68 16 111/75 98 11/24/24 06:00 78 19 99/60 96 11/24/24 05:00 84 110/75 98 11/24/24 04:00 95 111/74 98 11/24/24 02:14 98.6 F 103 H 16 123/86 97 Intake and Output 11/23/24 11/24/24 11/24/24 22:59 06:59 14:59 Other: Weight 113.398 kg Results CBC & Chem 7: 11/24/24 02:30 11/24/24 02:30 Labs: Abnormal Lab Results - Last 24 Hours (Table) 11/24/24 11/24/24 11/24/24 Range/Units 02:30 02:30 02:30 Plt Count 96 L (150-450) k/uL Lymphocytes # 0.9 L (1.0-4.8) k/uL Glucose 200 H (74-99) mg/dL POC Glucose (mg/dL) (70-110) mg/dL ALT 59 H (4-49) U/L Ammonia 54 H (<30) umol/L Ur Specific [place] (1.001-1.035) Urine Glucose (UA) (Negative) 11/24/24 11/24/24 Range/Units 03:28 05:00 Plt Count (150-450) k/uL Lymphocytes # (1.0-4.8) k/uL Glucose (74-99) mg/dL POC Glucose (mg/dL) 232 H (70-110) mg/dL ALT (4-49) U/L Ammonia (<30) umol/L Ur Specific [place] 1.038 H (1.001-1.035) Urine Glucose (UA) 3+ H (Negative)
[2024-11-24] MEDS: LACTULOSE 20 GM/30 ML CUP PO SCH (15:52)
[2024-11-24 17:00] LABS: Glucose,Whole Blood 228 mg/dL (70-110)
[2024-11-24] MEDS: PANTOPRAZOLE 40 MG TABLET PO SCH (17:09)
[2024-11-24] MEDS: CHOLESTYRAMINE (WITH SUGAR) 4 GM PACKET PO SCH (17:10)
[2024-11-24] MEDS: MECLIZINE 25 MG TAB PO PRN (17:13)
[2024-11-24 20:25] LABS: Glucose,Whole Blood 238 mg/dL (70-110)
[2024-11-24] MEDS ORDERED: ACETAMINOPHEN TAB 325 MG TAB PO PRN (21:07)
[2024-11-25 02:54] LABS: Basophils % (A) 1 %; Eosinophils # (A) 0.1 k/uL (0-0.7); Eosinophils % (A) 3 %; HCT 38.5 % (39.0-53.0); HGB 13.3 gm/dL (13.0-17.5); Lymphocytes # (A) 0.7 k/uL (1.0-4.8); Lymphocytes % (A) 22 %; MCH 29.2 pg (25.0-35.0); MCHC 34.5 g/dL (31.0-37.0); MCV 84.7 fL (80.0-100.0); Mean Platelet Volume 8.2; Monocytes # (A) 0.2 k/uL (0-1.0); Monocytes % (A) 5 %; Neutrophils # (A) 2.2 k/uL (1.3-7.7); Neutrophils % (A) 69 %; RBC 4.54 m/uL (4.30-5.90); RDW 13.8 % (11.5-15.5); WBC 3.2 k/uL (3.8-10.6)
[2024-11-25 02:57] LABS: Platelet Count 84 k/uL (150-450)
[2024-11-25 03:01] LABS: ALT 53 U/L (4-49); AST 43 U/L (17-59); African American GFR (CKD) >90 (>60 ml/min/1.73 sqM); Albumin 3.7 g/dL (3.5-5.0); Albumin/Globulin Ratio 1.2; Alkaline Phosphatase 98 U/L (38-126); Anion Gap 7 mmol/L; Blood Urea Nitrogen 12 mg/dL (9-20); Calcium 8.7 mg/dL (8.4-10.2); Carbon Dioxide 28 mmol/L (22-30); Chloride 101 mmol/L (98-107); Glucose 230 mg/dL (74-99); Non-African American GFR(CKD) >90 (>60 ml/min/1.73 sqM); Potassium 3.9 mmol/L (3.5-5.1); Sodium 136 mmol/L (137-145); Total Bilirubin 1.2 mg/dL (0.2-1.3); Total Protein 6.7 g/dL (6.3-8.2)
[2024-11-25 08:03] LABS: Glucose,Whole Blood 240 mg/dL (70-110)
[2024-11-25] MEDS: ASPIRIN 81 MG PO SCH (08:29)
[2024-11-25] MEDS: EMTRICITABINE/TENOFOVIR 200MG/300MG PO SCH (08:29)
[2024-11-25] MEDS: INSULIN GLARGINE (LANTUS) 100 UNIT/ML SYR SQ SCH (08:30)
--- NOTE | 2024-11-25 08:55 | P.CNNES ---
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 Patient states that last night he was at [facility] at around 8 PM. He grabbed something from the shelf and felt a spinning sensation, dizziness that lasted for about 30 seconds. He took a few steps and it happened again. Then he felt slightly groggy. His mother asked if he was okay. He states that his head was foggy, and he was talking slow. He felt slightly nauseous but no vomiting. Denies any headache. Denied any numbness or tingling focal weakness and he did feel slightly wobbly while walking. They came back home at around 11 PM and laid down. At home patient started having some speech difficulty, could not make sentences. He could not find the words. Checked his blood pressure was 170/111. He got up at 1:30 AM and his speech was still the same and blood pressure was still high. He could not focus what words to say. Therefore his mother brought him to the hospital. Vital signs on arrival blood pressure 123/86 pulse rate 103 temperature 98.6. Blood tests shows normal CBC, PT PTT, normal basic metabolic panel. AST 49, ALT 59. Ammonia 54. Troponin negative. UA negative. Influenza, RSV and coronavirus PCR negative. Chest x-ray showed no acute pulmonary process. EKG showed sinus rhythm. CT head showed no acute intracranial process. Follow-up MRI can be performed as clinically indicated. I personally reviewed CT head, agree with the findings. Home medications include Amaryl, Trulicity, insulin, Lipitor 40 mg, lactulose, lisinopril, metformin, meclizine, Pepcid. Patient has history of diabetes for about 7 years. Patient has history of [place] and hepatic cirrhosis. He takes blood pressure medication mainly for renal functions. He has hyperlipidemia. Patient vapes nicotine. No marijuana use. No alcohol. Patient not on any antiplatelets or anticoagulants. Patient states his speech difficulty resolved by 5 AM. At present he feels slightly nauseous, foggy brain but his speech is now fine. Review of Systems All pertinent positive and negative review of systems mentioned in the HPI. Past Medical History Past Medical History: Diabetes Mellitus, GERD/Reflux, Hyperlipidemia, Liver Disease Additional Past Medical History / Comment(s): PRESTON - nonalcoholic steatohepatitis, Hx. H.Pylori,Type II DM History of Any Multi-Drug Resistant Organisms: None Reported Past Surgical History: Appendectomy Additional Past Surgical History / Comment(s): penile surg at the age of 5 (unsure what was the procedure was), liver biopsy, EGD/colonoscopy Past Anesthesia/Blood Transfusion Reactions: No Reported Reaction Additional Past Anesthesia/Blood Transfusion Reaction / Comment(s): HAS NEVER GENERAL ANESTHESIA. Past Psychological History: Anxiety Smoking Status: Vaper Past Alcohol Use History: None Reported Past Drug Use History: None Reported - Past Family History Father Family Medical History: Liver Disease Additional Family Medical History / Comment(s): ETOH cirrhosis Medications and Allergies Home Medications Medication Instructions Recorded Confirmed Type Dulaglutide [Trulicity] 4.5 mg SQ FR 11/23/22 11/24/24 History Glimepiride [Amaryl] 1 mg PO DAILY 11/23/22 11/24/24 History Insulin Glargine,Hum.rec.anlog 50 units SQ DAILY 08/23/24 11/24/24 History [Lantus Solostar Pen] Atorvastatin [Lipitor] 40 mg PO DAILY 11/24/24 11/24/24 History Cholestyramine (with Sugar) 4 gm PO BID-W/MEALS 11/24/24 11/24/24 History [Questran] Dicyclomine [Bentyl] 20 mg PO QID PRN 11/24/24 11/24/24 History Emtricitabine/Tenofovir (Tdf) 1 tab PO DAILY 11/24/24 11/24/24 History [Emtricitabine-Tenofv 200-300Mg] Ergocalciferol (Vitamin D2) 1,250 mcg PO MO 11/24/24 11/24/24 History [Drisdol (50,000 Iu)] Famotidine [Pepcid] 20 mg PO BID 11/24/24 11/24/24 History Ibuprofen [Motrin] 800 mg PO BID PRN 11/24/24 11/24/24 History Lactulose 10 gm PO TID 11/24/24 11/24/24 History Meclizine [Antivert] 25 mg PO TID PRN 11/24/24 11/24/24 History Meloxicam [Mobic] 7.5 mg PO BID 11/24/24 11/24/24 History Omeprazole 20 mg PO AC-BID 11/24/24 11/24/24 History hydrOXYzine HCL [Atarax] 25 mg PO TID PRN 11/24/24 11/24/24 History lisinopriL [Zestril] 2.5 mg PO DAILY 11/24/24 11/24/24 History metFORMIN HCL 500 mg PO BID 11/24/24 11/24/24 History Allergies Allergy/AdvReac Type Severity Reaction Status Date / Time No Known Allergies Allergy Verified 11/24/24 09:09 Physical Examination - Vital Signs Vital Signs: Vital Signs Temp Pulse Resp BP Pulse Ox 11/24/24 11:00 78 20 130/68 98 11/24/24 09:00 86 20 120/68 98 11/24/24 08:00 68 16 111/75 98 11/24/24 06:00 78 19 99/60 96 11/24/24 05:00 84 110/75 98 11/24/24 04:00 95 111/74 98 11/24/24 02:14 98.6 F 103 H 16 123/86 97 Intake and Output 11/23/24 11/24/24 11/24/24 22:59 06:59 14:59 Other: Weight 113.398 kg Patient is a middle aged male, very pleasant, in no acute distress. Patient is alert awake oriented to time place and person. Speech and language functions are normal. Patient can name and repeat very well. No aphasia or dysarthria. Attention, concentration and fund of knowledge is adequate. On cranial nerve examination, pupils are equal, round and reacting to light, visual lemon are full on confrontation, with no neglect on double simultaneous stimulation. Extraocular muscles are intact with no nystagmus. Face is symmetric, tongue protrudes to the midline. Palatal elevation and sensation normal, hearing and shoulder shrug normal, facial sensation normal. On muscle strength testing, there mild right pronator drift, and the right shoulder is very painful because of rotator cuff issues. Otherwise the strength is normal in arms and legs distally and proximally. Right shoulder was not checked because of history of rotator cuff tear. Deep tendon reflexes are symmetric 2+ all over and plantars downgoing. Sensory to touch is equal with no neglect on double simultaneous stimulation. Cerebellar function showed no ataxia for [id number] testing. No dysdiadochokinesia. No ataxia for [id number] testing on either side. Tone and bulk of muscles normal. Gait deferred.. On general examination, there is no carotid bruit or murmur, S1-S2 audible. Chest is clear on consultation. Abdomen is soft nontender. No organomegaly, bowel sounds present. Peripheral pulses are present. No peripheral edema. Results - Laboratory Findings CBC and BMP: 11/25/24 02:35 11/25/24 02:35 Abnormal Lab Findings: Abnormal Labs 11/24/24 11/24/24 11/24/24 02:30 02:30 02:30 Plt Count 96 L Lymphocytes # 0.9 L Glucose 200 H POC Glucose (mg/dL) ALT 59 H Ammonia 54 H Ur Specific [place] Urine Glucose (UA) 11/24/24 11/24/24 11/24/24 03:28 05:00 10:52 Plt Count Lymphocytes # Glucose POC Glucose (mg/dL) 232 H 251 H ALT Ammonia Ur Specific [place] 1.038 H Urine Glucose (UA) 3+ H Assessment and Plan Assessment: * Probable TIA manifesting with dizziness, difficulty speaking/slurring. Symptoms resolved in about 9 hours. At present symptoms have resolved, although still feels slightly nauseous. Current NIH stroke scale is 0. * Diabetes * Hyperlipidemia * Chronic liver disease with cirrhosis * Right rotator cuff tear * Thrombocytopenia, due to chronic liver disease * Vapes nicotine Plan: MRI of the brain without contrast, evaluate for acute CVA 2-D echo with bubble study to rule out PFO CTA head and neck showed: No significant stenosis of the intracranial or e xtracranial vascular system. No aneurysm or occlusion. Fasting a.m. lipid panel Recheck Hemoglobin A1c. Last A1c 7.4 on 09/11/2024 Blood pressure is well-controlled. Patient has received aspirin 324 mg in the ER. Patient has thrombocytopenia. We will place patient on single antiplatelet agent with aspirin 81 mg daily. Neuro checks every 4 hours. Telemetry monitoring rule out any arrhythmia PT, OT, speech therapy DVT prophylaxis: SCDs. Avoid heparin due to thrombocytopenia. Recommend abstain from nicotine vaping. Neurology will continue to follow. Thank you for the consult.
[2024-11-25 10:01] LABS: Chol/HDL Ratio 4.57 Ratio; LDL Cholesterol,Calculated 46.2 mg/dL (0.0-131.0)
[2024-11-25 12:01] LABS: Glucose,Whole Blood 208 mg/dL (70-110)
--- NOTE | 2024-11-25 13:29 | P.PN ---
Subjective Progress Note Date: 11/25/24 patient is a 44-year-old gentleman with past medical history significant for hypertension, hyperlipidemia who presented the ER because of complaints of not feeling his usual self. Patient stated that he was with his significant other in the [employer] when he felt that he was a hard time expressing out his words. Patient felt dizzy and weak. There was no noticeable weakness of any extremity. Patient felt confused and was unable to answer questions. There was no slurring of speech. There was no facial droop. There was no complaint of numbness on extremity. Patient went to bed and woke up with similar symptoms and decided to come the ER. Patient also mentioned that he was having some pain underneath his left axilla, nonradiating, no aggravating or relieving factors associated with this axillary pain. Denies any shortness of breath. Denies any orthopnea or PND Initial lab work done in the ER showed WBC 3.9, hemoglobin 13.9, platelet count 96, sodium 139, potassium 4.1, BUN 12, creatinine 0.85, glucose 200, calcium 8.6, magnesium 1.9, AST 49, ALT 59, troponin 0.012, UA negative for infection Influenza A not detected Influenza B not detected RSV not detected COVID-19 not detected EKG done in the ER showed heart rate of90 , no ST segment elevation or depression seen, no T-wave inversions seen. Chest x-ray done in the ER showed no acute pulmonary process CT head done showed no acute intracranial process CTA head and neck done showed no significant stenosis, aneurysm or thrombus in the intracranial circulation Patient admitted to internal medicine service 11/25. Patient seen and examined. Lipid panel done showed LDL 46, total cholesterol 95. Denies any slurred speech. Denies any weakness of any extremity. Patient ambulating without any issues. Vital signs stable REVIEW OF SYSTEMS: CONSTITUTIONAL: No fever, no malaise,. CARDIOVASCULAR: No chest pain, no palpitations, no syncope. PULMONARY: No shortness of breath, no cough, GASTROINTESTINAL: No diarrhea, no nausea, no vomiting, no abdominal pain. NEUROLOGICAL: No headaches, no weakness, PHYSICAL EXAMINATION: GENERAL: The patient is alert and oriented x3, not in any acute distress. Well developed, well nourished. HEENT: Pupils are round and equally reacting to light. EOMI. No scleral icterus. No conjunctival pallor. Normocephalic, atraumatic. No pharyngeal erythema. No thyromegaly. CARDIOVASCULAR: S1 and S2 present. No murmurs, rubs, or gallops. PULMONARY: Chest is clear to auscultation, no wheezing or crackles. ABDOMEN: Soft, nontender, nondistended, normoactive bowel sounds. No palpable organomegaly. MUSCULOSKELETAL: No joint swelling or deformity. EXTREMITIES: No cyanosis, clubbing, or pedal edema. NEUROLOGICAL: Gross neurological examination did not reveal any focal deficits. SKIN: No rashes. Assessment and plan TIA Left axilla pain Hyperammonemia Hypertension Hyperlipidemia History of [place] Insulin-dependent diabetes mellitus Monitor vital signs Monitor CBC Monitor CMP Continue telemetry monitoring MRI brain ordered 2D echo ordered Ordered blood glucose monitoring, continue sliding scale insulin, continue current insulin regimen Continue aspirin, Lipitor Neurology following Labs and medication were reviewed.. Continue same treatment. Continue with symptomatic treatment. Resume home medication. Monitor labs and vitals. DVT and GI prophylaxis. Further recommendations as per clinical course of the patient Dictation was produced using [employer] dictation software. please excuse any grammatical, word or spelling errors. Objective - Vital Signs Vital signs: Vital Signs Temp 97.5 F L 11/25/24 08:40 Pulse 78 11/25/24 08:40 Resp 16 11/25/24 08:40 BP 106/70 11/25/24 08:40 Pulse Ox 96 11/25/24 08:40 FiO2 Intake & Output 11/24/24 11/25/24 11/25/24 18:59 06:59 18:59 Weight 113.398 kg - Labs CBC & Chem 7: 11/25/24 02:35 11/25/24 02:35 Labs: Abnormal Lab Results - Last 24 Hours (Table) 11/24/24 11/24/24 11/24/24 Range/Units 10:52 16:59 20:23 WBC (3.8-10.6) k/uL Hct (39.0-53.0) % Plt Count (150-450) k/uL Lymphocytes # (1.0-4.8) k/uL Sodium (137-145) mmol/L Glucose (74-99) mg/dL POC Glucose (mg/dL) 251 H 228 H 238 H (70-110) mg/dL Hemoglobin A1c (<=6.0) % ALT (4-49) U/L HDL Cholesterol (40.00-60.00) mg/dL 11/25/24 11/25/24 11/25/24 Range/Units 02:35 02:35 02:35 WBC 3.2 L (3.8-10.6) k/uL Hct 38.5 L (39.0-53.0) % Plt Count 84 L (150-450) k/uL Lymphocytes # 0.7 L (1.0-4.8) k/uL Sodium 136 L (137-145) mmol/L Glucose 230 H (74-99) mg/dL POC Glucose (mg/dL) (70-110) mg/dL Hemoglobin A1c 8.5 H (<=6.0) % ALT 53 H (4-49) U/L HDL Cholesterol 20.80 L (40.00-60.00) mg/dL 11/25/24 Range/Units 08:01 WBC (3.8-10.6) k/uL Hct (39.0-53.0) % Plt Count (150-450) k/uL Lymphocytes # (1.0-4.8) k/uL Sodium (137-145) mmol/L Glucose (74-99) mg/dL POC Glucose (mg/dL) 240 H (70-110) mg/dL Hemoglobin A1c (<=6.0) % ALT (4-49) U/L HDL Cholesterol (40.00-60.00) mg/dL
[2024-11-25] MEDS: IBUPROFEN 400 MG TAB PO PRN (17:05)
[2024-11-25 17:21] LABS: Glucose,Whole Blood 244 mg/dL (70-110)
[2024-11-25 20:01] LABS: Glucose,Whole Blood 213 mg/dL (70-110)
--- NOTE | 2024-11-25 23:09 | P.PN ---
Subjective Progress Note Date: 11/25/24 Patient was seen for follow-up. Patient's family members are present. No new focal symptoms. Patient laying comfortably in the bed. Objective - Vital Signs Vital signs: Vital Signs Temp 97.5 F L 11/25/24 08:40 Pulse 78 11/25/24 08:40 Resp 16 11/25/24 08:40 BP 106/70 11/25/24 08:40 Pulse Ox 96 11/25/24 08:40 FiO2 Intake & Output 11/24/24 11/25/24 11/25/24 18:59 06:59 18:59 Weight 113.398 kg - Exam Examination normal, nonfocal. - Labs CBC & Chem 7: 11/25/24 02:35 11/25/24 02:35 Labs: Abnormal Lab Results - Last 24 Hours (Table) 11/24/24 11/24/24 11/25/24 Range/Units 16:59 20:23 02:35 WBC (3.8-10.6) k/uL Hct (39.0-53.0) % Plt Count (150-450) k/uL Lymphocytes # (1.0-4.8) k/uL Sodium (137-145) mmol/L Glucose (74-99) mg/dL POC Glucose (mg/dL) 228 H 238 H (70-110) mg/dL Hemoglobin A1c 8.5 H (<=6.0) % ALT (4-49) U/L HDL Cholesterol (40.00-60.00) mg/dL 11/25/24 11/25/24 11/25/24 Range/Units 02:35 02:35 08:01 WBC 3.2 L (3.8-10.6) k/uL Hct 38.5 L (39.0-53.0) % Plt Count 84 L (150-450) k/uL Lymphocytes # 0.7 L (1.0-4.8) k/uL Sodium 136 L (137-145) mmol/L Glucose 230 H (74-99) mg/dL POC Glucose (mg/dL) 240 H (70-110) mg/dL Hemoglobin A1c (<=6.0) % ALT 53 H (4-49) U/L HDL Cholesterol 20.80 L (40.00-60.00) mg/dL 02/23/25 Range/Units 12:00 WBC (3.8-10.6) k/uL Hct (39.0-53.0) % Plt Count (150-450) k/uL Lymphocytes # (1.0-4.8) k/uL Sodium (137-145) mmol/L Glucose (74-99) mg/dL POC Glucose (mg/dL) 208 H (70-110) mg/dL Hemoglobin A1c (<=6.0) % ALT (4-49) U/L HDL Cholesterol (40.00-60.00) mg/dL Assessment and Plan Assessment: * Probable TIA manifesting with dizziness, difficulty speaking/slurring. Symptoms resolved in about 9 hours. At present symptoms have resolved, although still feels slightly nauseous. Current NIH stroke scale is 0. Patient was not a candidate for TNK, as his NIH stroke scale was 0 in the ER, and he came outside the window for TNK. * Diabetes * Hyperlipidemia * Chronic liver disease with cirrhosis * Right rotator cuff tear * Thrombocytopenia, due to chronic liver disease * Vapes nicotine Plan: Await MRI of the brain without contrast, evaluate for acute CVA 2-D echo with bubble study to rule out PFO CTA head and neck showed: No significant stenosis of the intracranial or extracranial vascular system. No aneurysm or occlusion. Fasting a.m. lipid panel cholesterol 95, LDL 46, HDL 20, triglycerides 140. Continue Lipitor 40 mg daily. Hemoglobin A1c 8.5. Recommend optimizing control of diabetes to target A1c < 7.0. Blood pressure is well-controlled. Patient has received aspirin 324 mg in the ER. Patient has thrombocytopenia. We will place patient on single antiplatelet agent with aspirin 81 mg daily. Neuro checks every 4 hours. Telemetry monitoring rule out any arrhythmia PT, OT, speech therapy DVT prophylaxis: SCDs. Avoid heparin due to thrombocytopenia. Recommend abstain from nicotine vaping. Dr. Chirag Diane to start neurology service from morning.
[2024-11-26 05:40] LABS: Glucose,Whole Blood 241 mg/dL (70-110)
[2024-11-26 08:19] VITALS: BP 119/71; RESP 16
[2024-11-26] MEDS: metFORMIN 500 MG TAB PO SCH ×2 (11:30→12:09)
[2024-11-26] MEDS: GLIMEPIRIDE 1 MG TAB PO SCH (11:30)
--- NOTE | 2024-11-26 12:05 | P.PN ---
Subjective patient is a 44-year-old gentleman with past medical history significant for hypertension, hyperlipidemia who presented the ER because of complaints of not feeling his usual self. Patient stated that he was with his significant other in the [employer] when he felt that he was a hard time expressing out his words. Patient felt dizzy and weak. There was no noticeable weakness of any extremity. Patient felt confused and was unable to answer questions. There was no slurring of speech. There was no facial droop. There was no complaint of numbn ess on extremity. Patient went to bed and woke up with similar symptoms and decided to come the ER. Patient also mentioned that he was having some pain underneath his left axilla, nonradiating, no aggravating or relieving factors associated with this axillary pain. Denies any shortness of breath. Denies any orthopnea or PND Initial lab work done in the ER showed WBC 3.9, hemoglobin 13.9, platelet count 96, sodium 139, potassium 4.1, BUN 12, creatinine 0.85, glucose 200, calcium 8.6, magnesium 1.9, AST 49, ALT 59, troponin 0.012, UA negative for infection Influenza A not detected Influenza B not detected RSV not detected COVID-19 not detected EKG done in the ER showed heart rate of90 , no ST segment elevation or depression seen, no T-wave inversions seen. Chest x-ray done in the ER showed no acute pulmonary process CT head done showed no acute intracranial process CTA head and neck done showed no significant stenosis, aneurysm or thrombus in the intracranial circulation Patient admitted to internal medicine service 11/25. Patient seen and examined. Lipid panel done showed LDL 46, total cholesterol 95. Denies any slurred speech. Denies any weakness of any extremity. Patient ambulating without any issues. Vital signs stable 11/26 Patient is a pleasant 44 years old male who presents because of dizziness and there was concern of slurred speech per neurologist evaluation. Patient this morning is awake alert, mother at bedside. He had small episode of dizziness that lasted a few minutes earlier in the morning while he was lying down. Currently denies any specific dizziness or headache. Any blurred vision or slurred speech no weakness or numbness or tingling. He denies any other chest pain or dyspnea or any other new complaint His hemoglobin A1c was not controlled well with A1c is 8.5, continued on home dose of Lantus 50 mg, Amaryl 1 mg and metformin 500 mg we will going to increase it to 1000 mg. Patient has appointment with leasing property manager Dr. Leon in the near future that he intends to follow-up with. MRI of the brain is pending as well as echocardiogram We will ask staff to check orthostatic vitals Review of systems CONSTITUTIONAL: No fever, no malaise, no fatigue. HEENT: No recent visual problems or hearing problems. Denied any sore throat. CARDIOVASCULAR: No orthopnea, PND, no palpitations, no syncope. PULMONARY: No shortness of breath, no cough, no hemoptysis. GENITOURINARY: Denies any burning micturition, frequency, or urgency. MUSCULOSKELETAL/RHEUMATOLOGICAL: Denies any joint pain, swelling, or any muscle pain. ENDOCRINE: Denies any polyuria or polydipsia. Active Medications Generic Name Dose Route Start Last Admin Trade Name Freq PRN Reason Stop Dose Admin Acetaminophen 325 mg 11/24/24 21:07 Acetaminophen Tab 325 Mg Tab PO Q6HR PRN Fever and/ or Pain Aspirin 81 mg 11/25/24 09:00 11/26/24 07:56 Aspirin 81 Mg PO 81 mg DAILY SHILPA Administration Atorvastatin Calcium 40 mg 11/24/24 10:00 11/26/24 07:56 Atorvastatin 40 Mg Tab PO 40 mg DAILY SHILPA Administration Cholestyramine Resin 4 gm 11/24/24 17:30 11/26/24 06:18 Cholestyramine (With Sugar) 4 Gm Packet PO 4 gm BID-W/MEALS SHILPA Administration Dextrose/Water 25 ml 11/24/24 09:48 Dextrose 50% Syringe 50 Ml IVP PER PROTOCOL PRN Hypoglycemia Protocol Dextrose/Water 50 ml 11/24/24 09:48 Dextrose 50% Syringe 50 Ml IVP PER PROTOCOL PRN Hypoglycemia Protocol Dicyclomine HCl 20 mg 11/24/24 09:47 Dicyclomine 20 Mg Tab PO QID PRN abdominal pain and diarhhea Emtricitabine/Tenofovir 1 each 11/25/24 09:00 11/26/24 07:56 Emtricitabine/Tenofovir 200mg/300mg PO 1 each DAILY SHILPA Administration Glimepiride 1 mg 11/26/24 11:30 11/26/24 11:30 Glimepiride 1 Mg Tab PO 1 mg DAILY SHILPA Administration Heparin Sodium (Porcine) 5,000 unit 11/26/24 16:00 Heparin Sodium,Porcine 5,000 Unit/Ml 1 Ml Vial SQ Q8HR SHILPA Ibuprofen 400 mg 11/24/24 21:06 11/25/24 17:05 Ibuprofen 400 Mg Tab PO 400 mg Q6HR PRN Administration Pain Insulin Glargine 50 unit 11/25/24 09:00 11/26/24 07:56 Insulin Glargine (Lantus) 100 Unit/Ml Syr SQ 50 unit DAILY SHILPA Administration Insulin Human Lispro 0 unit 11/24/24 12:30 11/26/24 06:18 Insulin Lispro (Humalog) 100 Unit/Ml 10 Ml Vl SQ 2 unit ACHS SHILPA Administration Protocol Lactulose 10 gm 11/24/24 16:00 11/26/24 07:56 Lactulose 20 Gm/30 Ml Cup PO 10 gm TID SHILPA Administration Meclizine HCl 25 mg 11/24/24 09:47 11/24/24 17:13 Meclizine 25 Mg Tab PO 25 mg TID PRN Administration Vertigo Metformin HCl 1,000 mg 11/26/24 12:15 Metformin 500 Mg Tab PO BID-W/MEALS SHILPA Pantoprazole Sodium 40 mg 11/24/24 17:30 11/26/24 06:18 Pantoprazole 40 Mg Tablet PO 40 mg AC-BID SHILPA Administration Objective - Vital Signs Vital signs: Vital Signs Temp 97.7 F 11/26/24 07:15 Pulse 97 11/26/24 07:15 Resp 16 11/26/24 07:15 BP 119/71 11/26/24 07:15 Pulse Ox 96 11/26/24 07:15 FiO2 Intake & Output 11/25/24 11/26/24 11/26/24 18:59 06:59 18:59 Intake Total 100 Balance 100 Intake: Oral 100 Other: # Voids 3 3 # Bowel Movements 1 - Exam GENERAL: The patient is alert and oriented x3, not in any acute distress. Well developed, well nourished. HEENT: Pupils are round and equally reacting to light. EOMI. No scleral icterus. No conjunctival pallor. Normocephalic, atraumatic. No pharyngeal erythema. No thyromegaly. CARDIOVASCULAR: S1 and S2 present. No murmurs, rubs, or gallops. PULMONARY: Chest is clear to auscultation, no wheezing , no crackles. ABDOMEN: Soft, nontender, nondistended, normoactive bowel sounds. No palpable organomegaly. MUSCULOSKELETAL: No joint swelling or deformity. EXTREMITIES: No cyanosis, clubbing, or pedal edema. NEUROLOGICAL: Gross neurological examination did not reveal any focal deficits. SKIN: No rashes. no petechiae. - Labs CBC & Chem 7: 11/25/24 02:35 11/25/24 02:35 Labs: Abnormal Lab Results - Last 24 Hours (Table) 11/25/24 11/25/24 11/25/24 Range/Units 12:00 17:19 19:58 POC Glucose (mg/dL) 208 H 244 H 213 H (70-110) mg/dL 11/26/24 Range/Units 05:36 POC Glucose (mg/dL) 241 H (70-110) mg/dL Assessment and Plan Assessment: TIA, transient period of confusion and possible some period of slower speech Hyperammonemia Hypertension Hyperlipidemia History of [place] Insulin-dependent diabetes mellitus, uncontrolled with hyperglycemia Obesity with BMI of 35.9 Plan: Follow-up MRI of the brain Follow-up echocardiogram Neurology consult Aspirin 81 mg already added Continue with diabetes medication increase metformin to 1000 twice daily. P atient will follow-up with his leasing property manager as an outpatient Will check orthostatic vitals Further recommendation based on the clinical course GI prophylaxis: Protonix DVT prophylaxis: Subcu heparin
[2024-11-26 12:14] LABS: Glucose,Whole Blood 223 mg/dL (70-110)
--- NOTE | 2024-11-26 12:24 | CA ---
Transthoracic Echo Report Name: Greg Caro Age: 44 Gender: M : 1980 Exam Date: 11/26/2024 08:47 Exam Location: [facility] Ht (in): 70 Wt (lb): 250 Ordering Physician: Dayo Downing MD Attending/Referring Phys: Range Examiner Denisha Deshpande RDCS Procedure CPT: Indications: tia Cardiac Hx: Technical Quality: Fair Contrast 1: Agitated Saline Total Dose (mL): 2 Contrast 2: Total Dose (mL): MEASUREMENTS (Male / Female) Normal Values 2D ECHO LV Diastolic Diameter PLAX 4.7 cm 4.2 - 5.9 / 3.9 - 5.3 cm LV Systolic Diameter PLAX 3.1 cm IVS Diastolic Thickness 1.4 cm 0.6 - 1.0 / 0.6 - 0.9 cm LVPW Diastolic Thickness 1.4 cm 0.6 - 1.0 / 0.6 - 0.9 cm LV Relative Wall Thickness 0.6 RV Internal Dim ED PLAX 2.1 cm LA Systolic Diameter LX 4.7 cm 3.0 - 4.0 / 2.7 - 3.8 cm LV Diastolic Volume MOD BP 69.5 cm??? 67 - 155 / 56 - 104 cm??? LV Systolic Volume MOD BP 25.5 cm??? 22 - 58 / 19 - 49 cm??? LV Ejection Fraction MOD BP 63.3 % >= 55 % LV Cardiac Index MOD BP 1680.1 cm???/min???m??? LV Diastolic Volume MOD 4C 80.3 cm??? LV Systolic Volume MOD 4C 34.1 cm??? LV Ejection Fraction MOD 4C 57.5 % LV Cardiac Index MOD 4C 1763.0 cm???/min???m??? LV Diastolic Length 4C 7.3 cm LV Systolic Length 4C 6.1 cm LV Diastolic Volume MOD 2C 60.5 cm??? LV Systolic Volume MOD 2C 18.1 cm??? LV Ejection Fraction MOD 2C 70.0 % LV Cardiac Index MOD 2C 1617.5 cm???/min???m??? LV Diastolic Length 2C 7.3 cm LV Systolic Length 2C 5.7 cm LA Volume 61.9 cm??? 18 - 58 / 22 - 52 cm??? LA Volume Index 25.7 cm???/m??? 16 - 28 cm???/m??? M-MODE Aortic Root Diameter MM 3.2 cm LA Systolic Diameter MM 4.2 cm LA Ao Ratio MM 1.3 AV Cusp Separation MM 1.9 cm DOPPLER MV Area PHT 2.9 cm??? Mitral E Point Velocity 92.7 cm/s Mitral A Point Velocity 80.6 cm/s Mitral E to A Ratio 1.2 MV Deceleration Time 259.6 ms TR Peak Velocity 199.3 cm/s TR Peak Gradient 15.9 mmHg Right Ventricular Systolic Press 20.8 mmHg FINDINGS Left Ventricle Left ventricular ejection fraction is estimated at 55-60 %. Mildly increased septal wall thickness. Normal left ventricular systolic function with no obvious regional wall motion abnormalities. Left ventricular cavity size normal. Right Ventricle Normal right ventricular size and function. Right ventricular systolic pressure within normal limits. Right Atrium Mild right atrial dilatation. Negative agitated saline bubble study for right to left shunt. Left Atrium Moderately increased left atrial diameter. Mildly increased left atrial volume. Mitral Valve Structurally normal mitral valve. Mild mitral regurgitation. No mitral stenosis. Aortic Valve Trileaflet aortic valve. No aortic valve stenosis or regurgitation. Tricuspid Valve Structurally normal tricuspid valve. Mild tricuspid regurgitation. No tricuspid stenosis. Pulmonic Valve Structurally normal pulmonic valve. Trace pulmonic regurgitation. No pulmonic stenosis. Pericardium No pericardial or pleural effusion. Aorta Normal size aortic root and proximal ascending aorta. CONCLUSIONS Normal LV systolic function Mild mitral regurgitation Negative agitated saline study Consider transesophageal echo for definitive evaluation Previewed by: Dr. Blair Peña MD (Electronically Signed) Final Date: 26 November 2024 12:23
[2024-11-26 14:35] VITALS: PULSE 79; TEMP 98.5
--- NOTE | 2024-11-26 15:31 | MR ---
EXAMINATION TYPE: MR brain wo con DATE OF EXAM: 11/26/2024 3:22 PM COMPARISON: None. CLINICAL INDICATION: Male, 44 years old with history of Stroke/TIA, stroke/TIA TECHNIQUE: Multiplanar, multiecho imaging on a 3.0 Dede magnet is performed through the brain. Stud y is performed within 24 hours of arrival to the hospital.Multiplanar, multiecho imaging on a 3.0 Sherine la magnet is performed through the knee. IV Contrast: mL (None, if empty) FINDINGS: The craniovertebral junction is normal. The pituitary is normal. Diffusion-weighted imaging is performed. No abnormal hyperintensity is present to suggest an acute i ntracranial infarct or acute ischemic change. Signal through the brain appears normal. Ventricles and sulci are appropriate for the patient age. IMPRESSION: 1. No suspicious acute intracranial changes. [facility], , 11/26/2024 3:28 PM
[2024-11-26] MEDS ORDERED: HEPARIN SODIUM,PORCINE 5,000 UNIT/ML 1 ML VIAL SQ SCH (16:00)
[2024-11-26 17:16] LABS: Glucose,Whole Blood 222 mg/dL (70-110)
--- NOTE | 2024-11-26 18:03 | P.PN ---
Subjective Progress Note Date: 11/26/24 Seeing the patient for the first time during this hospital admission. Please refer to Dr. Downing's note for further details. Patient states he presents to hospital because of dizziness and episode of confusion. He feels back to baseline. Denies being on any antiplatelet prior to this. Objective - Vital Signs Vital signs: Vital Signs Temp 98.5 F 11/26/24 13:40 Pulse 79 11/26/24 13:40 Resp 16 11/26/24 13:40 BP 119/71 11/26/24 13:40 Pulse Ox 98 11/26/24 13:40 FiO2 Intake & Output 11/25/24 11/26/24 11/26/24 18:59 06:59 18:59 Intake Total 218 Balance 218 Intake: Oral 218 Other: # Voids 3 3 1 # Bowel Movements 1 - Exam General: Patient sitting in a reclining chair and is not in acute distress Neuro: Patient is awake alert oriented to self place and time. Is following simple commands. No aphasia no neglect Visual lemon are full to confrontation. Extraocular moods intact no nystagmus. No facial weakness. No dysarthria The motor: Strength in the right upper extremity is somewhat limited proximally because of his shoulder injury that remote otherwise strength is 5 out of 5 throughout Cerebellar normal finger-nose bilaterally - Labs CBC & Chem 7: 11/25/24 02:35 11/25/24 02:35 Labs: Abnormal Lab Results - Last 24 Hours (Table) 11/25/24 11/26/24 11/26/24 Range/Units 19:58 05:36 12:13 POC Glucose (mg/dL) 213 H 241 H 223 H (70-110) mg/dL 11/26/24 Range/Units 17:14 POC Glucose (mg/dL) 222 H (70-110) mg/dL Assessment and Plan Assessment: * Probable TIA manifesting with dizziness, difficulty speaking/slurring. Symptoms resolved in about 9 hours. At present symptoms have resolved, although still feels slightly nauseous. Current NIH stroke scale is 0. Patient was not a candidate for TNK, as his NIH stroke scale was 0 in the ER, and he came outside the window for TNK----MRI Brain is unremarkable. * Diabetes * Hyperlipidemia * Chronic liver disease with cirrhosis * Right rotator cuff tear * Thrombocytopenia, due to chronic liver disease * Vapes nicotine Plan: MRI of the brain: No suspicious acute intracranial changes. 2-D echo with bubble study to rule out PFO: Normal left ventricular systolic function. Negative agitated saline study. CTA head and neck showed: No significant stenosis of the intracranial or extracranial vascular system. No aneurysm or occlusion. Fasting a.m. lipid panel cholesterol 95, LDL 46, HDL 20, triglycerides 140. Continue Lipitor 40 mg daily. Hemoglobin A1c 8.5. Recommend optimizing control of diabetes to target A1c < 7.0. Blood pressure is well-controlled. Patient has received aspirin 324 mg in the ER. Patient has thrombocytopenia. We will place patient on single antiplatelet agent with aspirin 81 mg daily. Neuro checks every 4 hours. Telemetry monitoring rule out any arrhythmia PT, OT, speech therapy DVT prophylaxis: SCDs. Avoid heparin due to thrombocytopenia. Recommend abstain from nicotine vaping. I recommend the patient to follow-up with a neurologist as an outpatient within 2 to 3 weeks. Otherwise no additional neurological workup. Will sign off. Please reconsult if needed. Time with Patient: Less than 30
--- NOTE | 2024-11-26 22:48 | P.DS ---
Providers Date of admission: 11/24/24 07:06 Attending physician: Suyapa Cedillo Consults: 11/24/24 07:06 Consult Physician Routine Consulting Provider: Dayo Downing Consult Reason/Comments: TIA Do you want consulting provider notified?: Yes, Notify in am Primary care physician: Irvin Hernandez [facility] Course: Please refer to progress note from today for more details After rounding patient had MRI of the brain which was unremarkable Neurologist cleared the patient for discharge Patient remains asymptomatic with no more dizziness or any other new complaint We checked orthostatic vitals which were negative as well. Patient was cleared for discharge by neurology service Patient will be discharged on aspirin 81 mg Problems and management plan were discussed with the patient and he verbalized understanding and acceptance Patient was found stable and can be discharged home in guarded prognosis however he needs follow-up as an outpatient. Patient was instructed to follow up with PCP within one week and patient agrees Also patient was referred to tariff supervisor Dr. RUSSELL for his polycythemia, patient agrees Patient referred to neurologist for follow-up in 2 weeks and he agrees Time spent more than 35 minutes Patient Condition at Discharge: Stable Plan - Discharge Summary Discharge Rx Participant: No New Discharge Prescriptions: New Aspirin 81 mg PO DAILY #30 tab Continue Insulin Glargine,Hum.rec.anlog [Lantus Solostar Pen] 50 units SQ DAILY Atorvastatin [Lipitor] 40 mg PO DAILY Lactulose 10 gm PO TID Omeprazole 20 mg PO AC-BID lisinopriL [Zestril] 2.5 mg PO DAILY Emtricitabine/Tenofovir (Tdf) [Emtricitabine-Tenofv 200-300Mg] 1 tab PO DAILY metFORMIN HCL 500 mg PO BID Glimepiride [Amaryl] 1 mg PO DAILY Dulaglutide [Trulicity] 4.5 mg SQ FR Dicyclomine [Bentyl] 20 mg PO QID PRN PRN Reason: abdominal pain and diarhhea Ergocalciferol (Vitamin D2) [Drisdol (50,000 Iu)] 1,250 mcg PO MO Cholestyramine (with Sugar) [Questran Packet] 4 gm PO BID-W/MEALS hydrOXYzine HCL [Atarax] 25 mg PO TID PRN PRN Reason: ANXIETY/ITCHING Meclizine [Antivert] 25 mg PO TID PRN PRN Reason: Vertigo Famotidine [Pepcid] 20 mg PO BID Discontinued Meloxicam [Mobic] 7.5 mg PO BID Ibuprofen [Motrin] 800 mg PO BID PRN PRN Reason: Pain Or Fever > 100.5 Discharge Medication List Dulaglutide [Trulicity] 4.5 mg SQ FR 11/23/22 [History] Glimepiride [Amaryl] 1 mg PO DAILY 11/23/22 [History] Insulin Glargine,Hum.rec.anlog [Lantus Solostar Pen] 50 units SQ DAILY 08/23/24 [History] Atorvastatin [Lipitor] 40 mg PO DAILY 11/24/24 [History] Cholestyramine (with Sugar) [Questran Packet] 4 gm PO BID-W/MEALS 11/24/24 [History] Dicyclomine [Bentyl] 20 mg PO QID PRN 11/24/24 [History] Emtricitabine/Tenofovir (Tdf) [Emtricitabine-Tenofv 200-300Mg] 1 tab PO DAILY 11/24/24 [History] Ergocalciferol (Vitamin D2) [Drisdol (50,000 Iu)] 1,250 mcg PO MO 11/24/24 [History] Famotidine [Pepcid] 20 mg PO BID 11/24/24 [History] Lactulose 10 gm PO TID 11/24/24 [History] Meclizine [Antivert] 25 mg PO TID PRN 11/24/24 [History] Omeprazole 20 mg PO AC-BID 11/24/24 [History] hydrOXYzine HCL [Atarax] 25 mg PO TID PRN 11/24/24 [History] lisinopriL [Zestril] 2.5 mg PO DAILY 11/24/24 [History] metFORMIN HCL 500 mg PO BID 11/24/24 [History] Aspirin 81 mg PO DAILY #30 tab 11/26/24 [Rx] Follow up Appointment(s)/Referral(s): Irvin Hernandez MD [Primary Care Provider] - 1-2 days Jorge Hennessy MD [Medical Doctor] - 2 Weeks Tae Russell MD [STAFF PHYSICIAN] - 1 Week (blood disease doctor for your low blood celll count) Activity/Diet/Wound Care/Special Instructions: heart healthy diet activity is restricted till you see your doctor we recommend to check your glucose 4 times a day before each meal and at bed time , keep the results in a log book and bring it to your doctor upon your appointment date if your glucose is less than 70 or more than 400 then call 911 and come to emergency room Discharge Disposition: HOME SELF-CARE
== END 2024-11-26 18:23 | disposition home or self-care (01) ==
LOC: EC 02:13 → 6NMEDSUR 07:06
PROVIDERS: ADMIT Internal Medicine; ATTEND Internal Medicine
DX: R42 Dizziness and giddiness (principal); R47.81 Slurred speech; R53.1 Weakness; E72.20 Disorder of urea cycle metabolism, unspecified; D69.59 Other secondary thrombocytopenia; E11.65 Type 2 diabetes mellitus with hyperglycemia; D75.1 Secondary polycythemia; M79.622 Pain in left upper arm; I10 Essential (primary) hypertension; E78.5 Hyperlipidemia, unspecified; E66.9 Obesity, unspecified; K74.60 Unspecified cirrhosis of liver; K75.81 Nonalcoholic steatohepatitis (NASH); M75.101 Unspecified rotator cuff tear or rupture of right shoulder, not specified as traumatic; F17.290 Nicotine dependence, other tobacco product, uncomplicated; R29.700 NIHSS score 0; K21.9 Gastro-esophageal reflux disease without esophagitis; Z68.35 Body mass index [BMI] 35.0-35.9, adult; Z79.1 Long term (current) use of non-steroidal anti-inflammatories (NSAID); Z79.4 Long term (current) use of insulin; Z79.84 Long term (current) use of oral hypoglycemic drugs; Z79.899 Other long term (current) drug therapy
CPT/HCPCS: 96361; 96374; 96375; 99285; 36415; 93005; 93306; 85379; 80061; 80053 ×2; 82140; 83735; 84484; 85025 ×2; 85610; 85730; 81003; 83036; 87636; 71046; 70496; 70450; 70498; 70551; G0378 ×3; J2270; J2405; Q9967

== ENCOUNTER → 2024-12-04 | Outpatient (CLI) | payer OTHER ==
[2024-12-04 18:09] LABS: WBC 3.35 X 10*3/uL (4.50-10.00)
[2024-12-04 18:10] LABS: Basophils # (A) 0.03 X 10*3/uL (0.00-0.10); Basophils % (A) 0.9 %; Eosinophils # (A) 0.08 X 10*3/uL (0.04-0.35); Eosinophils % (A) 2.4 %; HCT 41.3 % (39.6-50.0); HGB 13.9 g/dL (13.0-17.0); Lymphocytes # (A) 0.85 X 10*3/uL (0.90-5.00); Lymphocytes % (A) 25.4 %; MCH 28.8 pg (27.0-32.0); MCHC 33.7 g/dL (32.0-37.0); MCV 85.7 FL (80.0-97.0); Mean Platelet Volume 10.2 FL (9.5-12.2); Monocytes # (A) 0.24 X 10*3/uL (0.20-1.00); Monocytes % (A) 7.2 %; NRBC Per 100 WBC 0 X 10*3/uL (0.00-0.01); Neutrophils # (A) 2.14 X 10*3/uL (1.80-7.70); Neutrophils % (A) 63.8 %; Platelet Count 95 X 10*3/uL (140-440); RBC 4.82 X 10*6/uL (4.40-5.60); RDW 13.5 % (11.5-14.5)
[2024-12-04 18:23] LABS: Blood Urea Nitrogen 10.2 mg/dL (9.0-27.0); Glucose 166 mg/dL (70-110)
[2024-12-04 18:24] LABS: ALT 64 U/L (10-49); AST 49 U/L (14-35); Albumin 4.2 g/dL (3.8-4.9); Albumin/Globulin Ratio 1.31 Ratio (1.60-3.17); Alkaline Phosphatase 111 U/L (41-126); Carbon Dioxide 27.3 mmol/L (21.6-31.8); Chloride 106 mmol/L (96-109); Globulin 3.2 g/dL (1.6-3.3); Potassium 4.2 mmol/L (3.5-5.5); Sodium 142 mmol/L (135-145); Total Bilirubin 0.8 mg/dL (0.3-1.2); Total Protein 7.4 g/dL (6.2-8.2)
== END | disposition home or self-care (01) ==
LOC: LABWHC1 12:26
PROVIDERS: ATTEND Internal Medicine Gastroenterology
DX: K74.60 Unspecified cirrhosis of liver (principal); G92.9 Unspecified toxic encephalopathy
CPT/HCPCS: 36415; 80053; 82140; 85025

== ENCOUNTER 2025-01-22 06:15 | Day surgery (SDC) | payer OTHER ==
[2025-01-17 10:16] VITALS: BMI 40.7
[~2025-01-22 06:15] MED LIST changes: -LACTATED RINGERS 1,000 ML IV SCH; +SODIUM CHLORIDE 0.9% 500 ML 500 ML IV SCH
[2025-01-22] MEDS: SODIUM CHLORIDE 0.9% 500 ML 500 ML IV ONE (06:59)
[2025-01-22] MEDS: BENZOCAINE SPRAY 1 EACH MUCOUS MEM ONE ×2 (07:12→07:21)
[2025-01-22] MEDS: fentaNYL (PF) 50 MCG/ML 2 ML AMP IVP ONE (07:13)
[2025-01-22] MEDS: MIDAZOLAM 2 MG/2 ML VIAL IVP ONE ×3 (07:13→07:20)
[2025-01-22 07:43] VITALS: RESP 16; TEMP 97.8
[2025-01-22 11:48] VITALS: BP 111/63; PULSE 79
== END 2025-01-22 09:00 | disposition home or self-care (01) ==
LOC: CATHCVL 06:15
PROVIDERS: ATTEND Internal Medicine Cardiovascular Disease
DX: Z53.8 Procedure and treatment not carried out for other reasons (principal); E78.2 Mixed hyperlipidemia; E11.9 Type 2 diabetes mellitus without complications; Z86.73 Personal history of transient ischemic attack (TIA), and cerebral infarction without residual deficits
CPT/HCPCS: J2250; J3010

== ENCOUNTER → 2025-02-04 | Day surgery (SDC) | payer OTHER ==
[~2025-02-04] MED LIST changes: +LACTATED RINGERS 1,000 ML IV SCH; +PROPOFOL 10 MG/ML 20 ML VIAL IV ONE; -SODIUM CHLORIDE 0.9% 500 ML 500 ML IV SCH
[2025-02-04 06:35] VITALS: RESP 16; TEMP 98.2
[2025-02-04 06:38] LABS: Glucose,Whole Blood 213 mg/dL (70-110)
[2025-02-04] MEDS: INSULIN LISPRO (HumaLOG) 100 UNIT/ML 10 mL VL SQ ONE (06:44)
[2025-02-04] MEDS: SODIUM CHLORIDE 0.9% 500 ML 500 ML IV ONE (07:06)
[2025-02-04] MEDS: BENZOCAINE SPRAY 1 EACH MUCOUS MEM ONE (07:26)
[2025-02-04 08:47] VITALS: BP 114/60; PULSE 82
--- NOTE | 2025-02-06 16:37 | ECHOT ---
TRANSESOPHAGEAL ECHOCARDIOGRAM INDICATION: TIA. PROCEDURE NOTE: After obtaining informed consent, transesophageal echocardiogram was performed in left lateral position using an Omniplane probe. Local and IV sedation were obtained by the investigation division captain. FINDINGS: 1. Interatrial septum: Appears aneurysmally dilated. There was no evidence of left- to-right shunt by color-flow Doppler or [id number] shunt by agitated saline contrast study. 2. There is no thrombus within the left atrial appendage, left atrium, right atrium, right ventricle, or left ventricle. 3. Left ventricle has normal size and systolic function. 4. Left atrium appears enlarged. 5. Right atrium and right ventricle seen within normal limits. 6. Aortic valve is a 3-leaflet valve. There is no evidence of aortic stenosis or regurgitation. Aortic root appears normal. There is trace mitral and mild tricuspid regurgitation noted. CONCLUSIONS: 1. No intracardiac thrombus. 2. Aneurysmal dilatation of the interatrial septum without any evidence of shunting across the septum. 3. Normal LV systolic function. MMODL / IJN: [id number] /
== END ==
LOC: CATHCVL 05:38
PROVIDERS: ATTEND Internal Medicine Cardiovascular Disease
DX: I72.8 Aneurysm of other specified arteries (principal); G45.9 Transient cerebral ischemic attack, unspecified
CPT/HCPCS: 93312; 93320; 93325; J2704

== ENCOUNTER 2025-03-09 00:05 | Emergency (ER) | payer OTHER ==
[2025-03-09 00:10] VITALS: RESP 18; TEMP 98
[2025-03-09 00:12] LABS: Glucose,Whole Blood 175 mg/dL (70-110)
--- NOTE | 2025-03-09 00:45 | ED ---
General Adult HPI - General Chief complaint: Dizziness Stated complaint: possible stroke Time Seen by Provider: 03/09/25 00:17 Source: patient Mode of arrival: ambulatory Limitations: no limitations - History of Present Illness Initial comments: Dictation was produced using [employer] dictation software. please excuse any grammatical, word or spelling errors. Chief Complaint: 45-year-old male presents with dizziness chest pain History of Present Illness: Patient is a 45-year-old male with history of diabetes and nonalcoholic steatohepatitis presents to the ER for couple hours of dizziness. States that he feels like he is drunk but he did not drink any alcohol. Does have some mild chest pressure not rating not associate with shortness of breath. Denies sensation of the room spinning. Significant other at the bedside request testing his ammonia level. Patient Nuys any headache or focal neurologic deficits. The ROS documented in this emergency department record has been reviewed and confirmed by me. Those systems with pertinent positive or negative responses have been documented in the HPI. All other systems are other negative and/or noncontributory. - Related Data Home Medications Medication Instructions Recorded Confirmed Glimepiride [Amaryl] 1 mg PO DAILY 11/23/22 01/30/25 Insulin Glargine,Hum.rec.anlog 60 units SQ DAILY 08/23/24 01/30/25 [Lantus Solostar Pen] Atorvastatin [Lipitor] 40 mg PO DAILY 11/24/24 01/30/25 Cholestyramine (with Sugar) 4 gm PO BID-W/MEALS PRN 11/24/24 01/30/25 [Questran Packet] Dicyclomine [Bentyl] 20 mg PO QID PRN 11/24/24 02/04/25 Emtricitabine/Tenofovir (Tdf) 1 tab PO DAILY 11/24/24 01/30/25 [Emtricitabine-Tenofv 200-300Mg] Ergocalciferol (Vitamin D2) 1,250 mcg PO FR 11/24/24 01/30/25 [Drisdol (50,000 Iu)] Famotidine [Pepcid] 20 mg PO BID 11/24/24 01/30/25 Lactulose 10 gm PO TID PRN 11/24/24 02/04/25 Meclizine [Antivert] 25 mg PO TID PRN 11/24/24 01/30/25 Omeprazole 20 mg PO AC-BID 11/24/24 01/30/25 hydrOXYzine HCL [Atarax] 25 mg PO TID PRN 11/24/24 02/04/25 lisinopriL [Zestril] 2.5 mg PO DAILY 11/24/24 01/30/25 metFORMIN HCL 500 mg PO BID 11/24/24 01/30/25 INSULIN LISPRO (HumaLOG) [HumaLOG] 5 units SQ TID-W/MEALS MDD PLUS 01/17/25 01/30/25 SLIDING SCALE Previous Rx's Medication Instructions Recorded Aspirin 81 mg PO DAILY #30 tab 11/26/24 Allergies Allergy/AdvReac Type Severity Reaction Status Date / Time No Known Allergies Allergy Verified 03/09/25 00:10 Review of Systems ROS Statement: Those systems with pertinent positive or pertinent negative responses have been documented in the HPI. ROS Other: All systems not noted in ROS Statement are negative. Past Medical History Past Medical History: Diabetes Mellitus, GERD/Reflux, Hyperlipidemia, Hypertension, Liver Disease Additional Past Medical History / Comment(s): [place] - nonalcoholic steatohepatitis, Hx. H.Pylori,Type II DM, vertigo, hx of TIA like episode no residuals, unable to do MELLISSA without sedation. History of Any Multi-Drug Resistant Organisms: None Reported Past Surgical History: Appendectomy Additional Past Surgical History / Comment(s): penile surg at the age of 5 (unsure what was the procedure was), liver biopsy, EGD/colonoscopy. attempted MELLISSA Past Anesthesia/Blood Transfusion Reactions: No Reported Reaction Additional Past Anesthesia/Blood Transfusion Reaction / Comment(s): HAS NEVER GENERAL ANESTHESIA. Past Psychological History: Anxiety Smoking Status: Former smoker, Vaper Past Alcohol Use History: Rare Past Drug Use History: None Reported - Past Family History Father Family Medical History: Liver Disease Additional Family Medical History / Comment(s): ETOH cirrhosis General Exam - General Exam Comments Initial Comments: PHYSICAL EXAM: General Impression: Alert and oriented x3, not in acute distress HEENT: Normocephalic atraumatic, extra-ocular movements intact, pupils equal and reactive to light bilaterally, mucous membranes moist. Cardiovascular: Heart regular rate and rhythm Chest: Able to complete full sentences, no retractions, no tachypnea Abdomen: abdomen soft, non-tender, non-distended, no organomegaly Musculoskeletal: Pulses present and equal in all extremities, no peripheral edema Motor: no focal deficits noted Neurological: CN II-XII grossly intact, no focal motor or sensory deficits noted Skin: Intact with no visualized rashes Psych: Normal affect and mood Limitations: no limitations Course Vital Signs 03/09/25 00:07 Temperature 98 F Pulse Rate 83 Respiratory 18 Rate Blood Pressure 117/82 O2 Sat by Pulse 99 Oximetry EKG Findings - EKG Comments: EKG Findings:: My EKG interpretation: Ventricular rate 79, sinus rhythm,. 148, QRS 93, QTc 413. No HI prolongation, no QTC prolongation, no ST or T-wave changes noted. Overall, this EKG is unremarkable Medical Decision Making - Medical Decision Making Was pt. sent in by a medical professional or institution (Dr. PA, [employer], urgent care, hospital, or long-term...) When possible be specific @ -No Did you speak to anyone other than the patient for history (EMS, parent, family, police, friend...)? What history was obtained from this source @ -No Did you review nursing and triage notes (agree or disagree)? Why? @ -I reviewed and agree with nursing and triage notes Were old charts reviewed (outside hosp., previous admission, EMS record, old EKG, old radiological studies, urgent care reports/EKG's, long-term records)? Report findings @ -No old charts were reviewed Differential Diagnosis (chest pain, altered mental status, abdominal pain women, abdominal pain men, vaginal bleeding, musculoskeletal, weakness, fever, dyspnea, syncope, headache, dizziness, GI bleed, back pain, seizure, CVA, palpatations, mental health)? @ -Differential Dizziness: Benign paroxysmal positional Vertigo, Meniere's disease, otitis media, acoustic neuroma, vertebrobasilar insufficiency, cerebellar stroke, encephalitis, hypovolemic, arrhythmia, coronary artery syndrome, anemia, this is not meant to be an all-inclusive list EKG interpreted by me (3pts min.). @ -See above X-rays interpreted by me (1pt min.). @ -None done CT interpreted by me (1pt min.). @ -None done U/S interpreted by me (1pt. min.). @ -None done What testing was considered but not performed or refused? (CT, X-rays, U/S, labs)? Why? @ -None What meds were considered but not given or refused? Why? @ -None Was smoking cessation discussed for >3mins.? @ -No Were there social determinants of health that impacted care today? How? (Homelessness, low income, unemployed, alcoholism, drug addiction, transportation, low edu. Level, literacy, decrease access to med. care, correction, rehab)? @ -No Was there de-escalation of care discussed even if they declined (Discuss DNR or withdrawal of care, Hospice)? DNR status @ -No What co-morbidities impacted this encounter? (DM, HTN, Smoking, COPD, CAD, Cancer, CVA, ARF, Chemo, Hep., AIDS, mental health diagnosis, sleep apnea, morbid obesity)? @ -None Was patient admitted / discharged? Hospital course, mention meds given and route, prescriptions, significant lab abnormalities, going to OR and other pertinent info. @ -45-year-old male presents with dizziness. Vital signs stable. Physical ex amination benign. No focal symptoms. Denies sensation of room spinning. No symptoms while at rest. Laboratory evaluation obtained. Labs unremarkable except for ammonia of 30. He has history of elevated ammonia. Given dose of lactulose. Patient otherwise well-appearing will be discharged. Told to follow-up with primary care doctor. Patient told to take his lactulose as prescribed states that he has not been taking it recently. Did you discuss the management of the patient with other professionals (professionals i.e. , PA, [employer], lab, RT, psych nurse, social group worker, extender, teacher, worldwide chief creative officer, telehealth case manager)? Give summary @ -No Was critical care preformed (if so, how long)? @ -No Undiagnosed new problem with uncertain prognosis? @ -No Drug Therapy requiring intensive monitoring for toxicity (Heparin, Nitro, Insulin, Cardizem)? @ -No Were any procedures done? @ -No Diagnosis/symptom? Acute, or Chronic, or Acute on Chronic? Uncomplicated (without systemic symptoms) or Complicated (systemic symptoms)? @ -Dizziness Side effects of treatment? @ -No Exacerbation, Progression, or Severe Exacerbation? @ -No Poses a threat to life or bodily function? How? (Chest pain, [place], [place], pneumonia, PE, COPD, DKA, ARF, appy, cholecystitis, CVA, Diverticulitis, Homicidal, Suicida l, threat to staff... and all critical care pts) @ -No - Lab Data Result diagrams: 03/09/25 00:44 03/09/25 00:44 Lab Results 03/09/25 03/09/25 03/09/25 Range/Units 00:10 00:44 00:44 WBC 4.81 (4.50-10.00) 10*3/uL RBC 4.86 (4.40-5.60) 10*6/uL Hgb 14.2 (13.0-17.0) g/dL Hct 41.6 (39.6-50.0) % MCV 85.6 (80.0-97.0) fL MCH 29.2 (27.0-32.0) pg MCHC 34.1 (32.0-37.0) g/dL Plt Count 87 L (140-440) 10*3/uL MPV 9.4 L (9.5-12.2) fL Immature Gran % (Auto) 0.2 % Neutrophils % 70.3 % Lymphocytes % 20.6 % Monocytes % 7.1 % Eosinophils % 1.2 % Basophils % 0.6 % Immature Gran # 0.01 (0.00-0.04) 10*3/uL Neutrophils # 3.38 (1.80-7.70) 10*3/uL Lymphocytes # 0.99 (0.90-5.00) 10*3/uL Monocytes # 0.34 (0.20-1.00) 10*3/uL Eosinophils # 0.06 (0.04-0.35) 10*3/uL Basophils # 0.03 (0.00-0.10) 10*3/uL Immature Plt Fraction 1.5 (1.1-6.1) % PT 11.6 (10.0-12.5) sec INR 1.1 (<1.2) APTT 25.9 (22.0-30.0) sec Sodium (137-145) mmol/L Potassium (3.5-5.1) mmol/L Chloride (98-107) mmol/L Carbon Dioxide (22-30) mmol/L Anion Gap mmol/L BUN (9-20) mg/dL Creatinine (0.66-1.25) mg/dL Est GFR (CKD-EPI)AfAm (>60 ml/min/1.73 sqM) Est GFR (CKD-EPI)NonAf (>60 ml/min/1.73 sqM) Glucose (74-99) mg/dL POC Glucose (mg/dL) 175 H (70-110) mg/dL POC Glu Induction Machine Operator MARCIA Omalley Calcium (8.4-10.2) mg/dL Magnesium (1.6-2.3) mg/dL Total Bilirubin (0.2-1.3) mg/dL AST (17-59) U/L ALT (4-49) U/L Alkaline Phosphatase (38-126) U/L Ammonia (<30) umol/L Troponin I (0.000-0.034) ng/mL Total Protein (6.3-8.2) g/dL Albumin (3.5-5.0) g/dL Lipase (23-300) U/L 03/09/25 03/09/25 03/09/25 Range/Units 00:44 00:44 00:44 WBC (4.50-10.00) 10*3/uL RBC (4.40-5.60) 10*6/uL Hgb (13.0-17.0) g/dL Hct (39.6-50.0) % MCV (80.0-97.0) fL MCH (27.0-32.0) pg MCHC (32.0-37.0) g/dL Plt Count (140-440) 10*3/uL MPV (9.5-12.2) fL Immature Gran % (Auto) % Neutrophils % % Lymphocytes % % Monocytes % % Eosinophils % % Basophils % % Immature Gran # (0.00-0.04) 10*3/uL Neutrophils # (1.80-7.70) 10*3/uL Lymphocytes # (0.90-5.00) 10*3/uL Monocytes # (0.20-1.00) 10*3/uL Eosinophils # (0.04-0.35) 10*3/uL Basophils # (0.00-0.10) 10*3/uL Immature Plt Fraction (1.1-6.1) % PT (10.0-12.5) sec INR (<1.2) APTT (22.0-30.0) sec Sodium 136 L (137-145) mmol/L Potassium 3.7 (3.5-5.1) mmol/L Chloride 103 (98-107) mmol/L Carbon Dioxide 24 (22-30) mmol/L Anion Gap 9 mmol/L BUN 17 (9-20) mg/dL Creatinine 0.81 (0.66-1.25) mg/dL Est GFR (CKD-EPI)AfAm >90 (>60 ml/min/1.73 sqM) Est GFR (CKD-EPI)NonAf >90 (>60 ml/min/1.73 sqM) Glucose 177 H (74-99) mg/dL POC Glucose (mg/dL) (70-110) mg/dL POC Glu Induction Machine Operator ID Calcium 8.9 (8.4-10.2) mg/dL Magnesium 1.6 (1.6-2.3) mg/dL Total Bilirubin 0.9 (0.2-1.3) mg/dL AST 37 (17-59) U/L ALT 42 (4-49) U/L Alkaline Phosphatase 87 (38-126) U/L Ammonia 30 H (<30) umol/L Troponin I <0.012 (0.000-0.034) ng/mL Total Protein 7.4 (6.3-8.2) g/dL Albumin 4.1 (3.5-5.0) g/dL Lipase 336 H (23-300) U/L Disposition Clinical Impression: Hyperammonemia Disposition: HOME SELF-CARE Condition: Fair Instructions (If sedation given, give patient instructions): Dizziness (ED) Is patient prescribed a controlled substance at d/c from ED?: No Referrals: None,Stated [REFERRING] - 1-2 days Time of Disposition: 03:00
[2025-03-09] MEDS: SODIUM CHLORIDE 0.9% 1,000 ML IV STA (00:51)
[2025-03-09] MEDS: METOCLOPRAMIDE 5 MG/ML 2 ML VIAL IVP STA (00:52)
[2025-03-09 01:00] LABS: Basophils # (A) 0.03 10*3/uL (0.00-0.10); Basophils % (A) 0.6 %; Eosinophils # (A) 0.06 10*3/uL (0.04-0.35); Eosinophils % (A) 1.2 %; HCT 41.6 % (39.6-50.0); HGB 14.2 g/dL (13.0-17.0); Immature Platelet Fraction 1.5 % (1.1-6.1); Lymphocytes # (A) 0.99 10*3/uL (0.90-5.00); Lymphocytes % (A) 20.6 %; MCH 29.2 pg (27.0-32.0); MCHC 34.1 g/dL (32.0-37.0); MCV 85.6 fL (80.0-97.0); Mean Platelet Volume 9.4 fL (9.5-12.2); Monocytes # (A) 0.34 10*3/uL (0.20-1.00); Monocytes % (A) 7.1 %; Neutrophils # (A) 3.38 10*3/uL (1.80-7.70); Neutrophils % (A) 70.3 %; RBC 4.86 10*6/uL (4.40-5.60); RDW 13.7 % (11.5-14.5); WBC 4.81 10*3/uL (4.50-10.00)
[2025-03-09 01:01] LABS: Platelet Count 87 10*3/uL (140-440)
[2025-03-09 01:07] LABS: INR 1.1 (<1.2); Partial Thromboplastin Time 25.9 sec (22.0-30.0); Prothrombin Time 11.6 sec (10.0-12.5)
[2025-03-09 01:12] LABS: ALT 42 U/L (4-49); AST 37 U/L (17-59); African American GFR (CKD) >90 (>60 ml/min/1.73 sqM); Albumin 4.1 g/dL (3.5-5.0); Alkaline Phosphatase 87 U/L (38-126); Anion Gap 9 mmol/L; Blood Urea Nitrogen 17 mg/dL (9-20); Calcium 8.9 mg/dL (8.4-10.2); Carbon Dioxide 24 mmol/L (22-30); Chloride 103 mmol/L (98-107); Glucose 177 mg/dL (74-99); Lipase 336 U/L (23-300); Magnesium 1.6 mg/dL (1.6-2.3); Non-African American GFR(CKD) >90 (>60 ml/min/1.73 sqM); Sodium 136 mmol/L (137-145); Total Bilirubin 0.9 mg/dL (0.2-1.3); Total Protein 7.4 g/dL (6.3-8.2)
[2025-03-09 02:03] LABS: Potassium 3.7 mmol/L (3.5-5.1)
[2025-03-09] MEDS: LACTULOSE 20 GM/30 ML CUP PO ONE (03:19)
[2025-03-09 04:37] VITALS: BP 110/77; PULSE 85
== END 2025-03-09 03:27 | disposition home or self-care (01) ==
LOC: EC 00:05
DX: E72.20 Disorder of urea cycle metabolism, unspecified (principal); F17.290 Nicotine dependence, other tobacco product, uncomplicated
CPT/HCPCS: 36415; 93005; 80053; 82140; 83690; 83735; 84484; 85025; 85610; 85730; 99284; 96374; 96361; J2765

== ENCOUNTER → 2025-03-14 | Outpatient (CLI) | payer OTHER ==
[2025-03-14 15:31] LABS: Basophils # (A) 0.02 X 10*3/uL (0.00-0.10); Basophils % (A) 0.5 %; Eosinophils # (A) 0.07 X 10*3/uL (0.04-0.35); Eosinophils % (A) 1.7 %; HCT 45.1 % (39.6-50.0); HGB 14.6 g/dL (13.0-17.0); Lymphocytes # (A) 0.98 X 10*3/uL (0.90-5.00); Lymphocytes % (A) 24.4 %; MCH 28.6 pg (27.0-32.0); MCHC 32.4 g/dL (32.0-37.0); MCV 88.4 FL (80.0-97.0); Mean Platelet Volume 9.8 FL (9.5-12.2); Monocytes % (A) 7.5 %; NRBC Per 100 WBC 0 X 10*3/uL (0.00-0.01); Neutrophils # (A) 2.64 X 10*3/uL (1.80-7.70); Neutrophils % (A) 65.7 %; Platelet Count 93 X 10*3/uL (140-440); RDW 14.2 % (11.5-14.5); WBC 4.02 X 10*3/uL (4.50-10.00)
[2025-03-14 15:39] LABS: BUN/Creat Ratio 12.09 Ratio (12.00-20.00); Blood Urea Nitrogen 13.3 mg/dL (9.0-27.0); Carbon Dioxide 28.5 mmol/L (21.6-31.8); Chloride 103 mmol/L (96-109); Chol/HDL Ratio 3.07 Ratio; Glucose 123 mg/dL (70-110); LDL Cholesterol,Calculated 71.6 mg/dL (0.0-131.0); Potassium 4.1 mmol/L (3.5-5.5); Sodium 142 mmol/L (135-145); VLDL Calculation 10.68 mg/dL (5.00-40.00)
[2025-03-14 15:40] LABS: ALT 47 U/L (10-49); AST 34 U/L (14-35); Albumin 4.3 g/dL (3.8-4.9); Alkaline Phosphatase 94 U/L (41-126); Calcium 9.3 mg/dL (8.7-10.3); Globulin 3.3 g/dL (1.6-3.3); Total Bilirubin 0.7 mg/dL (0.3-1.2); Total Protein 7.6 g/dL (6.2-8.2)
[2025-03-14 17:36] LABS: Microalbumin Creatinine Ratio <8 mg/g Cr (0-30)
[2025-03-16 09:08] LABS: Amylase 44 U/L (23-121); Lipase 35 U/L (14-60)
== END | disposition home or self-care (01) ==
LOC: LABWHC1 10:18
PROVIDERS: ATTEND Family Medicine
DX: E11.65 Type 2 diabetes mellitus with hyperglycemia (principal)
CPT/HCPCS: 36415; 80053; 80061; 82043; 82150; 82570; 83036; 83690; 85025; 87390